=== PATIENT | male | born 1950 | race Caucasian/White ===

== ENCOUNTER 2019-08-12 18:18 | Inpatient (IN) | payer OTHER, MEDICARE ==
--- OUTSIDE RECORDS SUMMARY | 2019-08-12 18:21 | XMS REPORT ---
:1950 [facility] [place] [address] Care Team Providers Name Role Phone Unavailable Unavailable Unavailable Payers Payer Name Policy Type Policy Number Effective Date Expiration Date Problems This patient has no known problems. Allergies, Adverse Reactions, Alerts Allergy Allergy Status Severity Reaction(s) Onset Inactive Treating Comments Name Type Date Date Clinician No Known DA Active U 2018-11 Allergies -14 00:00:0 0 No Known DA Active U 2017-06 Allergies -04 00:00:0 0 Medications This patient has no known medications. Results Test Description Test Time Test Comments Text Results Atomic Results Result Comments - XR PELVIS 1/2 VIEWS 2018-12-08 12:21:00 Patient Name: KYLEIGH LY Unit No: [id number] EXAMS: CPT CODE: [id number] XR PELVIS 1/2 VIEWS 14987 AP view the pelvis COMMENT: COMPARISON: No prior exams available. Completed total is a hip arthroplasty. Prosthesis appears to be in good position. at 1221 Reported and signed by: Sharlene Sow MD CC: Lori Nazario MD Technologist: KECIA MENDEZ, RT(R) Transcribed D/ (1221) tMANUELG [facility] NAME: KYLEIGH LY [address] [facility] [address] PHYS: PATAN.06 - Lori Nazario : 1950 AGE: 68 SEX: M [place], [place] [address] LOC: Y.507 A PHONE #: [phone] EXAM DATE: 12/04/2018 STATUS: DIS IN FAX #: [phone] RAD #: D/C DT 12/06/2018 PAGE 1 Signed Report Patient Name: KYLEIGH LY Unit No: [id number] EXAMS: CPT CODE: [id number] XR PELVIS 1/2 VIEWS 54236 <Continued> Orig Print D/T: S: 12/08/2018 (1224) [facility] NAME: KYLEIGH LY [address] [facility] [address] PHYS: PATAN.06 - Nazario,Lori Oliva : 1950 AGE: 68 SEX: M [place], [place] [address] LOC: Y.507 A PHONE #: [phone] EXAM DATE: 12/04/2018 STATUS: DIS IN FAX #: [phone] RAD #: D/C DT 12/06/2018 PAGE 2 Signed Report GLUBED 2018-12-06 05:41:00 Test Item Value Reference Range Comments GLUBED (test code=GLUBED) 198 mg/dL 60-125 [id number] 20:19:00 Test Item Value Reference Range Comments GLUBED (test code=GLUBED) 278 mg/dL 60-125 GLYCOSYLATED HEMOGLOBIN (HA1C)2018-12-05 19:15:00 Test Item Value Reference Range Comments GLYCOSYLATED HEMOGLOBIN 7.5 % 4.8-5.9 Any condition that shortens (HA1C) (test code=GLYHGB) erythocyte survival or decreasesmean erythrocyte age (e.g., recovery from acute blood loss,hemolytic anemai) will falsely lower HGBA1c resultsregardless of the method used. HGBA1c results frompatients with HbSS, HbCC and HbSc must be interpreted withcaution given the pathological processes, including anemia,increased red cell turnover, transfusion requirements, thatadversely impact HGBA1c as a marker of long-term glycemiccontrol. Alternative forms of testing such as fructosamineshould be considered for these patients.DONE AT: [facility] [address] [place] [address] [id number] 16:46:00 Test Item Value Reference Range Comments GLUBED (test code=GLUBED) 313 mg/dL 60-125 [id number] 11:46:00 Test Item Value Reference Range Comments GLUBED (test code=GLUBED) 322 mg/dL 60-125 BASIC METABOLIC [id number] 06:12:00 Test Item Value Reference Range Comments SODIUM (test code=NA) 138 mmol/L 136-145 POTASSIUM (test code=K) 4.3 mmol/L 3.5-5.1 CHLORIDE (test code=CL) 102.0 mmol/L 98-107 CARBON DIOXIDE (test 27.9 mmol/L 21-32 code=CO2) GLUCOSE (test code=GLU) 275 mg/dL 70-110 BLOOD UREA NITROGEN (test 30 mg/dL 7-18 code=BUN) GLOMERULAR FILTRATION RATE 75.0 >60 Unit of measure: (test code=GFR) mL/min/1.73 x5Vyhqqvwyq Range:Healthy Adults >90 mL/min/1.73 m2 For Chronic Kidney Disease: Stage II Mild Decrease in GFR 60-90 Stage III Moderate Decrease in GFR 30-59 Stage IV Severe Decrease in GFR 15-29 Stage V Kidney Failure <15 CREATININE (test code=CREAT) 0.99 mg/dL 0.55-1.30 CALCIUM (test code=CA) 7.8 mg/dL 8.2-10.1 HGB [id number] 05:50:00 Test Item Value Reference Range Comments HEMOGLOBIN (test code=HGB) 10.3 g/dL 12-16 HEMATOCRIT (test code=HCT) 29.8 % 37-47 [id number] 05:31:00 Test Item Value Reference Range Comments GLUBED (test code=GLUBED) 217 mg/dL 60-125 [id number] 20:07:00 Test Item Value Reference Range Comments GLUBED (test code=GLUBED) 297 mg/dL 60-125 [id number] 16:55:00 Test Item Value Reference Range Comments GLUBED (test code=GLUBED) 306 mg/dL 60-125 - XR KNEE 1 OR 2 V [id number] 16:37:00 Patient Name: KYLEIGH LY Unit No: [id number] EXAMS: CPT CODE: [id number] XR KNEE 1 OR 2 [place] [address] COMPARISON: None IMAGES PROVIDED: AP view the pelvis and 5 views of the leftfemur FINDINGS: Acute transcervical left femoral neck fracture is demonstrated with 2 mm of superior displacement. Mild left hip joint degenerative changes. Enthesophytes are seen about the greater tuberosity. Vascular calcifications are present. No acute findings of the left knee. IMPRESSION: Acute left femoral neck fracture. Electronically Signed by Sarah Trent on 12/04/2018 at 1637 Reported and signed by: Shine Trent M.D. CC: Bill Mitchell MD; Calin Bowie MD Technologist: RT Dakotah.(R) Transcribed D/T: 2018 (2397) [facility] NAME: KYLEIGH LY [address] [facility] PHYS : Calin Ronquillo MD : 1950 AGE: 68 SEX: M [place] [address] LOC: Y.507 A PHONE #: [phone] EXAM DATE: 12/04/2018 STATUS: ADM IN FAX#: [phone] RAD #: D/C DT PAGE 1Signed Report Patient Name: KYLEIGH LY Unit No: [id number] EXAMS: CPT CODE: [id number] XR KNEE 1 [place] [address] [place] [address] <Continued> Orig Print D/T: S: 12/04/2018 (1640) [facility] NAME: KYLEIGH LY [address] [facility] PHYS: Calin Ronquillo MD : 1950 AGE: 68 SEX: M [place], [place] [address] LOC: Y.507 A PHONE #: EXAM DATE: 12/04/2018 STATUS: ADM IN FAX #: [phone] RAD #: D/C DT PAGE 2 Signed Report- XR HIP W/PEL UNI 2+V [id number] 16:37:00 Patient Name: KYLEIGH LY Unit No: [id number] EXAMS: CPT CODE: [id number] XR HIP W/PEL UNI 2+[place] [address] COMPARISON: None IMAGES PROVIDED: AP view the pelvis and 5 views of the leftfemur FINDINGS: Acute transcervical left femoral neck fracture is demonstrated with 2 mm of superior displacement. Mild left hip joint degenerative changes. Enthesophytes are seen about the greater tuberosity. Vascular calcifications are present. No acute findings of the left knee. IMPRESSION: Acute left femoral neck fracture. Electronically Signed by Sarah Trent on 2018 at 1637 Reported and signed by: Shine Trent M.D. CC: Bill Mitchell MD ; Calin Bowie MD Technologist: Dakotah RT.(R) Transcribed D/ (6587) [facility] NAME: KYLEIGH LY [address] [facility] PHYS: Calin Ronquillo MD : 1950 AGE: 68 SEX: M [place], [place] [address] LOC: Y.507 A PHONE #: [phone] EXAM DATE: STATUS: ADM IN FAX#: [phone] RAD #: D/C DT PAGE 1Signed Report Patient Name: KYLEIGH LY Unit No: [id number] EXAMS: CPT CODE: [id number] XR HIP W /PEL UNI 2+[place] [address] <Continued> Orig Print D/T: S: 12/04/2018 (1640) [facility] NAME: KYLEIGH LY [address] [facility] PHYS: Calin Ronquillo MD : 1950 AGE: 68 SEX: M [place], [place] [address] LOC: Y.507 A PHONE #: [phone] EXAM DATE: 12/04/2018 STATUS: ADM IN FAX #: [phone] RAD #: D/C DT PAGE 2 Signed [id number] 12:39:00 Test Item Value Reference Range Comments GLUBED (test code=GLUBED) 276 mg/dL 60-125 COMPREHENSIVE METABOLIC [id number] 06:53:00 Test Item Value Reference Range Comments SODIUM (test code=NA) 138 mmol/L 136-145 POTASSIUM (test code=K) 3.9 mmol/L 3.5-5.1 CHLORIDE (test code=CL) 97.0 mmol/L 98-107 CARBON DIOXIDE (test code=CO2) 23.3 mmol/L 21-32 GLUCOSE (test code=GLU) 228 mg/dL 70-110 BLOOD UREA NITROGEN (test 21 mg/dL 7-18 code=BUN) GLOMERULAR FILTRATION RATE 98.7 >60 Unit of measure: (test code=GFR) mL/min/1.73 [id number] Range:Healthy Adults >90 mL/min/1.73 m2 For Chronic Kidney Disease: Stage II Mild Decrease in GFR 60-90 Stage III Moderate Decrease in GFR 30-59 Stage IV Severe Decrease in GFR 15-29 Stage V Kidney Failure <15 CREATININE (test code=CREAT) 0.78 mg/dL 0.55-1.30 TOTAL PROTEIN (test code=PROT) 8.1 g/dL 6.4-8.2 ALBUMIN (test code=ALB) 4.3 g/dL 3.4-5.0 GLOBULIN (test code=GLOB) 3.8 g/dL 2.2-4.2 ALBUMIN/GLOBULIN RATIO (test 1.1 0.7-2.0 code=A/G) CALCIUM (test code=CA) 9.6 mg/dL 8.2-10.1 BILIRUBIN TOTAL (test 0.73 mg/dL 0.2-1.00 code=BILT) SGOT/AST (test code=AST) 28.0 U/L 15-37 SGPT/ALT (test code=ALT) 39.0 U/L 12-78 Please note new normal range. ALKALINE PHOSPHATASE TOTAL 66 U/L 46-116 (test code=ALKP) PROTHROMBIN [id number] 06:41:00 Test Item Value Reference Range Comments PROTHROMBIN TIME PATIENT 11.8 secs 10.1-12.5 (test code=PTP) INTERNATIONAL NORMAL RATIO 1.04 <2.0 RECOMMENDED THERAPEUTIC RANGE (test code=INR) FOR ORAL ANTICOAGULANTTREATMENT: CONDITION INRProphylaxis of venous thrombosis in 2.0 - 3.0 high-risk medical or surgical patientsTreatment of venous thrombosis 2.0 - 3.0Prevention of embolism 2.0 - 3.0Prevention of recurrent embolism, or 3.0 - 4.5 patients with mechanical prosthetic intravascular valves IS PATIENT ON ANTICOAGULANTS ? YLIST ANTICOAGULANT/ANTI PLT MEDICATION : Plavix (Anti-PLT)Has Lab been notified if Patient is on Heparin Drip? YESAddn't Lab Tests to be ordered if Y. NIf Yes, order CBC, OCCULT BLOOD, PT every other day NTHROMBOPLASTIN TIME [id number] 06:41:00 Test Item Value Reference Range Comments PTT ACTIVATED (test code=APTT) 31.1 secs 24.9-37.0 IS PATIENT ON ANTICOAGULANTS ? YLIST ANTICOAGULANT/ANTI PLT MEDICATION : Plavix (Anti-PLT)Has Lab been notified if Patient is on Heparin Drip? YESAddn't Lab Tests to be ordered if Y. NIf Yes, order CBC, OCCULT BLOOD, PT every other day [id number] 05:53:00 Test Item Value Reference Range Comments GLUBED (test code=GLUBED) 221 mg/dL 60-125 CBC W/AUTO [id number] 05:41:00 Test Item Value Reference Range Comments WHITE BLOOD CELL (test code=WBC) 10.3 K/mm3 5.7-10.5 RED BLOOD CELL (test code=RBC) 4.39 M/mm3 4.2-5.4 HEMOGLOBIN (test code=HGB) 14.1 g/dL 12-16 HEMATOCRIT (test code=HCT) 40.7 % 37-47 MEAN CELL VOLUME (test code=MCV) 93 fL 80-98 MEAN CELL HGB (test code=MCH) 32.1 pg 27-34 MEAN CELL HGB CONCENTRATION (test code=MCHC) 34.6 g/dL 30.8-34.1 RED CELL DISTRIBUTION WIDTH (test code=RDW) 11.9 % 11-16 PLT (test code=PLT) 163 K/mm3 130-400 MEAN PLATELET VOLUME (test code=MPV) 11.0 fL 8.9-12.1 NEUTROPHIL % (test code=NT%) 81.5 % 45-70 LYMPHOCYTE % (test code=LY%) 10.5 % 20-40 MONOCYTE % (test code=MO%) 6.2 % 3-10 EOSINOPHIL % (test code=EO%) 0.1 % 1-5 BASOPHIL % (test code=BA%) 0.3 % 0.0-1.1 NEUTROPHIL # (test code=NT#) 8.42 K/mm3 2.00-7.50 LYMPHOCYTE # (test code=LY#) 1.08 K/mm3 1.50-4.00 MONOCYTE # (test code=MO#) 0.64 K/mm3 0.2-0.8 EOSINOPHIL # (test code=EO#) 0.01 K/mm3 0.04-0.4 BASOPHIL # (test code=BA#) 0.03 K/mm3 0.02-0.10 MANUAL DIFF REQUIRED (test code=MDIFF) NO MANUAL DIFF NUCLEATED RED BLOOD CELL (test code=NRBC) 0 % 0-0
[2019-08-12 19:03] LABS: Absolute Lymphocytes (CBC) 2.6 K/uL (0.7-4.9); Basophils % 0.6 % (0-1.3); Hematocrit 38.8 % (39.6-49.0); Lymphocytes % 38.7 % (15.3-44.8); MPV 7.9 fL (7.6-11.3); RBC Red Blood Cell Count 4.09 M/uL (4.33-5.43)
[2019-08-12 19:14] LABS: Protime INR 0.99
--- NOTE | 2019-08-12 19:34 | RAD REPORT ---
EXAM DESCRIPTION: Saman Single View08/12/2019 7:24 pm CLINICAL HISTORY: Chest pain COMPARISON: 2011 FINDINGS: The lungs appear clear of acute infiltrate. The heart is mildly enlarged. Postsurgical changes involve the chest. IMPRESSION: No acute abnormalities displayed
[2019-08-12 19:38] LABS: Albumin 3.9 g/dL (3.4-5.0); Bilirubin Direct 0.1 mg/dL (0-0.2); Bilirubin Total 0.5 mg/dL (0.2-1.0); Protein, Total 7.5 g/dL (6.4-8.2)
[2019-08-12 19:42] LABS: Troponin (Emerg Dept Use Only) 0.56 ng/mL (0.0-0.045)
[2019-08-12] MEDS ORDERED: ASPIRIN 81 MG CHEWABLE TABLET ONE (19:56)
[2019-08-12] MEDS ORDERED: ENOXAPARIN 60 MG/0.6 ML SQ ONE (19:56)
--- NOTE | 2019-08-12 20:45 | ER ---
[facility] Name: Ehsan Emmanuel Age: 69 yrs Sex: Male : 1950 Arrival Date: 08/12/2019 Time: 18:19 Bed 19 Private MD: Diagnosis: Non-ST elevation (NSTEMI) myocardial infarction Presentation: 08/12 18:21 Presenting complaint: Patient states: "Yesterday I was doing some physical labor, and I aj1 ended up with this pain right under my breast bone and I couldn't sleep last night. I wear a C-PAP and I couldn't seem to get enough air. Today its the same thing. I can't get rid of this pain, and I'm still short of breath. Back in 2002 I ended up with a heart attack, weakness was my only symptom that time and I ended up with a triple bypass.". Transition of care: patient was not received from another setting of care. Onset of symptoms was August 11, 2019. Risk Assessment: Do you want to hurt yourself or someone else? Patient reports no desire to harm self or others. Initial Sepsis Screen: Does the patient meet any 2 criteria? HR > 90 bpm. No. Patient's initial sepsis screen is negative. Does the patient have a suspected source of infection? No. Patient's initial sepsis screen is negative. Care prior to arrival: None. 18:21 Method Of Arrival: Ambulatory aj 18:21 Acuity: IZABELLA 2 aj1 Triage Assessment: 18:33 General: Appears in no apparent distress. uncomfortable, Behavior is calm, cooperative, aj1 appropriate for age. Pain: Complains of pain in chest Pain currently is 2 out of 10 on a pain scale. Neuro: Level of Consciousness is awake, alert, obeys commands. Cardiovascular: Reports chest pain, Patient's skin is warm and dry. Respiratory: Airway is patent Respiratory effort is even, unlabored, Respiratory pattern is regular, symmetrical. Historical: - Allergies: 18:33 No Known Allergies; aj1 - Home Meds: 18:33 carvedilol 25 mg oral tab 1 tab 2 times per day [Active]; clopidogrel 75 mg oral tab 1 aj1 tab once daily [Active]; curaphen [Active]; Curcumin miscellaneous daily [Active]; duloxetine 60 mg oral cpDR 1 cap once daily [Active]; Ecotrin 81 mg Oral once daily [Active]; exelon patch 4.6 mg [Active]; Ferrous Sulfate Oral twice daily [Active]; glipizide-metformin 5-500 mg oral tab 1 tab 2 times per day [Active]; pravastatin 40 mg oral tab 1 tab once daily [Active]; tamsulosin 0.4 mg oral cp24 1 cap once daily [Active]; Trulicity 1.5 mg/0.5 mL subcutaneous pnij 0.5 mL once wkly [Active]; Restasis ophthalmic ophthalmic [Active]; - PMHx: 18:33 Diabetes - NIDDM; Myocardial infarction; colon cancer- currently in remission; aj1 Hypertension; Hyperlipidemia; - Immunization history:: Flu vaccine is up to date. - Social history:: Smoking status: Patient/guardian denies using tobacco. - Ebola Screening: : Patient denies travel to an Ebola-affected area in the 21 days before illness onset. Screenin:54 Abuse screen: Denies threats or abuse. Denies injuries from another. Nutritional mg2 screening: No deficits noted. Tuberculosis screening: No symptoms or risk factors identified. Fall Risk IV access (20 points). Assessment: 18:53 General: Appears in no apparent distress. comfortable, Behavior is calm, cooperative. mg2 Pain: Complains of pain in chest Pain does not radiate. Quality of pain is described as aching, dull, Pain began gradually, 1 day ago. Is intermittent. Neuro: Level of Consciousness is awake, alert, obeys commands, Oriented to person, place, time, situation. Cardiovascular: Capillary refill < 3 seconds Patient's skin is warm and dry. Respiratory: Airway is patent Respiratory effort is even, unlabored, Respiratory pattern is regular, symmetrical. GI: No signs and/or symptoms were reported involving the gastrointestinal system. : No signs and/or symptoms were reported regarding the genitourinary system. EENT: No signs and/or symptoms were reported regarding the EENT system. Derm: Skin is intact, is healthy with good turgor, Skin is pink, warm \\T\\ dry. normal. Musculoskeletal: Circulation, motion, and sensation intact. Capillary refill < 3 seconds. Vital Signs: 18:33 BP 156 / 86; Pulse 77; Resp 18; Temp 97.5; Pulse Ox 99% on R/A; Weight 116.57 kg (R); aj1 Height 6 ft. 11 in. (210.82 cm) (R); Pain 2/10; 18:53 BP 119 / 67 RA (/reg); Pulse 76; Resp 15 S; Temp 98.7(O); Pulse Ox 99% on R/A; Pain jp3 2/10; 19:30 BP 135 / 70; Pulse 79; Resp 18; Pulse Ox 98% on R/A; rv 20:00 BP 154 / 85; Pulse 74; Resp 17; Pulse Ox 100% on R/A; rv 20:30 BP 147 / 75; Pulse 74; Resp 17; Pulse Ox 98% on R/A; rv 21:00 BP 141 / 75; Pulse 81; Resp 17; Pulse Ox 99% on R/A; rv 21:30 BP 143 / 75; Pulse 81; Resp 18; Pulse Ox 99% on R/A; rv 22:00 BP 142 / 80; Pulse 74; Resp 17; Pulse Ox 100% on R/A; rv 23:00 BP 153 / 83; Pulse 71; Resp 17; Pulse Ox 99% on R/A; rv 18:33 Body Mass Index 26.23 (116.57 kg, 210.82 cm) aj1 ED Course: 18:19 Patient arrived in ED. as 18:25 Triage completed. aj1 18:32 Bonifacio Pena, RN is Primary Nurse. rv 18:33 Arm band placed on Patient placed in an exam room. aj1 18:45 Florentin Nieves PA is PHCP. [facility] 18:45 Luz Domingo MD is Attending Physician. [facility] 18:49 EKG done, by ED staff, reviewed by Luz Domingo MD. Patient maintains SpO2 jp3 saturation greater than 95% on room air. 18:50 Placed in gown. Bed in low position. Call light in reach. Side rails up X 1. Side rails jp3 up X2. Verbal reassurance given. websphere message broker developer on. Pulse ox on. NIBP on. 18:55 No provider procedures requiring assistance completed. Inserted saline lock: 20 gauge mg2 in right forearm, using aseptic technique. Blood collected. 19:24 XRAY Chest (1 view) In Process Unspecified. EDMS 20:18 EKG done, by ED staff, reviewed by Florentin ELIAS. jp3 20:35 CT Chest For PE Angio In Process Unspecified. EDMS 20:45 Bill Mitchell MD is Hospitalizing Provider. jmm 23:36 Patient admitted, IV remains in place. rv Administered Medications: 20:15 Drug: Aspirin Chewable Tablet 324 mg Route: PO; rv 23:38 Follow up: Response: No adverse reaction rv 20:15 Drug: Lovenox 1 mg/kg Route: Sub-Q; Site: abdomen; rv 23:38 Follow up: Response: No adverse reaction rv 21:55 Drug: pravastatin Sodium 40 mg Route: PO; rv 23:37 Follow up: Response: No adverse reaction rv 21:55 Drug: Flomax 0.4 mg Route: PO; rv 23:37 Follow up: Response: No adverse reaction rv 22:13 Drug: carvedilol 25 mg Route: PO; rv 23:37 Follow up: Response: No adverse reaction rv 22:13 Drug: Cymbalta 60 mg Route: PO; rv 23:37 Follow up: Response: No adverse reaction rv Outcome: 20:45 Decision to Hospitalize by Provider. jmm 23:36 Admitted to ER Hold. Please see [facility] for further documentation. rv 23:36 Condition: good 23:36 Instructed on the need for admit. 08/13 12:20 Admitted to ICU accompanied by nurse, accompanied by tech, via stretcher, on monitor, aa5 with chart, Report called to AJ Carmona Condition: stable 12:25 Patient left the ED. aa5 Signatures: Dispatcher [employer] EDMS Rola Esquivel RN RN aj1 Florentin Nieves PA PA jmm Martinez, Amelia as Calderon, Audri, RN RN [id number] Ariana Robledo Iris Crawley Michele RN AJ mg2 Bonifacio Pena RN RN rv Gaurang Juares jp3 Corrections: (The following items were deleted from the chart) 15:07 07:20 BP 146 / 82; Pulse 70bpm; Resp 19bpm; Pulse Ox 96% RA; Temp 98.7F Oral; mh5 aa5 15:07 09:19 BP 165 / 95; Pulse 74bpm; Resp 16bpm; Pulse Ox 99% RA; Temp 98.5F Oral; mh5 aa5 15:07 12:49 Patient left the ED. aa5
--- NOTE | 2019-08-12 20:45 | RAD REPORT ---
EXAM DESCRIPTION: CT - Chest For Pe Angio - 08/12/2019 8:34 pm CLINICAL HISTORY: Chest pain COMPARISON: None. TECHNIQUE: Dynamically enhanced axial 3 mm thick images of the chest were obtained during administra tion of <100> mL Isovue 370 IV contrast. Coronal and oblique reconstruction images were generated and reviewed. Exam utilizes a protocol for optimal evaluation of pulmonary arterial tree. Maximum intensity projections 3D imaging was utilized All CT scans are performed using dose optimization technique as appropriate and may include automated exposure control or mA/KV adjustment according to patient size. FINDINGS: A pulmonary embolus is not seen. A thoracic aortic aneurysm is not noted. A pleural effusion is not seen. A pericardial effusion is not seen. A lung consolidation is not present. Multiple gallstones. Gallbladder wall does not appear thickened IMPRESSION: Negative for a pulmonary embolism. Cholelithiasis
--- NOTE | 2019-08-12 20:46 | EDPHYS ---
Physician Documentation [facility] Name: Ehsan Emmanuel Age: 69 yrs Sex: Male : 1950 Arrival Date: 08/12/2019 Time: 18:19 Bed 19 Private MD: ED Physician Luz Domingo HPI: 08/12 20:29 This 69 yrs old Male presents to ER via Ambulatory with complaints of Chest jmm Pain. 20:29 The patient or guardian reports chest pain that is located primarily in the substernal jmm area. Onset: gradually, 1 day(s) ago. The pain does not radiate. Associated signs and symptoms: Pertinent positives: shortness of breath. The chest pain is described as aching. Duration: The patient or guardian reports a single episode, that is still ongoing. Modifying factors: The symptoms are alleviated by nothing. the symptoms are aggravated by nothing. This is a 69 year old male with a history of DM, OH, colon cancer that presents to the ED with complaints of chest pain beginning last night. Patient states developing shortness of breath. Patient denies radiation of pain. Denies fever. Denies cough. . Historical: - Allergies: 18:33 No Known Allergies; aj1 - Home Meds: 18:33 carvedilol 25 mg oral tab 1 tab 2 times per day [Active]; clopidogrel 75 mg oral tab 1 aj1 tab once daily [Active]; curaphen [Active]; Curcumin miscellaneous daily [Active]; duloxetine 60 mg oral cpDR 1 cap once daily [Active]; Ecotrin 81 mg Oral once daily [Active]; exelon patch 4.6 mg [Active]; Ferrous Sulfate Oral twice daily [Active]; glipizide-metformin 5-500 mg oral tab 1 tab 2 times per day [Active]; pravastatin 40 mg oral tab 1 tab once daily [Active]; tamsulosin 0.4 mg oral cp24 1 cap once daily [Active]; Trulicity 1.5 mg/0.5 mL subcutaneous pnij 0.5 mL once wkly [Active]; Restasis ophthalmic ophthalmic [Active]; - PMHx: 18:33 Diabetes - NIDDM; Myocardial infarction; colon cancer- currently in remission; aj1 Hypertension; Hyperlipidemia; - Immunization history:: Flu vaccine is up to date. - Social history:: Smoking status: Patient/guardian denies using tobacco. - Ebola Screening: : Patient denies travel to an Ebola-affected area in the 21 days before illness onset. ROS: 20:29 Constitutional: Negative for fever, chills, and weight loss. jmm 20:29 Cardiovascular: Positive for chest pain. 20:29 Respiratory: Positive for shortness of breath. 20:29 All other systems are negative. Exam: 20:29 Constitutional: This is a well developed, well nourished patient who is awake, alert, jmm and in no acute distress. Head/Face: atraumatic. Eyes: EOMI, no conjunctival erythema appreciated ENT: Moist Mucus Membranes Neck: Trachea midline, Supple Chest/axilla: Normal chest wall appearance and motion. 20:29 Respiratory: Normal respirations, no respiratory distress appreciated Abdomen/GI: Non distended, soft Back: Normal ROM Skin: General appearance color normal MS/ Extremity: Moves all extremities, no obvious deformities appreciated, no edema noted to the lower extremities Neuro: Awake and alert, normal gait Psych: Behavior is normal, Mood is normal, Patient is cooperative and pleasant 20:29 Cardiovascular: Rate: normal, Rhythm: regular, Pulses: no pulse deficits are appreciated. Vital Signs: 18:33 BP 156 / 86; Pulse 77; Resp 18; Temp 97.5; Pulse Ox 99% on R/A; Weight 116.57 kg (R); aj1 Height 6 ft. 11 in. (210.82 cm) (R); Pain 2/10; 18:53 BP 119 / 67 RA (/reg); Pulse 76; Resp 15 S; Temp 98.7(O); Pulse Ox 99% on R/A; Pain jp3 2/10; 19:30 BP 135 / 70; Pulse 79; Resp 18; Pulse Ox 98% on R/A; rv 20:00 BP 154 / 85; Pulse 74; Resp 17; Pulse Ox 100% on R/A; rv 20:30 BP 147 / 75; Pulse 74; Resp 17; Pulse Ox 98% on R/A; rv 21:00 BP 141 / 75; Pulse 81; Resp 17; Pulse Ox 99% on R/A; rv 21:30 BP 143 / 75; Pulse 81; Resp 18; Pulse Ox 99% on R/A; rv 22:00 BP 142 / 80; Pulse 74; Resp 17; Pulse Ox 100% on R/A; rv 23:00 BP 153 / 83; Pulse 71; Resp 17; Pulse Ox 99% on R/A; rv 18:33 Body Mass Index 26.23 (116.57 kg, 210.82 cm) aj1 MDM: 18:53 Patient medically screened. jennifer 20:43 Data reviewed: vital signs, nurses notes. Counseling: I had a detailed discussion with jennifer the patient and/or guardian regarding: the historical points, exam findings, and any diagnostic results supporting the discharge/admit diagnosis, lab results, the need for further work-up and treatment in the hospital. ED course: I discussed the patient with Dr. Andino whom will consult admission. Recommended npo after midnight. I discussed the patient with Dr. Mitchell whom accepted admission. . 08/12 18:36 Order name: Basic Metabolic Panel; Complete Time: 19:51 mg2 08/12 18:36 Order name: CBC with Diff; Complete Time: 19:15 mg2 08/12 18:36 Order name: LFT's; Complete Time: 19:51 mg2 08/12 18:36 Order name: Magnesium; Complete Time: 19:51 mg2 08/12 18:36 Order name: NT PRO-BNP; Complete Time: 19:51 mg2 08/12 18:36 Order name: PT-INR; Complete Time: 19:29 mg2 08/12 18:36 Order name: Troponin (emerg Dept Use Only); Complete Time: 19:51 mg2 08/12 18:36 Order name: XRAY Chest (1 view); Complete Time: 19:38 mg2 08/12 21:08 Order name: Basic Metabolic Panel EDIL 08/12 21:08 Order name: Basic Metabolic Panel EDIL 08/12 21:09 Order name: Troponin I; Complete Time: 23:20 EDIL 08/13 05:46 Order name: Troponin I EDIL 08/13 05:52 Order name: CBC with Automated Diff EDIL 08/13 08:02 Order name: Glucose, Ancillary Testing EDIL 08/12 18:36 Order name: EKG; Complete Time: 18:37 mg2 08/12 18:36 Order name: Cardiac monitoring; Complete Time: 18:51 mg2 08/12 18:36 Order name: EKG - Nurse/Tech; Complete Time: 18:52 mg2 08/12 20:19 Order name: CT Chest For PE Angio; Complete Time: 20:49 [facility] 08/12 21:09 Order name: CONS Physician Consult EDIL 08/12 21:09 Order name: Consistent Carb (ADA) 2000 [address] EDMS 08/12 21:09 Order name: EKG Electrocardiogram EDIL 08/12 21:09 Order name: EKG Electrocardiogram EDIL 08/12 21:09 Order name: EKG Electrocardiogram EDIL 08/12 21:09 Order name: EKG Electrocardiogram [facility] 08/12 18:36 Order name: IV Saline Lock; Complete Time: 18:52 [facility] 08/12 18:36 Order name: Labs collected and sent; Complete Time: 18:52 [facility] 08/12 18:36 Order name: O2 Per Protocol; Complete Time: 18:52 [facility] 08/12 18:36 Order name: O2 Sat Monitoring; Complete Time: 18:52 [facility] 08/12 19:52 Order name: EKG - Nurse/Tech; Complete Time: 20:07 [facility] Administered Medications: 20:15 Drug: Aspirin Chewable Tablet 324 mg Route: PO; rv 23:38 Follow up: Response: No adverse reaction rv 20:15 Drug: Lovenox 1 mg/kg Route: Sub-Q; Site: abdomen; rv 23:38 Follow up: Response: No adverse reaction rv 21:55 Drug: pravastatin Sodium 40 mg Route: PO; rv 23:37 Follow up: Response: No adverse reaction rv 21:55 Drug: Flomax 0.4 mg Route: PO; rv 23:37 Follow up: Response: No adverse reaction rv 22:13 Drug: carvedilol 25 mg Route: PO; rv 23:37 Follow up: Response: No adverse reaction rv 22:13 Drug: Cymbalta 60 mg Route: PO; rv 23:37 Follow up: Response: No adverse reaction rv Disposition: 08/12/19 20:45 Hospitalization ordered by Bill Mitchell for Inpatient Admission. Preliminary diagnosis is Non-ST elevation (NSTEMI) myocardial infarction. - Bed requested for Intensive Care Unit. - Status is Inpatient Admission. eb - Condition is Stable. - Problem is new. - Symptoms are unchanged. UTI on Admission? No Signatures: Dispatcher [employer] EDMS Rola Esquivel RN RN aj1 Beulah Min RN RN dw Mickail, Joel, PA PA jmm Garcia, Cookie, RN RN cg Reyna Iris Myke Singletary, RN RN [facility] Bonifacio Pena, RN RN rv Corrections: (The following items were deleted from the chart) 22:44 20:45 Hospitalization Ordered by Bill Mitchell MD for Inpatient Admission. Preliminary cg diagnosis is Non-ST elevation (NSTEMI) myocardial infarction. Bed requested for Telemetry/MedSurg (Inpatient). Status is Inpatient Admission. Condition is Stable. Problem is new. Symptoms are unchanged. UTI on Admission? No. [facility] 22:44 22:44 08/12/2019 20:45 Hospitalization Ordered by Bill Mitchell MD for Inpatient cg Admission. Preliminary diagnosis is Non-ST elevation (NSTEMI) myocardial infarction. Bed requested for RUST ER HOLD. Status is Inpatient Admission. Condition is Stable. Problem is new. Symptoms are unchanged. UTI on Admission? No. 08/13 10:58 08/12 22:44 08/12/2019 20:45 Hospitalization Ordered by Bill Mitchell MD for Inpatient dw Admission. Preliminary diagnosis is Non-ST elevation (NSTEMI) myocardial infarction. Bed requested for RUST ER HOLD. Status is Inpatient Admission. Condition is Stable. Problem is new. Symptoms are unchanged. UTI on Admission? No. 08/13 12:49 10:58 08/12/2019 20:45 Hospitalization Ordered by Bill Mitchell MD for Inpatient eb Admission. Preliminary diagnosis is Non-ST elevation (NSTEMI) myocardial infarction. Bed requested for Intensive Care Unit. Status is Inpatient Admission. Condition is Stable. Problem is new. Symptoms are unchanged. UTI on Admission? No. dw
[2019-08-12] MEDS ORDERED: ACETAMINOPHEN 500 MG TAB PO PRN (21:05)
[2019-08-12] MEDS ORDERED: ONDANSETRON 4 MG/2 ML VIAL IV PRN (21:05)
[2019-08-12] MEDS ORDERED: MORPHINE 4 MG/ML SYR IV PRN (21:05)
[2019-08-12] MEDS ORDERED: TAMSULOSIN 0.4 MG SR CAP ONE (21:29)
[2019-08-12] MEDS ORDERED: DULOXETINE 30 MG CAP PO ONE (21:54)
[2019-08-12] MEDS: carvediloL 25 MG TAB ONE (21:55)
[2019-08-13 00:24] VITALS: BMI 26.2
[2019-08-13 05:42] LABS: BUN Blood Urea Nitrogen 14 mg/dL (7-18); Bicarbonate 29 mmol/L (21-32); Glucose Level 196 mg/dL (74-106); Potassium 3.6 mmol/L (3.5-5.1); Sodium Level 140 mmol/L (136-145)
[2019-08-13 05:47] LABS: Absolute Lymphocytes (CBC) 2.3 K/uL (0.7-4.9); Basophils % 0.5 % (0-1.3); Hematocrit 36.5 % (39.6-49.0); MPV 7.9 fL (7.6-11.3); RBC Red Blood Cell Count 3.81 M/uL (4.33-5.43)
--- NOTE | 2019-08-13 06:13 | EKG ---
Test Date: 2019-08-12 Test Time: 20:08:11 Wildlife Biology Technician: RV MEASUREMENT RESULTS: Intervals: Rate: 69 FL: 242 QRSD: 94 QT: 458 QTc: 490 [place]: P: 66 FL: 242 QRS: 71 T: 193 INTERPRETIVE STATEMENTS: Sinus rhythm with 1st degree AV block T wave abnormality, consider inferior ischemia T wave abnormality, consider anterolateral ischemia Prolonged QT Abnormal ECG Compared to ECG 08/12/2019 18:40:22 First degree AV block now present T-wave abnormality now present Sinus arrhythmia no longer present ST (T wave) deviation no longer present Possible ischemia still present Electronically Signed On 08-13-19 06:12:47 RESIDENTIAL ENERGY AUDITOR by Kofi Diaz
--- NOTE | 2019-08-13 06:14 | EKG ---
Test Date: 2019-08-12 Test Time: 18:40:22 [employer]: DESTINI MEASUREMENT RESULTS: Intervals: Rate: 76 MI: 200 QRSD: 88 QT: 428 QTc: 481 [place]: P: 16 MI: 200 QRS: 71 T: 190 INTERPRETIVE STATEMENTS: Normal sinus rhythm with sinus arrhythmia ST & T wave abnormality, consider inferior ischemia ST & T wave abnormality, consider anterolateral ischemia Prolonged QT Abnormal ECG Compared to ECG 08/12/2019 18:39:31 ST (T wave) deviation now present Possible ischemia now present Prolonged QT interval now present Electronically Signed On 08-13-19 06:13:25 HEAD GREENSKEEPER by Kofi Diaz
--- NOTE | 2019-08-13 06:14 | EKG ---
Test Date: 2019-08-12 Test Time: 18:39:31 Manager Privacy: DESTINI MEASUREMENT RESULTS: Intervals: Rate: 0 CT: QRSD: 0 QT: 0 QTc: 0 [place]: P: CT: QRS: 0 T: 0 INTERPRETIVE STATEMENTS: No QRS complexes found, no ECG analysis possible Compared to ECG 12/19/2008 20:03:23 Sinus rhythm no longer present T-wave abnormality no longer present Possible ischemia no longer present Prolonged QT interval no longer present Electronically Signed On 08-13-19 06:13:34 BLOCKING MACHINE OPERATOR SECOND by Kofi Diaz
[2019-08-13] MEDS ORDERED: ASPIRIN 81 MG CHEWABLE TABLET ONE (07:25)
[2019-08-13] MEDS ORDERED: ASPIRIN EC 81 MG TAB PO SCH (09:00)
[2019-08-13] MEDS ORDERED: carvediloL 25 MG TAB PO ONE (10:46)
[2019-08-13] MEDS ORDERED: carvediloL 6.25 MG TAB ONE (10:56)
[2019-08-13 14:21] VITALS: O2SAT 100
[2019-08-13] MEDS ORDERED: HEPA 1000U/500MLS 0 UNIT/0 ML BAG IV ONE (15:34)
[2019-08-13] MEDS ORDERED: MIDAZOLAM HCL 5 MG/5 ML INJ ONE (15:35)
[2019-08-13] MEDS ORDERED: NA CHLORIDE 0.9% 0 ML IV ONE (15:35)
[2019-08-13] MEDS ORDERED: FENTANYL CITR 100 MCG/2 ML ONE (15:35)
[2019-08-13] MEDS ORDERED: ATROPINE SULF 1 MG/10 ML SYR IV ONE (15:35)
[2019-08-13] MEDS ORDERED: NA CHLORIDE 0.9% 1,000 ML ONE (15:46)
[2019-08-13] MEDS ORDERED: HEPA 1000U/500MLS 1,000 UNIT/500 ML BAG IV ONE (16:07)
--- NOTE | 2019-08-13 17:46 | P.SSS ---
Patient History Date of Service: 08/13/19 Reason for admission: CHEST PAIN History of Present Illness: MR. LY IS A DIABETIC WITH CAD AND CABG COMES WITH CHEST PAIN FOR ABOUT 18 HOURS. HE HAD TROPONIN MILD HIGH. HE MAY HAVE HAD NSTMI. DR. SYED DID CATH AND DID NOT SEE ANY NEW FINDINGS. HIS BYPASS IS WORKING GREAT. HE IS STABLE FOR DC PER DR. SYED. Allergies No Known Allergies Allergy (Verified 07/20/16 10:17) Home Medications: Clopidogrel Bisulfate [Plavix*] 75 mg PO DAILY 05/31/16 Duloxetine HCl [Cymbalta] 60 mg PO BID 05/31/16 Krill/Om-3/Dha/Epa/Phospho/Ast [Megared [place]-3 Krill Oil Sfgl] 1 each PO DAILY 05/31/16 Pravastatin [Pravachol*] 40 mg PO DAILY 05/31/16 Tamsulosin [Flomax*] 0.4 mg PO BEDTIME 05/31/16 carvediloL [Coreg*] 25 mg PO BID 05/31/16 Aspirin [Ecotrin 81 MG] 81 mg PO DAILY 08/13/19 Curcumin 500 gm MC BID 08/13/19 Dulaglutide [Trulicity] 1.5 mg SQ Q7D 08/13/19 Glipizide/Metformin HCl [Glipizide-Metformin 5-500 mg] 2 each PO BID 08/13/19 Rivastigmine Patch [Exelon 4.6 mg Patch*] 1 each TD DAILY 08/13/19 - Past Medical/Surgical History Diabetic: Yes - Social History Smoking Status: Never smoker Alcohol use: No CD- Drugs: No Caffeine use: No Place of Residence: Home Review of Systems 10-point ROS is otherwise unremarkable Physical Examination - Vital Signs Temperature: 98.4 F Blood Pressure: 157/79 Pulse: 68 Respirations: 18 Pulse Ox (%): 100 - Physical Exam General: Alert, In no apparent distress, Obese HEENT: Atraumatic, PERRLA, Mucous membr. moist/pink, EOMI, Sclerae nonicteric Neck: Supple, 2+ carotid pulse no bruit, No LAD, Without JVD or thyroid abnormality Respiratory: Clear to auscultation bilaterally, Normal air movement Cardiovascular: Regular rate/rhythm, Normal S1 S2 Gastrointestinal: Normal bowel sounds, No tenderness Musculoskeletal: No tenderness Integumentary: No rashes Neurological: Normal gait, Normal speech, Normal strength at 5/5 x4 extr, Normal tone, Normal affect Lymphatics: No axilla or inguinal lymphadenopathy - Studies Laboratory Data (last 24 hrs) 08/12/19 18:45: PT 11.7, INR 0.99 08/12/19 18:45: WBC 6.8, Hgb 13.6, Hct 38.8 L, Plt Count 187 08/12/19 18:45: Sodium 139, Potassium 4.0, BUN 17, Creatinine 1.00, Glucose 194 H, Magnesium 2.0, Total Bilirubin 0.5, AST 28, ALT 42, Alkaline Phosphatase 68 - Diagnosis (Problem(s)) (1) Angina at rest Current Visit: Yes Status: Acute Plan: DR. SYED WAS NOT SURE ABOUT NM. HE HAS WORKING BYPASS. HE HAS SEVERE CAD BENEATH AND WILL HAVE PAIN AT TIMES. DR. SYED OKAY WITH DC HE HAS BEEN STABLE. I SAW HIMIN AM. (2) Coronary artery disease involving autologous artery coronary bypass graft Current Visit: Yes Status: Acute (3) Diabetes Current Visit: Yes Status: Acute (4) HTN (hypertension) Current Visit: Yes Status: Acute (5) Alzheimer disease Current Visit: Yes Status: Acute - Disposition Disposition: ROUTINE DISCHARGE Condition: FAIR
--- NOTE | 2019-08-13 18:08 | CON ---
Date of Consultation: 08/13/2019 Reason For Admission: Non-ST elevation myocardial infarction. History Of Present Illness: Mr. Emmanuel is a 69-year-old, had bypass x3 in the past. Has a history of hypertension, dyslipidemia, diabetes, depression, benign prostatic hypertrophy. Came in with exertio nal chest pain that lasted about a day and a half with shortness of breath. He was found to have an EKG that showed inferior ischemia. Creatinine was 1.0. Chest x-ray was negative. Troponin was ____ . BNP of 3494. He is asymptomatic now. Received Lovenox already. Past Medical History: As stated above. Allergies: NONE. Review of Systems: Negative. Social History: Negative. Family History: Noncontributory. Medications: At home include Invokana, Flomax, aspirin, Plavix, metformin, glyburide, Cymbalta, Pros car, Coreg, and Pravachol. Physical Examination: Vital Signs: Stable. Afebrile. HEENT: Negative. Neck: Supple with no bruit. Chest: Clear to auscultation and percussion. Cardiac: Revealed a regular rhythm and rate. No murmurs, gallops, or rubs. Abdomen: Benign. Extremities: Revealed no clubbing, cyanosis, or edema. Diagnostic Data: As stated earlier. Impression: 1.Non-ST elevation myocardial infarction, acute. 2.Coronary artery disease, status post coronary artery bypass graft x3. 3.Hypertension. 4.Dyslipidemia. 5.Diabetes. 6.Benign prostatic hypertrophy. 7.Depression. including Plavix and Lovenox should be held after the morning dose. I would keep him on c lear liquid and then n.p.o. after that. We will plan a heart catheterization for this afternoon to d ocument his coronary anatomy and see if we can intervene. The case was discussed with Dr. Emmanuel. He understands the risk and the benefits of the procedure and he agreed to proceed. ROSALINA/VITA Voice ID: [id number] Report ID: [id number]
[2019-08-13 18:29] VITALS: TEMP 97.9
[2019-08-13] MEDS: carvediloL 25 MG TAB ONE (18:51)
[2019-08-13 19:19] VITALS: BP 132/76
--- NOTE | 2019-08-13 23:59 | OP ---
Surgeon: Kofi Diaz MD Cloth Edge Singer: Monik Cox. History: The patient admitted to Dr. Mitchell on 08/12/2019, with a non-ST elevation myocardial infarct ion. Description Of Procedure: The patient was brought to the laborer salvage as an inpatient today, prepped and draped in the routine sterile fashion. Given Versed for sedation. Six-Trinidadian sheath was introduced in the right common femoral artery and a StarClose was used to close the case. Angiography using le ft Krystian showed 100% occlusion of the LAD, 100% occlusion of the circumflex. A JR4 was used that s howed 100% occlusion of the [place] RCA. He had a graft that was a split graft to the OM1 and to the PDA from the RCA, which was widely patent. The JOHN was widely patent to the LAD with excellent dist al flow. Six-Trinidadian sheath and catheters were used. Complications: No complications. Blood Loss: 5 mL. Postoperative Diagnosis: Status post bypass surgery, severe coronary artery disease, patent graft an d JOHN. Plan: Plan is for medical therapy. Anesthesia: Total conscious sedation for 30 minutes. ROSALINA/VITA Voice ID: [id number] Report ID: [id number]
== END 2019-08-13 20:00 | disposition home or self-care (01) | DRG 282 ==
LOC: ER 18:18 → ERHOLD 21:40 → 3RD-ICU 08-13 11:38
PROVIDERS: ADMIT Internal Medicine; ATTEND Internal Medicine
PROC: 4A023N7 Measurement of Cardiac Sampling and Pressure, Left Heart, Percutaneous Approach (ICD-10-PCS; principal; 2019-08-13)
PROC: B201YZZ Plain Radiography of Multiple Coronary Arteries using Other Contrast (ICD-10-PCS; 2019-08-13)
PROC: B203YZZ Plain Radiography of Multiple Coronary Artery Bypass Grafts using Other Contrast (ICD-10-PCS; 2019-08-13)
PROC: B205YZZ Plain Radiography of Left Heart using Other Contrast (ICD-10-PCS; 2019-08-13)
DX: I21.4 Non-ST elevation (NSTEMI) myocardial infarction (principal); I25.119 Atherosclerotic heart disease of native coronary artery with unspecified angina pectoris; I10 Essential (primary) hypertension; Z95.1 Presence of aortocoronary bypass graft; E11.9 Type 2 diabetes mellitus without complications; N40.0 Benign prostatic hyperplasia without lower urinary tract symptoms; F32.9 Major depressive disorder, single episode, unspecified; Z79.82 Long term (current) use of aspirin
CPT/HCPCS: 36415; 71045; 71275; 80048; 80076; 82947; 83735; 83880; 84484; 85025; 85610; 93005; 93455; 96372; 99285; C1893; J0583; J1650; J2250; J3010; J7030; Q9967

== ENCOUNTER 2022-06-07 20:42 | Observation (INO) | payer OTHER, MEDICARE ==
--- OUTSIDE RECORDS SUMMARY | 2022-06-07 20:46 | XMS REPORT | Continuity of Care Document ---
:1950 Author Organization [facility] t Address [facility] Alfred Cruz. [address] [place] [address] Care Team Providers Name Role Phone Juventino Jaimes V Attending Clinician Payers Payer Name Policy Type Policy Number Effective Date Expiration Date S ource Problems Condition Condition Condition Status Onset Resolution Last Treating Co mments Source Name Details Category Date Date Treatment Clinician Date UNK UNK Diagnosis Active 2016-2017-06-11 Mem oria Active 04-04 05:18:00 l 04/04/2017 00:00: Ahsan Anne Maysel Benign Benign Problem Active 2017-06-14 Mayito isidro prostatic prostatic 00:13:29 l [facility]order[facility] Active Problem 06/14/2017 [facility] Insomnia Insomnia Problem Active 2017-06-14 Memoria (disorder) (disorder) 00:13:29 l Active Alfred Problem 06/14/2017 [facility] PERSONAL PERSONAL Diagnosis Active 2017-06-11 Memoria HISTORY OF HISTORY OF 05:18:00 l COLONIC COLONIC Alfred [facility] My[facility] Problem Resolve 2017-06-14 Memoria infarction l d 00:13:29 l (disorder) infarction He rmann (disorder) Resolved Problem 06/14/20172002 [facility] Diabetes Diabetes Problem Active 2017-06-14 Memoria mellitus mellitus 00:13:29 l (disorder) (disorder) He rmann Active Problem 06/14/2017 [facility] Hyperchole Hyperchol Problem Active 2017-06-14 Memoria sterolemia esterolemi 00:13:29 l (disorder) a Ahsan n (disorder) Active Problem 06/14/2017 [facility] Hypertensi Hypertens Problem Active 2017-06-14 Memoria ve joaquín 00:13:29 l disorder, disorder, Herm alyx systemic systemic arterial arterial (disorder) (disorder) Active Problem 06/14/2017 [facility] Allergies, Adverse Reactions, Alerts Allergy Allergy Status Severity Reaction(s) Onset Inactive Treating Comm ents Source Name Type Date Date Clinician No Known DA Active [facility] [place] No Known DA Active U 2016-09 [facility]04 [place] [facility] Social History Smoking Status Start Date Stop Date Source Social History 2017-06-11 11:51:30 2017-06-11 11:51:[address] [facility] Medications Ordered Filled Start Stop Current Ordering Indication Dosage Frequency Signature Comments Components Source Medication Medication Date Date Medication? Clinician (SIG) Name Name sodium No 1,000 mL, Memori a chloride 06-11 Rate: 25 l 0.9% 1000 11:36: ml/hr, Ahsan n ml INJ 00 Infuse 1,000 mL over: 40 hr, Route: IV, Dosing Weight 109.545 kg, Total Volume: 1,000, Start date: 06/11/17 6:36:00 CDT, Duration: 30 day, Stop date: 07/11/17 6:35:00 CDT Polyethylen Yes 1 drp, Mayito isidro e Glycol 06-07 OPTH, BID, l 400 4 MG/ML 15:11: PRN for Her aguero / Propylene 00 dry eyes, glycol 3 # 30 ml, 0 MG/ML Refill(s) Ophthalmic Solution [Systane] empaglifloz Yes 25 mg = 1 M emoria in 25 MG 06-07 tab, PO, l Oral Tablet 15:11: QAM, 0 Jae alyx [Jardiance] 00 Refill(s) Non-Formula Yes Sinu-Pro Me moria ry Home 06-07 otc, l Medication 15:10: Refill(s) He rmann 00 0 QUEtiapine Yes 25 mg = 1 Me moria 25 mg oral 9-15 tab, PO, l tablet 15:09: Bedtime, # Diann nn 00 30 tab, 1 Refill(s) Zolpidem Yes 5 mg = 1 Memor ia tartrate 5 9-15 tab, PO, l MG Oral 15:09: Bedtime, Ahsan n Tablet 00 PRN for [Ambien] sleep, 0 Refill(s) tamsulosin Yes 0.4 mg = 1 M emoria 0.4 mg oral 9-15 cap, PO, l capsule 15:09: Daily, # Ahsan n 00 30 cap, 0 Refill(s) 24 HR Yes = 1 patch, Memori a rivastigmin 9-15 TOP, l e 0.396 15:09: Daily, Alfred MG/HR 00 apply to Transdermal skin, # 90 Patch patch, 1 Refill(s) Nature's Yes 1,000 mg = Mem oria Bounty Red 15 2 cap, PO, l Krill Oil 15:08: BID, 0 Ahsan n 500 mg oral 00 Refill(s) capsule pravastatin Yes 40 mg = 1 M emoria 40 mg oral 9-15 tab, PO, l tablet 15:08: Bedtime, # Diann nn 00 30 tab, 0 Refill(s) aspirin 81 Yes 81 mg = 1 Me moria mg tablet, 9-15 tab, PO, l enteric 15:07: Daily, # Ahsan n coated 00 90 tab, 3 Refill(s) duloxetine Yes 60 mg = 1 Me moria 60 MG 9-15 cap, PO, l Enteric 15:07: Daily, # Ahsan n Coated 00 30 cap, 0 Capsule Refill(s) [Cymbalta] Glyburide 5 Yes 1 tab, PO, Memoria MG / 9-15 BID-Meals, l Metformin 15:07: # 60 tab, Her aguero hydrochlori 00 0 de 500 MG Refill(s) Oral Tablet finasteride Yes 5 mg = 1 Me moria 5 mg oral 9-15 tab, PO, l tablet 15:07: Daily, # Maysel 00 30 tab, 0 Refill(s) Non-Formula Yes Curaphen Me moria ry Home 9-15 supplement l Medication 15:06: , Alfred 00 Refill(s) 0 clopidogrel Yes 75 mg = 1 M emoria 75 mg oral -15 tab, PO, l tablet 15:05: Daily, Alfred 00 last dose 06-04-2017 , # 30 tab, 0 Refill(s) Centrum 2017 Yes 1 tab, PO, Mayito isidro Silver 9-15 Daily, 0 l Men's 15:05: Refill(s) Maysel 00 carvedilol Yes 12.5 mg = Me moria 12.5 mg 9-15 1 tab, PO, l oral tablet 15:04: BID, # 180 Maysel 00 tab, 0 Refill(s) Vital Signs Vital Name Observation Time Observation Value Comments Source Respitory Rate 2017-06-11 14:00:00 Memori al Maysel Systolic (mm Hg) 2017-06-11 14:00:00 Mayito rial Maysel Diastolic (mm Hg) 2017-06-11 14:00:00 Mem orial Maysel Systolic (mm Hg) 2017-06-11 13:00:00 Mayito rial Alfred Diastolic (mm Hg) 2017-06-11 13:00:00 Mem orial Alfred Respitory Rate 2017-06-11 13:00:00 Memori al Alfred Systolic (mm Hg) 2017-06-11 12:45:00 Mayito rial Alfred Diastolic (mm Hg) 2017-06-11 12:45:00 Mem orial Maysel Respitory Rate 2017-06-11 12:45:00 Pilar al Maysel Heart Rate 2017-06-07 14:55:[address] [facility] Temperature Oral (F) 2017-06-07 14:55:[address] [facility] Height 2017-06-07 14:55:[address] [facility] BMI Calculated 2017-06-07 14:55:00 [facility] 2017-06-07 14:55:[address] [facility] Procedures Procedure Date / Time Performed Performing Clinician Bryson condon CABG x 3 - Coronary [facility] artery bypass grafts x 3 Encounters Start End Encounter Admission Attending Care Care Encounter Source Date/Time Date/Time Type Type Clinicians Facility Department ID 2017-06-14 2017-06-14 Outpatient RYANNE RYANNE [id number] Memoria 11:30:00 11:30:00 00 [facility] 2017-06-11 2017-06-11 Bedded [facility], [facility] [id number] Memoria 10:18:00 13:20:00 Outpatient r Maysel [address] [facility] 2017-06-11 2017-06-11 Outpatient Inamdar, MHPL MHPL [id number] 05:18:00 08:20:00 Juventino V 00 Results Test Description Test Time Test Comments Results Result Sourc e Comments - XR PELVIS 1/2 2018-12-08 Patient Name: VIEWS 12:21:00 KYLEIGH LY Unit No: [id number] EXAMS: CPT CODE: [id number] XR PELVIS 1/2 VIEWS 57064 AP view the pelvis COMMENT: COMPARISON: No prior exams available. Completed total is a hip arthroplasty. Prosthesis appears to be in good position. at 1221 Reported and signed by: Sharlene Sow MD CC: Lori Nazario MD Technologist: KECIA MENDEZ, RT(R) Transcribed D/ (1221) tLETTYGVG [facility] NAME: KYLEIGH LY [address] [facility] PHYS: Lori Shaw : 1950 AGE: 68 SEX: M [place], [place] [address] LOC: Y.507 A PHONE #: [phone] EXAM DATE: 12/04/2018 STATUS: DIS IN FAX #: [phone] RAD #: D/C DT 12/06/2018 PAGE 1 Signed Report Patient Name: KYLEIGH LY Unit No: [id number] EXAMS: CPT CODE: [id number] XR PELVIS 1/2 VIEWS 55991 (Continued) Orig Print D/T: S: 12/08/2018 (1224) [facility] NAME: KYLEIGH LY [address] [facility] Main PHYS: Lori Shaw : 1950 AGE: 68 SEX: M [place], [place] [address] LOC: Y.507 A PHONE #: [phone] EXAM DATE: 12/04/2018 STATUS: DIS IN FAX #: [phone] RAD #: D/C DT 12/06/2018 PAGE 2 Signed Report GLUBED 2018-12-06 05:41:00 Test Item Value Reference Range Interpretation Comme nts GLUBED (test code = GLUBED) 198 mg/dL 60-125 H [id number] 20:19:00 Test Item Value Reference Range Interpretation Comments GLUBED (test code = GLUBED) 278 mg/dL 60-125 H GLYCOSYLATED HEMOGLOBIN (HA1C)2018-12-05 19:15:00 Test Item Value Reference Range Interpretation Comments GLYCOSYLATED 7.5 % 4.8-5.9 H Any condition t hat shortens HEMOGLOBIN (HA1C) erythocyte survival or (test code = GLYHGB) decreas esmean erythrocyte age (e.g., shanique very from acute blood los s,hemolytic anemai) will fa lsely lower HGBA1c resultsr egardless of the method used . HGBA1c results frompat ients with HbSS, HbCC and HbSc must be interpreted wit hcaution given the patho logical processes, incl uding anemia,increase d red cell turnover, trans fusion requirements, t hatadversely impact HGBA1c a s a marker of long-term glycemiccontrol . Alternative for ms of testing such as fructosaminesho uld be considered for these patients.DONE A T: [facility] [address] [facility], [place], [place] [address] GLYCOSYLATED HEMOGLOBIN [id number] 16:50:00 Test Item Value Reference Range Interpretation Comments GLYCOSYLATED 7.5 % 4.8-5.9 H Any condition t hat HEMOGLOBIN (HA1C) shortens e rythocyte (test code = survival or dec reasesmean GLYHGB) erythrocyte age (e.g., recovery from a cute blood loss,hemolytic anemia) will falsely lo wer HGBA1c resultsregardle ss of the method used. HG BA1c results from nik regalado HbSS, HbCC, and HbSc must be interpreted with cautiongiven th e pathological pr ocesses, including anemia,increase d red cell turnover, trans fusion requirements, thatadversely i mpact HGBA1c as a mar ker of long-term glycemiccontrol . Alternative for ms of testing such as fructosaminesho uld be considered for these patients. MEAN BLOOD GLUCOSE 169 MG/DL 70-110 H (test code = MBG) [id number] 16:46:00 Test Item Value Reference Range Interpretation Comments GLUBED (test code = GLUBED) 313 mg/dL 60-125 H [id number] 11:46:00 Test Item Value Reference Range Interpretation Comments GLUBED (test code = GLUBED) 322 mg/dL 60-125 H BASIC METABOLIC [id number] 06:12:00 Test Item Value Reference Range Interpretation Comments SODIUM (test code = 138 mmol/L 136-145 N NA) POTASSIUM (test code = 4.3 mmol/L 3.5-5.1 N K) CHLORIDE (test code = 102.0 mmol/L 98-107 N CL) CARBON DIOXIDE (test 27.9 mmol/L 21-32 N code = CO2) GLUCOSE (test code = 275 mg/dL 70-110 H GLU) BLOOD UREA NITROGEN 30 mg/dL 7-18 H (test code = BUN) GLOMERULAR FILTRATION 75.0 >60 Unit o f measure: RATE (test code = GFR) mL/mi n/1.73 [id number] Range:Healthy Adults >90 mL/min/1.73 m2 For Chronic Kidney Disease: Stage II Mild Decrease i n GFR 60-90 Stage III Moderate Decrea se in GFR 30-59 St age IV Severe Decre ase in GFR 15-29 St age V Kidney Failur e <15 CREATININE (test code 0.99 mg/dL 0.55-1.30 N = CREAT) CALCIUM (test code = 7.8 mg/dL 8.2-10.1 L CA) HGB [id number] 05:50:00 Test Item Value Reference Range Interpretation Comments HEMOGLOBIN (test code = HGB) 10.3 g/dL 12-16 L HEMATOCRIT (test code = HCT) 29.8 % 37-47 L [id number] 05:31:00 Test Item Value Reference Range Interpretation Comments GLUBED (test code = GLUBED) 217 mg/dL 60-125 H [id number] 20:07:00 Test Item Value Reference Range Interpretation Comments GLUBED (test code = GLUBED) 297 mg/dL 60-125 H [id number] 16:55:00 Test Item Value Reference Range Interpretation Comments GLUBED (test code = GLUBED) 306 mg/dL 60-125 H - XR KNEE 1 OR 2 V [id number] 16:37:00 Patient Name: KYLEIGH LY Unit No: [id number] EXAMS: CPT CODE: [id number] XR KNEE 1 OR 2 V LT 06347WDYBNWQQMY: None IMAGES PROVIDED: AP view the pelvis and 5 views of the left femur FINDINGS: Acute transcervical left femoral neck fracture is demonstrated with 2 mm of superior displacement. Mild lefthip joint degenerative changes. Enthesophytes are seen about the greater tuberosity. Vascular calcifications are present. No acute findings of the left knee. IMPRESSION: Acute left femoral neck fracture. at 1637 Reported and signed by: Shine Trent M.D. CC: Bill Mitchell MD; Calin Bowie MD Technologist: RT. Daina(R) Transcribed D/ (5355) [facility] [facility] NAME: KYLEIGH LY[address] [facility] PHYS: Calin Ronquillo MD : 1950 AGE: 68 SEX: M [place], [place] [address] LOC: Y.507 A PHONE #: [phone] EXAM DATE: 12/04/2018 STATUS: ADM IN FAX #: [phone] RAD #: D/C DT PAGE 1 Signed Report Patient Name: KYLEIGH LY Unit No: [id number] EXAMS: CPT CODE: [id number] XR KNEE 1 OR 2 [place] [address] (Continued) Orig Print D/T: S: 12/04/2018 (5478) [facility] NAME: KYLEIGH LY [address] [facility] PHYS: Calin Ronquillo MD : 1950 AGE: 68 SEX: M [place], [place] [address] LOC: Y.507 A PHONE #: [phone] EXAM DATE: 12/04/2018 STATUS: ADM IN FAX #: [phone] RAD #: D/C DT PAGE 2 Signed Report- XR HIP W/PEL UNI 2+V [id number] 16:37:00 Patient Name: KYLEIGH LY Unit No: [id number] EXAMS: CPT CODE: [id number] XR HIP W/PEL UNI 2+V LT 82018 COMPARISON: None IMAGES PROVIDED: AP view the pelvis and 5 views of the left femur FINDINGS: Acute transcervical left femoral neck fracture is demonstrated with 2 mm of superior displacement. Mild left hip joint degenerative changes. Enthesophytes are seen about the greater tuberosity. Vascular calcifications are present. No acute findings of the left knee. IMPRESSION: Acute left femoral neck fracture. at 1637 Reported and signed by: Shine Trent M.D. CC: Bill Mitchell MD; Calin Bowie MD Technologist: RT Daina.(R) Transcribed D/ (4267) [facility] NAME: KYLEIGH LY [address] [facility] Main PHYS: Calin Ronquillo MD : 1950 AGE: 68 SEX: M [place] [address] LOC: Y.507 A PHONE #: [phone] EXAM DATE: 12/04/2018 STATUS: ADM IN FAX #: [phone] RAD #: D/C DT PAGE 1 Signed Report Patient Name: KYLEIGH LY Unit No: [id number] EXAMS: CPT CODE: [id number] XR HIP W/PEL UNI 2+[place] [address] (Continued) Orig Print D/T: S: 12/04/2018 (1640) [facility] NAME: KYLEIGH LY [address] [facility] PHYS: Calin Ronquillo MD : 1950 AGE: 68 SEX: M [place], [place] [address] LOC: Y.507 A PHONE #: [phone] EXAM DATE: 12/04/2018 STATUS: ADM IN FAX #: [phone] RAD #: D/C DT PAGE 2 Signed [id number] 12:39:00 Test Item Value Reference Range Interpretation Comments GLUBED (test code = GLUBED) 276 mg/dL 60-125 H COMPREHENSIVE METABOLIC [id number] 06:53:00 Test Item Value Reference Range Interpretation Comments SODIUM (test code = NA) 138 mmol/L 136-145 N POTASSIUM (test code = 3.9 mmol/L 3.5-5.1 N K) CHLORIDE (test code = 97.0 mmol/L 98-107 L CL) CARBON DIOXIDE (test 23.3 mmol/L 21-32 N code = CO2) GLUCOSE (test code = 228 mg/dL 70-110 H GLU) BLOOD UREA NITROGEN 21 mg/dL 7-18 H (test code = BUN) GLOMERULAR FILTRATION 98.7 >60 Unit o f measure: RATE (test code = GFR) mL/mi n/1.73 [id number] Range:Healthy Adults >90 mL/min/1.73 m2 For Chronic Kidney Disease: Stage II Mild Decrease i n GFR 60-90 Stage III Moderate Decrea se in GFR 30-59 St age IV Severe Decre ase in GFR 15-29 St age V Kidney Failur e <15 CREATININE (test code = 0.78 mg/dL 0.55-1.30 N CREAT) TOTAL PROTEIN (test 8.1 g/dL 6.4-8.2 N code = PROT) ALBUMIN (test code = 4.3 g/dL 3.4-5.0 N ALB) GLOBULIN (test code = 3.8 g/dL 2.2-4.2 N GLOB) ALBUMIN/GLOBULIN RATIO 1.1 0.7-2.0 N (test code = A/G) CALCIUM (test code = 9.6 mg/dL 8.2-10.1 N CA) BILIRUBIN TOTAL (test 0.73 mg/dL 0.2-1.00 N code = BILT) SGOT/AST (test code = 28.0 U/L 15-37 N AST) SGPT/ALT (test code = 39.0 U/L 12-78 N Please note new ALT) normal range. ALKALINE PHOSPHATASE 66 U/L 46-116 N TOTAL (test code = ALKP) PROTHROMBIN [id number] 06:41:00 Test Item Value Reference Range Interpretation Comments PROTHROMBIN TIME 11.8 secs 10.1-12.5 N PATIENT (test code = PTP) INTERNATIONAL NORMAL 1.04 <2.0 RECOMME NDED THERAPEUTIC RATIO (test code = RANGE FOR ORAL INR) ANTICOAGULANTTR EATMENT: CONDITION INRPr ophylaxis of venous throm bosis in 2.0 - 3.0 high- risk medical or surg ical patientsTreatme nt of venous thrombos is 2.0 - 3.0Prevention o f embolism 2.0 - 3.0Prevention o f recurrent embol ism, or 3.0 - 4.5 patie nts with mechanical pros thetic intravascular v rayo IS PATIENT ON ANTICOAGULANTS ? YLIST ANTICOAGULANT/ANTI PLT MEDICATION : Plavix (Anti-PLT)Has Lab been notified if Patient is on Heparin Drip? YESAddn't Lab Tests to be ordered if Y. NIf Yes, order CBC, OCCULT BLOOD, PT every other day N THROMBOPLASTIN TIME [id number] 06:41:00 Test Item Value Reference Range Interpretation Comments PTT ACTIVATED (test code = APTT) 31.1 secs 24.9-37.0 N IS PATIENT ON ANTICOAGULANTS ? YLIST ANTICOAGULANT/ANTI PLT MEDICATION : Plavix (Anti-PLT)Has Lab been notified if Patient is on Heparin Drip? YESAddn't Lab Tests to be ordered if Y. NIf Yes, order CBC, OCCULT BLOOD, PT every other day N [id number] 05:53:00 Test Item Value Reference Range Interpretation Comments GLUBED (test code = GLUBED) 221 mg/dL 60-125 H CBC W/AUTO [id number] 05:41:00 Test Item Value Reference Range Interpretation Comments WHITE BLOOD CELL (test code = WBC) 10.3 K/mm3 5.7-10.5 N RED BLOOD CELL (test code = RBC) 4.39 M/mm3 4.2-5.4 N HEMOGLOBIN (test code = HGB) 14.1 g/dL 12-16 N HEMATOCRIT (test code = HCT) 40.7 % 37-47 N MEAN CELL VOLUME (test code = MCV) 93 fL 80-98 N MEAN CELL HGB (test code = MCH) 32.1 pg 27-34 N MEAN CELL HGB CONCENTRATION (test 34.6 g/dL 30.8-34.1 H code = MCHC) RED CELL DISTRIBUTION WIDTH (test 11.9 % 11-16 N code = RDW) PLT (test code = PLT) 163 K/mm3 130-400 N MEAN PLATELET VOLUME (test code = 11.0 fL 8.9-12.1 N MPV) NEUTROPHIL % (test code = NT%) 81.5 % 45-70 H LYMPHOCYTE % (test code = LY%) 10.5 % 20-40 L MONOCYTE % (test code = MO%) 6.2 % 3-10 N EOSINOPHIL % (test code = EO%) 0.1 % 1-5 L BASOPHIL % (test code = BA%) 0.3 % 0.0-1.1 N NEUTROPHIL # (test code = NT#) 8.42 K/mm3 2.00-7.50 H LYMPHOCYTE # (test code = LY#) 1.08 K/mm3 1.50-4.00 L MONOCYTE # (test code = MO#) 0.64 K/mm3 0.2-0.8 N EOSINOPHIL # (test code = EO#) 0.01 K/mm3 0.04-0.4 L BASOPHIL # (test code = BA#) 0.03 K/mm3 0.02-0.10 N MANUAL DIFF REQUIRED (test code = NO MANUAL DIFF MDIFF) NUCLEATED RED BLOOD CELL (test 0 % 0-0 N code = NRBC) [id number] 12:53:00 Test Item Value Reference Range Interpretation Comments AGAP (test code = AGAP) 8.5 10.0-20.[address] [facility] H[id number] 12:53:00 Test Item Value Reference Range Interpretation Comments B/C Ratio (test code = B/C Ratio) 23 6-[address] [facility] [address] Ho[id number] 12:53:00 Test Item Value Reference Range Interpretation Comments A/G Ratio (test code = A/G Ratio) 1.0 0.7-1.[address] [facility] H[id number] 12:53:00 Test Item Value Reference Range Interpretation Comments Globulin (test code = Globulin) 3.5 2.7-4.[address] [facility] [address] [facility] Hos[id number] 12:53:00 Test Item Value Reference Range Interpretation Comments eGFR (test code = eGFR) [address] [facility] H[id number] 12:53:00 Test Item Value Reference Range Interpretation Comments Bili Total (test code = Bili Total) 0.5 0.2-1.[address] [facility] [address] [facility] Ho[id number] 12:53:00 Test Item Value Reference Range Interpretation Comments ALANINE AMINOTRANSFERASE 28 See_Comment [A utomated message] (test code = ALANINE The sys tem which AMINOTRANSFERASE) generated this result transmitted ref erence range: <=65. Th e reference range was not used to int erpret this result as normal/abnormal . [facility] H[id number] 12:53:00 Test Item Value Reference Range Interpretation Comments Albumin Lvl (test code = Albumin Lvl) 3.4 3.5-5.[address] [facility] H[id number] 12:53:00 Test Item Value Reference Range Interpretation Comments Alk Phos (test code = Alk Phos) 68 39-[address] [facility] [address] [facility] Hospi[id number] 12:53:00 Test Item Value Reference Range Interpretation Comments ASPARTATE TRANSAMINASE 20 See_Comment [Aut omated message] (test code = ASPARTATE The s ystem which TRANSAMINASE) generated this result transmitted ref erence range: <=37. Th e reference range was not used to interpr et this result as normal/abnormal . [facility] Ho[id number] 12:53:00 Test Item Value Reference Range Interpretation Comments Calcium Lvl (test code = Calcium Lvl) 8.7 8.5-10.[address] [facility] [address] [facility] Hos[id number] 12:53:00 Test Item Value Reference Range Interpretation Comments CO2 (test code = CO2) 30 24-[address] [facility] [facility] Hospi[id number] 12:53:00 Test Item Value Reference Range Interpretation Comments Total Protein (test code = Total 6.9 6.4-8.4 Protein) [facility] Hos[id number] 12:53:00 Test Item Value Reference Range Interpretation Comments Chloride Lvl (test code = Chloride Lvl) 106 95-[address] [facility] [address] [facility] Hos[id number] 12:53:00 Test Item Value Reference Range Interpretation Comments Potassium Lvl (test code = Potassium 4.5 3.5-5.1 Lvl) [facility] Hospital[id number] 12:53:00 Test Item Value Reference Range Interpretation Comments Sodium Lvl (test code = Sodium Lvl) 140 135-[address] [facility] [facility] H[id number] 12:53:00 Test Item Value Reference Range Interpretation Comments Creatinine Lvl (test code = Creatinine 0.77 0.50-1.40 Lvl) [facility] HospitalLehwopaGPBBEZXVTBWK3598-90-57 12:53:00 Test Item Value Reference Range Interpretation Comments BUN (test code = BUN) 18 7-[address] [facility] [facility] Hospi[id number] 12:53:00 Test Item Value Reference Range Interpretation Comments Glucose Lvl (test code = Glucose Lvl) 121 70-99 [facility] HospitalOvnjmzdKMZCNXEPEQ7538-47-94 12:53:00 Test Item Value Reference Range Interpretation Comments MCH (test code = MCH) 33.2 pg 27.0-31.0 [facility] HospitalTnzdweeGQTJLKLQPF6008-34-56 12:53:00 Test Item Value Reference Range Interpretation Comments MCHC (test code = MCHC) 34.9 32.0-36.0 [facility] HospitalKihlknsRGRIVXGICQ9222-56-61 12:53:00 Test Item Value Reference Range Interpretation Comments Platelet (test code = Platelet) 172 133-450 [facility] HospitalJsoqccqOUUBQXCZJG4064-83-89 12:53:00 Test Item Value Reference Range Interpretation Comments RDW (test code = RDW) 12.8 11.5-14.5 [facility] HospitalIyldynsRWKUHYVPJB0725-78-49 12:53:00 Test Item Value Reference Range Interpretation Comments MPV (test code = MPV) 7.9 7.4-10.4 [facility] HospitalGsmfsuxJPVFXIYPZR7615-72-49 12:53:00 Test Item Value Reference Range Interpretation Comments RBC X 10x6 (test code = RBC X 10x6) 4.10 4.70-6.10 [facility] HospitalNsmvvcgMFBBRGCUGJ7698-79-51 12:53:00 Test Item Value Reference Range Interpretation Comments Hgb (test code = Hgb) 13.6 14.0-18.0 [facility] Hos[id number] 12:53:00 Test Item Value Reference Range Interpretation Comments WBC X 10x3 (test code = WBC X 10x3) 5.7 3.7-10.4 [facility] HospitalCekcgdmXPAHEZPRDU0759-20-18 12:53:00 Test Item Value Reference Range Interpretation Comments Hct (test code = Hct) 39.1 42.0-54.0 [facility] HospitalCwtgtrzYPZCPMOIFF1048-38-50 12:53:00 Test Item Value Reference Range Interpretation Comments MCV (test code = MCV) 95.3 80.0-94.0 [id number] 12:53:00 Test Item Value Reference Range Interpretation Comments Lymphocytes # (test code = Lymphocytes 1.7 1.0-5.5 #) [facility] H[id number] 12:53:00 Test Item Value Reference Range Interpretation Comments Segs-Bands # (test code = Segs-Bands #) 3.3 1.5-8.1 [facility] H[id number] 12:53:00 Test Item Value Reference Range Interpretation Comments Lymphocytes (test code = Lymphocytes) 29.3 20.0-40.0 [facility] Hospit[id number] 12:53:00 Test Item Value Reference Range Interpretation Comments Monocytes (test code = Monocytes) 9.8 2.0-12.0 [facility] H[id number] 12:53:00 Test Item Value Reference Range Interpretation Comments Eosinophils (test code = 1.9 See_Comment [A utomated message] The Eosinophils) system which ge nerated this result tra nsmitted reference range : <=4.0. The reference r sherman was not used to int erpret this result as normal/abnormal . [facility] H[id number] 12:53:00 Test Item Value Reference Range Interpretation Comments Eosinophils # (test code 0.1 See_Comment [A utomated message] The = Eosinophils #) system whic h generated this result tra nsmitted reference range : <=0.5. The reference r sherman was not used to int erpret this result as normal/abnormal . [facility] H[id number] 12:53:00 Test Item Value Reference Range Interpretation Comments Monocytes # (test code 0.6 See_Comment [Aut omated message] The = Monocytes #) system which generated this result tra nsmitted reference range : <=0.8. The reference r sherman was not used to int erpret this result as normal/abnormal . [facility] H[id number] 12:53:00 Test Item Value Reference Range Interpretation Comments Segs (test code = Segs) 58.5 45.0-75.[address] [facility] Hospit[id number] 12:53:00 Test Item Value Reference Range Interpretation Comments Basophils (test code = 0.5 See_Comment [Aut omated message] The Basophils) system which ge nerated this result tra nsmitted reference range : <=1.0. The reference r sherman was not used to int erpret this result as normal/abnormal . [facility] HospitalTUMOR [id number] 12:53:00 Test Item Value Reference Range Interpretation Comments CEA (test code = CEA) 2.9 See_Comment [Auto mated message] The system which ge nerated this result transmit eb reference range : <=3.0. The reference range was not used to interpr et this result as bob l/abnormal. [facility]2017-09-19 11:37:00 Test Item Value Reference Range Interpretation Comments Iron (test code = Iron) 90 45-160 [facility]2017-09-19 11:37:00 Test Item Value Reference Range Interpretation Comments % Satur Fe (test code = % Satur Fe) 26 12-57 [facility]2017-09-19 11:37:00 Test Item Value Reference Range Interpretation Comments UIBC (test code = UIBC) 252 110-370 [facility]2017-09-19 11:37:00 Test Item Value Reference Range Interpretation Comments TIBC (test code = TIBC) 342 228-428 [facility]2017-09-19 11:37:00 Test Item Value Reference Range Interpretation Comments BUN (test code = BUN) 17 7-22 [facility]2017-09-19 11:37:00 Test Item Value Reference Range Interpretation Comments Creatinine Lvl (test code = Creatinine 0.75 0.50-1.40 Lvl) [facility]2017-09-19 11:37:00 Test Item Value Reference Range Interpretation Comments Potassium Lvl (test code = Potassium 4.2 3.5-5.1 Lvl) [facility]2017-09-19 11:37:00 Test Item Value Reference Range Interpretation Comments Sodium Lvl (test code = Sodium Lvl) 139 135-145 [facility]2017-09-19 11:37:00 Test Item Value Reference Range Interpretation Comments Glucose Lvl (test code = Glucose Lvl) 128 70-99 [facility]2017-09-19 11:37:00 Test Item Value Reference Range Interpretation Comments AGAP (test code = AGAP) 12.2 10.0-20.0 [facility]2017-09-19 11:37:00 Test Item Value Reference Range Interpretation Comments Calcium Lvl (test code = Calcium Lvl) 8.9 8.5-10.5 [facility]2017-09-19 11:37:00 Test Item Value Reference Range Interpretation Comments eGFR (test code = eGFR) 95 [facility]2017-09-19 11:37:00 Test Item Value Reference Range Interpretation Comments CO2 (test code = CO2) 27 24-32 [facility] [id number] 11:37:00 Test Item Value Reference Range Interpretation Comments Chloride Lvl (test code = Chloride Lvl) 104 95-109 [facility] [id number] 11:37:00 Test Item Value Reference Range Interpretation Comments Hgb A1C (test code = Hgb A1C) 6.[address] [facility]
[2022-06-07] MEDS ORDERED: NITROGLYCERIN 0.4 MG/TAB SL ONE (21:54)
--- NOTE | 2022-06-07 21:55 | ER ---
Nurse's Notes [facility] Name: Ehsan Emmanuel Age: 71 yrs Sex: Male : 1950 Arrival Date: 06/07/2022 Time: 20:45 Bed 26 Private MD: Diagnosis: Chest pain, unspecified Presentation: 06/07 20:48 Chief complaint: Patient states: "I am having a heavy chest, and legs are weak. I am tw5 feeling a little better since coming here.". 20:48 Method Of Arrival: Wheelchair tw5 20:51 Ebola Screen: Patient negative for fever greater than or equal to 101.5 degrees tw5 Fahrenheit, and additional compatible Ebola Virus Disease symptoms Patient denies exposure to infectious person. Patient denies travel to an Ebola-affected area in the 21 days before illness onset. Initial Sepsis Screen:. Risk Assessment: Do you want to hurt yourself or someone else? Patient reports no desire to harm self or others. Onset of symptoms was June 04, 2022. 20:51 Acuity: IZABELLA 2 tw5 20:56 Initial Sepsis Screen: Does the patient have a suspected source of infection? No. kb3 Patient's initial sepsis screen is negative. 23:08 Coronavirus screen: Vaccine status: Patient reports receiving the 2nd dose of the covid kb3 vaccine. Client denies travel out of the [place] in the last 14 days. Triage Assessment: 21:00 General: Appears in no apparent distress. comfortable, Behavior is calm, cooperative, kb3 quiet. 21:00 Pain: Denies pain. Cardiovascular: Reports chest pain, lightheadedness, shortness of kb3 breath, Heart tones present Capillary refill < 3 seconds Patient's skin is warm and dry. Pulses are all present. Rhythm is atrial fibrillation. Respiratory: No deficits noted. GI: No deficits noted. : No deficits noted. Historical: - Allergies: 23:12 No Known Allergies; kb3 - Home Meds: 23:12 AREDS [Active]; aripiprazole 2 mg oral tab 1 tab once daily [Active]; atorvastatin 40 kb3 mg oral tab 1 tab once daily [Active]; carvedilol 3.125 mg oral tab 1 tab once daily [Active]; Curaphen [Active]; Curcumin [Active]; duloxetine 60 mg oral CDRS 1 cap twice daily [Active]; Exelon Patch [Active]; Lantus U-100 Insulin 100 unit/mL Sub-Q crtg 60 unit nightly [Active]; losartan 50 mg oral tab 1 tab once daily [Active]; Guille Red [place]-Krill Oil [Active]; Xarelto 20 mg oral tab 1 tab once daily [Active]; - PMHx: 23:12 Atrial fibrillation; Hypertensive disorder; Hypercholesterolemia; IDDM; Coronary kb3 atherosclerosis; Depressive disorder; - PSHx: 23:12 Coronary artery bypass graft; kb3 - Immunization history:: Adult Immunizations up to date, Client reports receiving the 2nd dose of the Covid vaccine, Last tetanus immunization: unknown. - Social history:: Smoking status: Patient denies any tobacco usage or history of. - Family history:: not pertinent. - Hospitalizations: : No recent hospitalization is reported. Screenin:00 Abuse screen: Denies threats or abuse. Denies injuries from another. Nutritional kb3 screening: No deficits noted. Tuberculosis screening: No symptoms or risk factors identified. Fall Risk None identified. Assessment: 21:00 General: See triage note. kb3 21:00 Pain: Denies pain. kb3 23:56 General: Report called to Travis ROCHA . kb3 Vital Signs: 20:56 BP 129 / 69; Pulse 68; Resp 18; Temp 98; Pulse Ox 95% ; Weight 113.4 kg; Height 6 ft. 0 kb3 in. (182.88 cm); Pain 0/10; 21:30 BP 147 / 70; Pulse 65; Resp 20; Pulse Ox 98% ; kb3 22:00 BP 163 / 82; Pulse 70; Resp 18; Pulse Ox 98% ; kb3 22:30 BP 160 / 84; Pulse 73; Resp 18; Pulse Ox 98% ; kb3 23:00 BP 129 / 90; Pulse 76; Resp 20; Pulse Ox 100% ; kb3 23:30 BP 174 / 95; Pulse 78; Resp 20; Pulse Ox 97% ; kb3 06/08 01:18 BP 188 / 97; Pulse 74; Resp 18; Pulse Ox 97% on R/A; tw5 06/07 20:56 Body Mass Index 33.91 (113.40 kg, 182.88 cm) kb3 ED Course: 06/07 20:45 Patient arrived in ED. jj6 20:46 Kobi Russo MD is Attending Physician. rn 20:51 Triage completed. tw5 21:00 Arm band placed on right wrist. EKG completed in triage. Results shown to MD. kb3 21:00 Patient has correct armband on for positive identification. Placed in gown. Bed in low kb3 position. Call light in reach. Side rails up X2. Adult w/ patient. Client placed on continuous cardiac and pulse oximetry monitoring. NIBP monitoring applied. groundwater monitoring technician on. Warm blanket given. Pillow given. 21:01 EKG done, by ED staff, reviewed by Kobi Russo MD. tw5 21:38 Kristine Nunez, RN is Primary Nurse. kb3 21:54 Esteban Melendez MD is Hospitalizing Provider. rn 22:00 No provider procedures requiring assistance completed. Inserted saline lock: 20 gauge kb3 in right hand, using aseptic technique. Blood collected. 22:00 Patient maintains SpO2 saturation greater than 95% on room air. kb3 22:49 XRAY Chest (1 view) In Process Unspecified. EDMS 06/08 01:18 Patient admitted, IV remains in place. tw5 Administered Medications: 06/07 21:45 Drug: Nitroglycerin 0.4 mg Route: Sublingual; kb3 22:00 Follow up: Response: No adverse reaction kb3 06/08 01:17 Drug: Melatonin 5 mg Route: PO; tw5 01:18 Follow up: Response: No adverse reaction tw5 Medication: 06/07 21:00 VIS not applicable for this client. kb3 Outcome: 21:54 Decision to Hospitalize by Provider. rn 06/08 00:00 Admitted to Med/surg accompanied by tech, via wheelchair, Report called to Travis ROCHA kb3 Condition: stable 01:49 Patient left the ED. tw5 Signatures: Dispatcher [employer] EDME Kobi Russo MD MD rn Wood, Tiffany tw5 Christy Ross jj6 Kristine Nunez, RN RN kb3 Corrections: (The following items were deleted from the chart) 06/07 23:53 22:00 Inserted saline lock: 20 gauge in right antecubital area, using aseptic kb3 technique. Blood collected. kb3
--- NOTE | 2022-06-07 21:55 | EDPHYS ---
Physician Documentation [facility] Name: Ehsan Emmanuel Age: 71 yrs Sex: Male : 1950 Arrival Date: 06/07/2022 Time: 20:45 Bed 26 Private MD: ED Physician Kobi Russo HPI: 06/07 21:27 This 71 yrs old Male presents to ER via Wheelchair with complaints of Chest Pain. rn 21:27 The patient or guardian reports chest pain that is located primarily in the substernal rn area. Onset: 3 day(s) ago. The pain does not radiate. Associated signs and symptoms: Pertinent negatives: abdominal pain, diaphoresis, shortness of breath, syncope, vomiting. The chest pain is described as a heaviness. Duration: The patient or guardian reports multiple episodes, that are intermittent. Modifying factors: The symptoms are alleviated by nothing. the symptoms are aggravated by nothing. Severity of pain: At its worst the pain was moderate in the emergency department the pain has improved. The patient has experienced similar episodes in the past. The patient has not recently seen a physician. Pt reports chest heaviness for last 3 days, intermittent, + previous cardiac bypass in 2002, evaluated annually but no recent cardiac cath. No fever/cough/sob/abd pain/vomiting/diarrhea. REports bilateral lower extremity heaviness as well. States right leg always larger than left leg.. Historical: - Allergies: 23:12 No Known Allergies; kb3 - Home Meds: 23:12 AREDS [Active]; aripiprazole 2 mg oral tab 1 tab once daily [Active]; atorvastatin 40 kb3 mg oral tab 1 tab once daily [Active]; carvedilol 3.125 mg oral tab 1 tab once daily [Active]; Curaphen [Active]; Curcumin [Active]; duloxetine 60 mg oral CDRS 1 cap twice daily [Active]; Exelon Patch [Active]; Lantus U-100 Insulin 100 unit/mL Sub-Q crtg 60 unit nightly [Active]; losartan 50 mg oral tab 1 tab once daily [Active]; Guille Red [place]-Krill Oil [Active]; Xarelto 20 mg oral tab 1 tab once daily [Active]; - PMHx: 23:12 Atrial fibrillation; Hypertensive disorder; Hypercholesterolemia; IDDM; Coronary kb3 atherosclerosis; Depressive disorder; - PSHx: 23:12 Coronary artery bypass graft; kb3 - Immunization history:: Adult Immunizations up to date, Client reports receiving the 2nd dose of the Covid vaccine, Last tetanus immunization: unknown. - Social history:: Smoking status: Patient denies any tobacco usage or history of. - Family history:: not pertinent. - Hospitalizations: : No recent hospitalization is reported. ROS: 21:27 Constitutional: Negative for fever, chills, and weight loss, Eyes: Negative for injury, rn pain, redness, and discharge, Neck: Negative for injury, pain, and swelling, Cardiovascular: Negative for palpitations, and edema, Respiratory: Negative for shortness of breath, cough, wheezing, and pleuritic chest pain, Abdomen/GI: Negative for abdominal pain, nausea, vomiting, diarrhea, and constipation, Back: Negative for injury and pain, MS/Extremity: Negative for injury and deformity, Skin: Negative for injury, rash, and discoloration, Neuro: Negative for headache, numbness, tingling, and seizure. Exam: 21:06 ECG was reviewed by the Attending Physician. rn 21:27 Constitutional: This is a well developed, well nourished patient who is awake, alert, rn and in no acute distress. Head/Face: Normocephalic, atraumatic. Eyes: Periorbital areas with no swelling, redness, or edema. Cardiovascular: Irregularly irregular rhythm, regular rate. No pulse deficits. Respiratory: No increased work of breathing, no retractions or nasal flaring. Abdomen/GI: Soft, non-tender Skin: Warm, dry MS/ Extremity: Pulses equal, no cyanosis. Neuro: Awake and alert, GCS 15, 5/5 strength in all extremities. Vital Signs: 20:56 BP 129 / 69; Pulse 68; Resp 18; Temp 98; Pulse Ox 95% ; Weight 113.4 kg; Height 6 ft. 0 kb3 in. (182.88 cm); Pain 0/10; 21:30 BP 147 / 70; Pulse 65; Resp 20; Pulse Ox 98% ; kb3 22:00 BP 163 / 82; Pulse 70; Resp 18; Pulse Ox 98% ; kb3 22:30 BP 160 / 84; Pulse 73; Resp 18; Pulse Ox 98% ; kb3 23:00 BP 129 / 90; Pulse 76; Resp 20; Pulse Ox 100% ; 3 23:30 BP 174 / 95; Pulse 78; Resp 20; Pulse Ox 97% ; 3 06/08 01:18 BP 188 / 97; Pulse 74; Resp 18; Pulse Ox 97% on R/A; tw5 06/07 20:56 Body Mass Index 33.91 (113.40 kg, 182.88 cm) [facility] MDM: 06/07 20:46 Patient medically screened. rn 21:53 Differential diagnosis: acute myocardial infarction, acute pericarditis, coronary rn artery disease congestive heart failure pleurisy, pneumothorax, stable angina, unstable angina. Data reviewed: vital signs, nurses notes, EKG, radiologic studies, plain films, and as a result, I will admit patient. Counseling: I had a detailed discussion with the patient and/or guardian regarding: the historical points, exam findings, and any diagnostic results supporting the discharge/admit diagnosis, lab results, radiology results, the need for further work-up and treatment in the hospital. Response to treatment: the patient's symptoms have mildly improved after treatment. Admission orders: after a detailed discussion of the patient's condition and case, the admit orders are written by me. 06/07 20:54 Order name: Basic Metabolic Panel; Complete Time: 22:41 06/07 20:54 Order name: CBC with Diff; Complete Time: 22: 06/07 20:54 Order name: NT PRO-BNP; Complete Time: 22: 06/07 20:54 Order name: PT-INR 06/07 20:54 Order name: Troponin HS; Complete Time: 22:41 06/07 20:54 Order name: SARS RAPID; Complete Time: 22:31 06/07 20:54 Order name: XRAY Chest (1 view); Complete Time: 23:03 06/07 20:54 Order name: EKG; Complete Time: 21:56 06/07 20:54 Order name: Cardiac monitoring; Complete Time: 21:40 06/07 20:54 Order name: EKG - Nurse/Tech; Complete Time: 21:40 06/07 20:54 Order name: IV Saline Lock; Complete Time: 22: 06/07 20:54 Order name: Labs collected and sent; Complete Time: 22: 06/07 20:54 Order name: O2 Per Protocol; Complete Time: 22:01 rn 06/07 20:54 Order name: O2 Sat Monitoring; Complete Time: 22:01 rn EC:06 Rate is 84 beats/min. Rhythm is irregularly irregular. QRS Lee is Normal. AR interval rn is normal. QRS interval is normal. QT interval is prolonged at 484 msec. No Q waves. T waves are Normal. No ST changes noted. Clinical impression: Atrial Fibrillation. Interpreted by me. Reviewed by me. Administered Medications: 21:45 Drug: Nitroglycerin 0.4 mg Route: Sublingual; kb3 22:00 Follow up: Response: No adverse reaction kb3 06/08 01:17 Drug: Melatonin 5 mg Route: PO; tw5 01:18 Follow up: Response: No adverse reaction tw5 Disposition Summary: 06/07/22 21:54 Hospitalization Ordered Hospitalization Status: Observation rn Provider: Esteban Melendez rn Location: Telemetry/MedSurg (observation) rn Condition: Stable rn Problem: new rn Symptoms: have improved rn Bed/Room Type: Standard rn Room Assignment: 421(06/08/22 00:15) Diagnosis - Chest pain, unspecified rn Forms: - Medication Reconciliation Form rn - SBAR form rn Signatures: Dispatcher [employer] EDMS Kobi Russo MD MD rn Attema, Lee, FASHION SUPERVISOR-C FASHION SUPERVISOR-Cla1 Cookie Silverman RN Rosy Asher tw5 Kristine Nunez RN RN kb3 Corrections: (The following items were deleted from the chart) 00:15 06/07 21:54 rn
[2022-06-07 22:11] LABS: Absolute Lymphocytes (CBC) 2.5 K/uL (0.7-4.9); Lymphocytes % 40.8 % (15.3-44.8); MCV 94.3 fL (80-100); MPV 8.1 fL (7.6-11.3); RBC Red Blood Cell Count 4.34 M/uL (4.33-5.43)
[2022-06-07 22:26] LABS: SARS-CoV-2 Antigen Rapid Res Negative (Negative)
[2022-06-07 22:31] LABS: Potassium 3.8 mmol/L (3.5-5.1); Troponin High Sensitivity 26.4 pg/mL (<58.9)
--- NOTE | 2022-06-07 22:58 | RAD REPORT ---
EXAM DESCRIPTION: RAD - Chest Single View - 06/07/2022 10:47 pm CLINICAL HISTORY: CHEST PAIN Chest pain. COMPARISON: Chest Single View dated 08/12/2019; CHEST PA AND LAT 2 VIEW dated 01/31/2012 FINDINGS: Portable technique limits examination quality. Mild pulmonary edema is suspected. Chronic elevation right hemidiaphragm is noted. The heart is moder ately enlarged. No displaced fractures.Sternotomy wires. IMPRESSION: Mild to moderate CHF.
--- NOTE | 2022-06-08 00:45 | P.HP ---
Certification for Inpatient Patient admitted to: Observation With expected LOS: <2 Midnights Patient will require the following post-hospital care: None Practitioner: I am a practitioner with admitting privileges, knowledge of patient current condition, hospital course, and medical plan of care. Services: Services provided to patient in accordance with Admission requirements found in Title 42 Section 412.3 of the Code of Federal Regulations <Ryan Parks - Last Filed: 06/08/22 00:42> Patient History Date of Service: 06/08/22 Reason for admission: Chest pain History of Present Illness: 71-year-old male with history of atrial fibrillation on chronic anticoagulation, coronary artery disease status post CABG in 2002, diabetes mellitus type 2insulin-dependent, hypertension, hyperlipidemia presents the emergency department for chest pain. He reports last 3 to 4 days he has had what is described as a heaviness in his chest with exertion that has been resolved with rest. Last stress test a little less than a year ago reported to be normal at that time, has not had a heart catheterization in "many years". He was evaluated in the emergency department his labs were significant for mildly elevated BNP 594 glucose of 200 initial high-sensitivity troponin 26.4 EKG without STEMI criteria present chest x-ray revealed mild to moderate CHF, mild pulmonary edema suspected and moderately enlarged heart. ED provider wishes to admit her under observation for ACS rule out. - Past Medical/Surgical History Diabetic: Yes -: A. fib on chronic anticoagulation -: CAD status post CABG -: Diabetes mellitus type 2insulin-dependent -: Hypertension -: Hyperlipidemia -: CABG 2002 Psychosocial/ Personal History: Patient is retired lives at home with his - Family History Mother -: Heart disease Father -: Cancer - Social History Smoking Status: Never smoker Alcohol use: No CD- Drugs: No Caffeine use: No Place of Residence: Home <Ryan Parks - Last Filed: 06/08/22 00:42> Date of Service: 06/08/22 <Esteban Melendez - Last Filed: 06/08/22 16:29> Allergies No Known Allergies Allergy (Verified 07/20/16 10:17) Home Medications: Duloxetine HCl [Cymbalta] 60 mg PO BID 05/31/16 Krill/Om-3/Dha/Epa/Phospho/Ast [Megared Harrold-3 Krill 300 mg] 800 mg PO [id number] 05/31/16 Curcumin 500 mg PO BID 08/13/19 ARIPiprazole [Aripiprazole] 2 mg PO [id number] 06/08/22 Areds 2 1 drop EACH EYE BID 06/08/22 Atorvastatin Calcium [Lipitor] 40 mg PO BEDTIME 06/08/22 Carvedilol [Coreg] 3.125 mg PO [id number] 06/08/22 Curaphen 1 cap PO [id number] 06/08/22 Insulin Glargine,Hum.rec.anlog [Lantus] 60 unit SQ BEDTIME 06/08/22 Losartan Potassium [Cozaar] 50 mg PO BEDTIME 06/08/22 Rivaroxaban [Xarelto] 20 mg PO DAILY AT SUPPER 06/08/22 Rivastigmine Patch [Exelon 9.5 mg Patch] 9.5 mg TOP BEDTIME 06/08/22 Review of Systems 10-point ROS is otherwise unremarkable Cardiovascular: Chest Pain, As per HPI <Ryan Parks - Last Filed: 06/08/22 00:42> Physical Examination - Physical Exam General: Alert, In no apparent distress, Oriented x3 HEENT: Atraumatic, PERRLA, Mucous membr. moist/pink, EOMI, Sclerae nonicteric Neck: Supple, 2+ carotid pulse no bruit, No LAD, Without JVD or thyroid abnormality Respiratory: Clear to auscultation bilaterally, Normal air movement Cardiovascular: Regular rate/rhythm, Normal S1 S2 Gastrointestinal: Normal bowel sounds, No tenderness Musculoskeletal: No tenderness Integumentary: No rashes Neurological: Normal speech, Normal strength at 5/5 x4 extr, Normal tone, Normal affect - Studies Laboratory Data (last 24 hrs) 06/07/22 21:55: Sodium 139, Potassium 3.8, BUN 19 H, Creatinine 0.84, Glucose 200 H 06/07/22 21:50: WBC 6.10, Hgb 13.9, Hct 41.0, Plt Count 170 <Ryan Parks - Last Filed: 06/08/22 00:42> - Studies Laboratory Data (last 24 hrs) 06/07/22 21:55: Sodium 139, Potassium 3.8, BUN 19 H, Creatinine 0.84, Glucose 200 H 06/07/22 21:50: PT Cancelled, INR Cancelled 06/07/22 21:50: WBC 6.10, Hgb 13.9, Hct 41.0, Plt Count 170 <Esteban Melendez - Last Filed: 06/08/22 16:29> Assessment and Plan - Plan Assessment: Chest pain rule out ACS history CAD with CABG Diabetes most type IIinsulin-dependent with hyperglycemia Atrial fibrillation on chronic anticoagulation therapy Hypertension Hyperlipidemia Plan: Chest pain rule out ACS history CAD with CABG: Trend troponins, monitor on telemetry, cardiology consult in place. Continue home medications including Xarelto, carvedilol, atorvastatin. Patient pain-free at this time. Appreciate further input from cardiology. Diabetes most type IIinsulin-dependent with hyperglycemia: Sliding scale insulin. Atrial fibrillation on chronic anticoagulation therapy: Home medications continued including Xarelto, carvedilol. Hypertension: Home medications continued including carvedilol, losartan. Hyperlipidemia: No medications continued including atorvastatin. DVT PPX: Continue Xarelto Code status: Full Discharge Plan: Home Plan to discharge in: 24 Hours - Advance Directives Does patient have a Living Will: No Does patient have a Durable POA for Healthcare: No - Code Status/Comfort Care Code Status Assessed: Yes (Full code) Critical Care: No Time Spent Managing Pts Care (In Minutes): 70 <Ryan Parks - Last Filed: 06/08/22 00:42> Physician Review: Patient Assessed, Agree with Above Assessment and Plan <Esteban Melendez - Last Filed: 06/08/22 16:29>
[2022-06-08] MEDS ORDERED: ONDANSETRON 4 MG/2 ML VIAL IV PRN (01:00)
[2022-06-08] MEDS ORDERED: MELATONIN 5 MG TABLET PO ONE (01:26)
[2022-06-08 03:06] VITALS: BMI 33.1
[2022-06-08] MEDS ORDERED: carvediloL 3.125 MG TAB PO SCH (06:00)
[2022-06-08 06:14] LABS: Absolute Lymphocytes (CBC) 2.3 K/uL (0.7-4.9); Hematocrit 42.5 % (39.6-49.0); Lymphocytes % 38.8 % (15.3-44.8); MCV 93.8 fL (80-100); MPV 8.2 fL (7.6-11.3); RBC Red Blood Cell Count 4.53 M/uL (4.33-5.43)
[2022-06-08 06:35] LABS: Albumin 3.6 g/dL (3.4-5.0); Potassium 3.4 mmol/L (3.5-5.1); Protein, Total 7.5 g/dL (6.4-8.2); Troponin High Sensitivity 28.6 pg/mL (<58.9)
[2022-06-08] MEDS: INSULIN -REGULAR HUMAN 50 UNIT/0.5 ML ML SQ SCH ×4 (07:30→20:56)
[2022-06-08] MEDS: LOSARTAN POTASSIUM 50 MG TABLET PO SCH (09:08)
[2022-06-08] MEDS: KCL 20 MEQ/100 mL IVPB 20 MEQ/100 ML BAG IV SCH ×2 (09:08→10:00)
[2022-06-08] MEDS ORDERED: FUROSEMIDE 40 MG/4 ML VIAL IV ONE (11:32)
[2022-06-08] MEDS ORDERED: POTASSIUM CL SA 10 MEQ TAB PO ONE (11:56)
--- NOTE | 2022-06-08 12:56 | ECHO ---
HEIGHT: 6 ft 1 in WEIGHT: 251 lb 0 oz DATE OF STUDY: 06/08/[address]: Kofi Diaz MD 2-DIMENSIONAL: YES M.MODE: YES DOPPLER: YES COLOR FLOW: YES TDS: PORTABLE: DEFINITY: BUBBLE STUDY: DIAGNOSIS: CONGESTIVE HEART FALURE CARDIAC HISTORY: CATHERIZATION: YES SURGERY: YES PROSTHETIC VALVE: NO PACEMAKER: NO MEASUREMENTS (cm) DIASTOLIC (NORMALS) SYSTOLIC (NORMALS) IVSd 1.3 (0.6-1.2) LA Diam 3.8 (1.9-4.0) LVEF 50% LVIDd 5.2 (3.5-5.7) LVIDs 3.9 (2.0-3.5) %FS 25% LVPWd 1.3 (0.6-1.2) Ao Diam 3.0 (2.0-3.7) 2 DIMENSIONAL ASSESSMENT: RIGHT ATRIUM: NORMAL LEFT ATRIUM: NORMAL RIGHT VENTRICLE: NORMAL LEFT VENTRICLE: LEFT VENTRICULAR HYPERTROPHY TRICUSPID VALVE: NORMAL MITRAL VALVE: NORMAL PULMONIC VALVE: NORMAL AORTIC VALVE: NORMAL PERICARDIAL EFFUSION: NONE AORTIC ROOT: NORMAL LEFT VENTRICULAR WALL MOTION: NORMAL. DECREASED LEFT VENTRICULAR COMPLIANCE. DOPPLER/COLOR FLOW: MILD TRICUSPID REGURGITATION. COMMENTS: LEFT VENTRICULAR HYPERTROPHY. NORMAL EJECTION FRACTION. DECREASED LEFT VENTRICULAR COMPLIANCE. MILD TRICUPSID REGURGITATION. TECHNOLOGIST: ROB YEH
[2022-06-08] MEDS: FUROSEMIDE 40 MG TABLET PO SCH (16:36)
[2022-06-08] MEDS ORDERED: RIVAROXABAN 10 MG TABLET PO SCH (17:00)
[2022-06-08] MEDS: carvediloL 6.25 MG TAB PO SCH (20:56)
[2022-06-08] MEDS ORDERED: ATORVASTATIN 40 MG TAB PO SCH (21:00)
[2022-06-08] MEDS ORDERED: MELATONIN 5 MG TABLET PO PRN (21:19)
[2022-06-09 06:48] LABS: Absolute Lymphocytes (CBC) 2.1 K/uL (0.7-4.9); Hematocrit 42.1 % (39.6-49.0); Lymphocytes % 33.8 % (15.3-44.8); MCV 93.1 fL (80-100); MPV 7.7 fL (7.6-11.3); RBC Red Blood Cell Count 4.52 M/uL (4.33-5.43)
[2022-06-09 07:05] LABS: Albumin 3.3 g/dL (3.4-5.0); Bilirubin Total 0.9 mg/dL (0.2-1.0); Potassium 3.7 mmol/L (3.5-5.1); Protein, Total 7.1 g/dL (6.4-8.2)
[2022-06-09] MEDS: carvediloL 6.25 MG TAB PO SCH (08:22)
[2022-06-09] MEDS: INSULIN -REGULAR HUMAN 50 UNIT/0.5 ML ML SQ SCH ×2 (08:22→12:13)
[2022-06-09] MEDS: FUROSEMIDE 40 MG TABLET PO SCH (08:22)
[2022-06-09] MEDS: LOSARTAN POTASSIUM 50 MG TABLET PO SCH (08:22)
[2022-06-09 12:20] VITALS: O2SAT 97
--- NOTE | 2022-06-09 14:49 | P.DS ---
Admission Date: 06/08/22 Discharge Date: 06/09/22 Disposition: ROUTINE DISCHARGE Discharge Condition: GOOD Reason for Admission: Chest pain Consultations: 1. Cardiology Hospital Course: DIAGNOSES: # Acute Decompensated Diastolic Congestive Heart Failure with Preserved Ejection Fraction # Hyperglycemia in Type II Diabetes Mellitus # Chronic Atrial Fibrillation on Rivaroxaban # Hypertension # Hyperlipidemia HOSPITAL COURSE: Mr. Ehsan Emmanuel is a pleasant 71 year old male with a past medical history significant for type 2 diabetes mellitus, chronic atrial fibrillation, hypertension, and hyperlipidemia who was admitted to the [facility] on 06/08/2022 for chest pain. He was admitted to the Medicine service. His evaluation revealed a troponin trend of 26.4 -> 28.6 -> 22.5, respectively. D-Dimer was 389. Chest x-ray revealed, "mild to moderate CHF." A transthoracic echocardiogram revealed, "left ventricular hypertrophy. normal ejection fraction. decreased left ventricular compliance. mild tricupsid regurgitation." He was treated with IV furosemide, with significant improvement in his symptoms. Cardiology was consulted, and he was evaluated by Dr. Diaz. Dr. Diaz has cleared him for discharge with furosemide 40 mg PO daily and an outpatient follow-up for a nuclear stress test. On 06/09/2022, he was seen on morning rounds and deemed medically stable for discharge. He was discharged with instructions to schedule follow-up appointments with his PCP (Dr. Mitchell) in 3-5 days and with Cardiology (Dr. Diaz) in 3-5 days. He was provided a prescription for furosemide. He was given the opportunity to ask questions and reported no further questions. Furthermore, all questions were answered to the best of my ability. Today, I personally spent 25 minutes on his case, of which greater than 50% of the time was spent in patient education, counseling, and coordination of care as described above. Vital Signs/Physical Exam: Temp Pulse Resp BP Pulse Ox 97.9 F 78 20 174/95 H 94 06/09/22 12:00 06/09/22 12:18 06/09/22 12:18 06/09/22 12:18 06/09/22 12:00 General: Alert, In no apparent distress, Oriented x3 HEENT: Atraumatic, PERRLA, Mucous membr. moist/pink, EOMI, Sclerae nonicteric Neck: Supple, JVD not distended Respiratory: Clear to auscultation bilaterally, Normal air movement Cardiovascular: Regular rate/rhythm, Normal S1 S2, No gallops, No rubs, No murmurs, Edema (trace-1+ pitting) Gastrointestinal: Normal bowel sounds, Soft and benign, Non-distended, No tende rness, No rebound, No guarding Musculoskeletal: No clubbing Integumentary: No rashes Neurological: Normal speech, Cranial nerves 3-12 intact, Normal affect Laboratory Data at Discharge: WBC 6.40 K/uL (4.3-10.9) 06/09/22 06:34 Hgb 14.5 g/dL (13.6-17.9) 06/09/22 06:34 Hct 42.1 % (39.6-49.0) 06/09/22 06:34 Plt Count 175 K/uL (152-406) 06/09/22 06:34 PT Cancelled 06/07/22 21:50 INR Cancelled 06/07/22 21:50 Sodium 136 mmol/L (136-145) 06/09/22 06:34 Potassium 3.7 mmol/L (3.5-5.1) 06/09/22 06:34 BUN 22 mg/dL (7-18) H 06/09/22 06:34 Creatinine 0.85 mg/dL (0.55-1.3) 06/09/22 06:34 Glucose 272 mg/dL (74-106) H 06/09/22 06:34 Total Bilirubin 0.9 mg/dL (0.2-1.0) 06/09/22 06:34 AST 28 U/L (15-37) 06/09/22 06:34 ALT 57 U/L (12-78) 06/09/22 06:34 Alkaline Phosphatase 113 U/L (45-117) 06/09/22 06:34 Triglycerides 74 mg/dL (<150) 06/08/22 05:42 Cholesterol 120 mg/dL (<200) 06/08/22 05:42 HDL Cholesterol 48 mg/dL (40-60) 06/08/22 05:42 Cholesterol/HDL Ratio 2.50 06/08/22 05:42 Home Medications: RX: Duloxetine HCl [Cymbalta] 60 mg PO BID 05/31/16 RX: Krill/Om-3/Dha/Epa/Phospho/Ast [Megared [place]-3 Krill 300 mg] 800 mg PO [id number] 05/31/16 RX: Curcumin 500 mg PO BID 08/13/19 Areds 2 1 drop EACH EYE BID 06/08/22 Curaphen 1 cap PO [id number] 06/08/22 RX: ARIPiprazole [Aripiprazole] 2 mg PO [id number] 06/08/22 RX: Atorvastatin Calcium [Lipitor] 40 mg PO BEDTIME 06/08/22 RX: Carvedilol [Coreg] 3.125 mg PO [id number] 06/08/22 RX: Insulin Glargine,Hum.rec.anlog [Lantus] 60 unit SQ BEDTIME 06/08/22 RX: Losartan Potassium [Cozaar] 50 mg PO BEDTIME 06/08/22 RX: Rivaroxaban [Xarelto] 20 mg PO DAILY AT SUPPER 06/08/22 RX: Rivastigmine Patch [Exelon 9.5 mg Patch] 9.5 mg TOP BEDTIME 06/08/22 Furosemide [Lasix] 40 mg PO DAILY #30 tab 06/09/22 New Medications: Furosemide [Lasix] 40 mg PO DAILY #30 tab Physician Discharge Instructions: 1. Please schedule a follow-up with your PCP (Dr. Mitchell) in 3-5 days 2. Please schedule a follow-up with Cardiology (Dr. Diaz) in 3-5 days - He will schedule a cardiac stress test with you at this appointment Diet: Low sodium Activity: Ad qamar Followup: Kofi Diaz MD [ACTIVE - CAN ADMIT] - (Call to schedule appointment.) Bill Mitchell MD [Primary Care Provider] - (Call to schedule appointment) Time spent managing pt's care (in minutes): 25
[2022-06-09 16:16] VITALS: BP 152/94; TEMP 98.3
--- NOTE | 2022-06-10 19:24 | CON ---
Date of Consultation: 06/08/2022 Reason For Consultation: Chest pain. History Of Present Illness: Mr. Emmanuel is a 71-year-old male. He is very well known to me from previo us office visits and admission. He had a history of CAD, status post CABG. Last catheterization in 2019 showed patent graft to the JOHN and to the OM and PDA. It was a jump graft. He has occluded na tive vessels. Came in with 3 days' of constant chest pressure, shortness of breath. Chest x-ray jacinda wed moderate congestive heart failure. BNP was 594. His troponin was minimally elevated. He is on Lasix now and has been receiving IV Lasix, but has improved mildly. Denied any nausea, vomiting, guera phoresis. Has had some PND, orthopnea, pedal edema. No palpitation. No syncope. No fever or chill s. Past Medical History: Includes atrial fibrillation, CABG, hypertension, diabetes, dyslipidemia, and depression. Allergies: NONE. Review of Systems: Negative. Social History: Negative. Family History: Negative. Medications: At home include Lipitor, Coreg, insulin, losartan, and Xarelto. Physical Examination: General: He was in mild respiratory distress, complaining of chest pressure. Vital Signs: Stable, afebrile, sinus rhythm. HEENT: Negative. Neck: Supple with no bruit. Chest: Revealed rales both bases. Cardiac: Revealed a regular rhythm and rate with S4 gallops. No murmurs or rubs. Abdomen: Benign. Extremities: Revealed no clubbing, cyanosis, or edema. Diagnostic Data: Listed earlier. Impression And Plan: Chest pressure for 3 days in a patient with a history of coronary artery bypass graft. Chest x-ray shows failure. BNP is elevated. I think his symptoms are more related to conge stive heart failure. I would be more aggressive with his treatment with Lasix and I will give him 80 mg IV twice a day and then see how he does. Get another echocardiogram. He will need an outpatient Lexiscan in the very near future. Also, double his Coreg. Case was discussed with Dr. Melendez. His atrial fibrillation, hypertension, diabetes, dyslipidemia, and depression are stable. Again, heavy d iuresis, watch creatinine, watch sodium, watch I and O's and daily weight. Get another echocardiogra m, outpatient Lexiscan. I will continue to follow. NB/VITA Voice ID: [id number] Report ID: [id number]
--- NOTE | 2022-06-10 19:33 | PN ---
Date of Progress Note: 06/09/2022 Mr. Emmanuel came in with 3 days of constant chest pressure and elevated troponin. Chest x-ray showed mo derate CHF. Has a history of atrial fibrillation, CABG, hypertension, diabetes, dyslipidemia, and de pression. He is on Xarelto. I recommended doubling up his Coreg, outpatient Lexiscan. Has improved on IV Lasix as far as diuresis is concerned. Echocardiogram showed an ejection fraction of 50%, dec reased left ventricular compliance, left ventricular hypertrophy, mild tricuspid regurgitation. Edwin aragon I think he can go home. I will make an arrangement for office visit soon with the Lexiscan. Add L asix 40 mg daily to his home regimen and continue Xarelto, double Coreg. ROSALINA/VITA Voice ID: [id number] Report ID: [id number]
--- NOTE | 2022-06-13 06:46 | EKG ---
Test Date: 2022-06-07 Test Time: 21:00:58 [employer]: MEASUREMENT RESULTS: Intervals: Rate: 84 CA: QRSD: 110 QT: 410 QTc: 484 [place]: P: CA: QRS: 48 T: 83 INTERPRETIVE STATEMENTS: Atrial fibrillation Nonspecific T wave abnormality, probably digitalis effect Prolonged QT Abnormal ECG Compared to ECG 08/12/2019 20:08:11 Sinus rhythm no longer present First degree AV block no longer present Possible ischemia no longer present T-wave abnormality still present Electronically Signed On 06-13-22 06:33:15 CDT by Kofi Diaz
== END 2022-06-09 17:10 | disposition home or self-care (01) ==
LOC: ER 20:42 → ERHOLD 06-08 00:05 → 4TH 06-08 00:38
PROVIDERS: ADMIT Internal Medicine; ATTEND Internal Medicine
DX: I11.0 Hypertensive heart disease with heart failure (principal); I50.33 Acute on chronic diastolic (congestive) heart failure; I25.10 Atherosclerotic heart disease of native coronary artery without angina pectoris; I48.19 Other persistent atrial fibrillation; E11.65 Type 2 diabetes mellitus with hyperglycemia; I07.1 Rheumatic tricuspid insufficiency; E78.5 Hyperlipidemia, unspecified; F32.A Depression, unspecified; Z95.1 Presence of aortocoronary bypass graft; Z79.01 Long term (current) use of anticoagulants; Z79.4 Long term (current) use of insulin; Z79.899 Other long term (current) drug therapy; Z20.822 Contact with and (suspected) exposure to COVID-19; Z82.49 Family history of ischemic heart disease and other diseases of the circulatory system; Z80.9 Family history of malignant neoplasm, unspecified
CPT/HCPCS: 93005; 93306; 85025 ×3; 80048; 36415 ×2; 84132; 80061; 82947 ×7; 85379; 83036; 84484 ×3; 80053 ×2; 83880; 71045; 99285; 87811; J1815 ×3; J1940; J3480; G0378 ×3

== ENCOUNTER 2023-08-02 12:39 | Inpatient (IN) | payer OTHER, MEDICARE ==
--- OUTSIDE RECORDS SUMMARY | 2023-08-02 12:43 | XMS REPORT | Continuity of Care Document ---
:1950 Author Organization [facility] t Address [address] [place] [address] [place] [id number] Care Team Providers Name Role Phone Juventino Jaimes V Attending Clinician Payers Payer Name Policy Type Policy Number Effective Date Expiration Date S ource Problems Condition Condition Condition Status Onset Resolution Last Treating Co mments Source Name Details Category Date Date Treatment Clinician Date UNK UNK Diagnosis Active 2017-06-11 Mem oria Active 04-04 05:18:00 l 04/04/2017 00:00: Ahsan aragon [place] [address] Alfred Insomnia Insomnia Problem Active 2017-06-14 Memoria (disorder) (disorder) 00:13:29 l Active [place] Problem 06/14/2017 [facility] PERSONAL PERSONAL Diagnosis Active 2017-06-11 Memoria HISTORY OF HISTORY OF 05:18:00 l COLONIC COLONIC Alfred POLYPS POLYPS Active [facility] Myocardial Myocardia Problem Resolve 2017-06-14 Memoria infarction l d 00:13:29 l (disorder) infarction He rmann (disorder) Resolved Problem 06/14/20172002 [facility] Diabetes Diabetes Problem Active 2017-06-14 Memoria mellitus mellitus 00:13:29 l (disorder) (disorder) He rmann Active Problem 06/14/2017 [facility] Hyperchole Problem Active 2017-06-14 M emoria sterolemia Hyperchole 00:13:29 l (disorder) sterolemia He rmann (disorder) Active Problem 06/14/2017 [facility] Hypertensi Hypertens Problem Active 2017-06-14 Memoria ve joaquín 00:13:29 l disorder, disorder, Herm alyx systemic systemic arterial arterial (disorder) (disorder) Active Problem 06/14/2017 [facility] Benign Benign Problem Active 2017-06-14 Mayito isidro prostatic prostatic 00:13:29 l hyperplasi hyperplasi He rmann a a (disorder) (disorder) Active Problem 06/14/2017 [facility] Allergies, Adverse Reactions, Alerts Allergy Allergy Status Severity Reaction(s) Onset Inactive Treating Comm ents Source Name Type Date Date Clinician No Known DA Active U 0 [facility] [place] No Known DA Active U 2017- [facility]-04 [place] [facility] Social History Smoking Status Start Date Stop Date Source Social History 2017-06-11 11:51:30 2017-06-11 11:51:30 [facility] Alfred Medications Ordered Filled Start Stop Current Ordering Indication Dosage Frequency Signature Comments Components Source Medication Medication Date Date Medication? Clinician (SIG) Name Name sodium 2017-0 No 1,000 mL, Memori a chloride 9-19 Rate: 25 l 0.9% 1000 11:36: ml/hr, Ahsan n ml INJ 00 Infuse 1,000 mL over: 40 hr, Route: IV, Dosing Weight 109.545 kg, Total Volume: 1,000, Start date: 06/11/17 6:36:00 CDT, Duration: 30 day, Stop date: 07/11/17 6:35:00 CDT sodium 2017-0 No 1,000 mL, Memori a chloride 9-19 Rate: 25 l 0.9% 1000 11:36: ml/hr, Ahsan n ml INJ 00 Infuse 1,000 mL over: 40 hr, Route: IV, Dosing Weight 109.545 kg, Total Volume: 1,000, Start date: 06/11/17 6:36:00 CDT, Duration: 30 day, Stop date: 07/11/17 6:35:00 CDT sodium 2017-0 No 1,000 mL, Memori a chloride 9-19 Rate: 25 l 0.9% 1000 11:36: ml/hr, Ahsan n ml INJ 00 Infuse 1,000 mL over: 40 hr, Route: IV, Dosing Weight 109.545 kg, Total Volume: 1,000, Start date: 06/11/17 6:36:00 CDT, Duration: 30 day, Stop date: 07/11/17 6:35:00 CDT Polyethylen Yes 1 drp, Mayito isidro e Glycol 9-15 OPTH, BID, l 400 4 MG/ML 15:11: PRN for Her aguero / Propylene 00 dry eyes, glycol 3 # 30 ml, 0 MG/ML Refill(s) Ophthalmic Solution [Systane] empaglifloz Yes 25 mg = 1 M emoria in 25 MG 9-15 tab, PO, l Oral Tablet 15:11: QAM, 0 Herm alyx [Jardiance] 00 Refill(s) Polyethylen Yes 1 drp, Mayito isidro e Glycol 9-15 OPTH, BID, l 400 4 MG/ML 15:11: PRN for Her aguero / Propylene 00 dry eyes, glycol 3 # 30 ml, 0 MG/ML Refill(s) Ophthalmic Solution [Systane] empaglifloz Yes 25 mg = 1 M emoria in 25 MG 9-15 tab, PO, l Oral Tablet 15:11: QAM, 0 Herm alyx [Jardiance] 00 Refill(s) Polyethylen Yes 1 drp, Mayito isidro e Glycol 9-15 OPTH, BID, l 400 4 MG/ML 15:11: PRN for Her aguero / Propylene 00 dry eyes, glycol 3 # 30 ml, 0 MG/ML Refill(s) Ophthalmic Solution [Systane] empaglifloz Yes 25 mg = 1 M emoria in 25 MG 9-15 tab, PO, l Oral Tablet 15:11: QAM, 0 Herm alyx [Jardiance] 00 Refill(s) Non-Formula Yes Sinu-Pro Me moria ry Home 15 otc, l Medication 15:10: Refill(s) He rmann 00 0 Non-Formula Yes Sinu-Pro Me moria ry Home 15 otc, l Medication 15:10: Refill(s) He rmann 00 0 Non-Formula Yes Sinu-Pro Me moria ry Home 15 otc, l Medication 15:10: Refill(s) He rmann 00 0 QUEtiapine Yes 25 mg = 1 Me moria 25 mg oral 9-15 tab, PO, l tablet 15:09: Bedtime, # Diann nn 00 30 tab, 1 Refill(s) Zolpidem 2017-0 Yes 5 mg = 1 Memor ia tartrate 5 9-15 tab, PO, l MG Oral 15:09: Bedtime, Ahsan n Tablet 00 PRN for [Ambien] sleep, 0 Refill(s) tamsulosin 2017 Yes 0.4 mg = 1 M emoria 0.4 mg oral 9-15 cap, PO, l capsule 15:09: Daily, # Ahsan n 00 30 cap, 0 Refill(s) 24 HR Yes = 1 patch, Memori a rivastigmin 9-15 TOP, l e 0.396 15:09: Daily, Alfred MG/HR 00 apply to Transdermal skin, # 90 Patch patch, 1 Refill(s) QUEtiapine Yes 25 mg = 1 Me moria 25 mg oral 9-15 tab, PO, l tablet 15:09: Bedtime, # Diann nn 00 30 tab, 1 Refill(s) Zolpidem 2017-0 Yes 5 mg = 1 Memor ia tartrate 5 9-15 tab, PO, l MG Oral 15:09: Bedtime, Ahsan n Tablet 00 PRN for [Ambien] sleep, 0 Refill(s) tamsulosin 2017-0 Yes 0.4 mg = 1 M emoria 0.4 mg oral 9-15 cap, PO, l capsule 15:09: Daily, # Ahsan n 00 30 cap, 0 Refill(s) 24 HR Yes = 1 patch, Memori a rivastigmin 9-15 TOP, l e 0.396 15:09: Daily, Alfred MG/HR 00 apply to Transdermal skin, # 90 Patch patch, 1 Refill(s) QUEtiapine 2017 Yes 25 mg = 1 Me moria 25 mg oral 9-15 tab, PO, l tablet 15:09: Bedtime, # Diann nn 00 30 tab, 1 Refill(s) Zolpidem 2017-0 Yes 5 mg = 1 Memor ia [...] 9-15 TOP, l e 0.396 15:09: Daily, [place] MG/HR 00 apply to Transdermal skin, # 90 Patch patch, 1 Refill(s) [facility]'s Yes 1,000 mg = Mem oria Bounty Red 9-15 2 cap, PO, l Krill Oil 15:08: BID, 0 Ahsan n 500 mg oral 00 Refill(s) capsule pravastatin Yes 40 mg = 1 M emoria 40 mg oral 9-15 tab, PO, l tablet 15:08: Bedtime, # Diann nn 00 30 tab, 0 Refill(s) Echometrix's Yes 1,000 mg = Mem oria Bounty Red 9-15 2 cap, PO, l Krill Oil 15:08: BID, 0 Ahsan n 500 mg oral 00 Refill(s) capsule pravastatin Yes 40 mg = 1 M emoria 40 mg oral 9-15 tab, PO, l tablet 15:08: Bedtime, # Diann nn 00 30 tab, 0 Refill(s) [facility] Yes 1,000 mg = Mem oria Bounty Red 9-15 2 cap, PO, l Krill Oil 15:08: [...] de 500 MG Refill(s) Oral Tablet finasteride 2017- Yes 5 mg = 1 Me moria 5 mg oral 9-15 tab, PO, l tablet 15:07: Daily, # Alfred 00 30 tab, 0 Refill(s) aspirin 81 0 Yes 81 mg = 1 Me moria mg tablet, 9-15 tab, PO, l enteric 15:07: Daily, # Ahsan n coated 00 90 tab, 3 Refill(s) duloxetine 2017 Yes 60 mg = 1 Me moria 60 MG 9-15 cap, PO, l Enteric 15:07: Daily, # Ahasn n Coated 00 30 cap, 0 Capsule Refill(s) [Cymbalta] Glyburide 5 Yes 1 tab, PO, Memoria MG / 9-15 BID-Meals, l Metformin 15:07: # 60 tab, Her aguero hydrochlori 00 0 de 500 MG Refill(s) Oral Tablet finasteride 2017 Yes 5 mg = 1 Me moria 5 mg oral 9-15 tab, PO, l tablet 15:07: Daily, # [place] 00 30 tab, 0 Refill(s) aspirin 81 0 Yes 81 mg = 1 Me moria mg tablet, 9-15 tab, PO, l enteric 15:07: Daily, # Ahsan n coated 00 90 tab, 3 Refill(s) duloxetine 2017-0 Yes 60 mg = 1 Me moria 60 MG 9-15 cap, PO, l Enteric 15:07: Daily, # Ahsan n Coated 00 30 cap, 0 Capsule Refill(s) [Cymbalta] Glyburide 5 Yes 1 tab, PO, Memoria MG / 9-15 BID-Meals, l Metformin 15:07: # 60 tab, Her aguero hydrochlori 00 0 de 500 MG Refill(s) Oral Tablet finasteride 2017-0 Yes 5 mg = 1 Me moria 5 mg oral 9-15 tab, PO, l tablet 15:07: Daily, # Alfred 00 30 tab, 0 Refill(s) Non-Formula Yes Curaphen Me moria ry Home 9-15 supplement l Medication 15:06: , Refill(s) 0 Non-Formula Yes Curaphen Ok vijaya duncan Home 15 supplement l Medication 15:06: , Refill(s) 0 Non-Formula 2016- Yes Néstoren Ok vijaya duncan [place] 15 supplement l Medication 15:06: , Refill(s) 0 clopidogrel 2017- Yes 75 mg = 1 M emoria 75 mg oral 9-15 tab, PO, l tablet 15:05: Daily, last dose 06-04-2017 , # 30 tab, 0 Refill(s) Centrum Yes 1 tab, PO, Mayito isidro Silver 9-15 Daily, 0 l Men's 15:05: Refill(s) clopidogrel 2016- Yes 75 mg = 1 M emoria 75 mg oral 9-15 tab, PO, l tablet 15:05: Daily, last dose 06-04-2017 , # 30 tab, 0 Refill(s) Centrum Yes 1 tab, PO, Mayito isidro Silver 9-15 Daily, 0 l Men's 15:05: Refill(s) clopidogrel Yes 75 mg = 1 M emoria 75 mg oral 9-15 tab, PO, l tablet 15:05: Daily, last dose 06-04-2017 , # 30 tab, 0 Refill(s) Centrum 0 Yes 1 tab, PO, Mayito isidro Silver 9-15 Daily, 0 l Men's 15:05: Refill(s) carvedilol Yes 12.5 mg = Me moria 12.5 mg 9-15 1 tab, PO, l oral tablet 15:04: BID, # 180 [place] 00 tab, 0 Refill(s) carvedilol Yes 12.5 mg = Me moria 12.5 mg 9-15 1 tab, PO, l oral tablet 15:04: BID, # 180 [place] 00 tab, 0 Refill(s) carvedilol Yes 12.5 mg = Me moria 12.5 mg 9-15 1 tab, PO, l oral tablet 15:04: BID, # 180 Alfred 00 tab, 0 Refill(s) Vital Signs Vital Name Observation Time Observation Value Comments Source Respitory Rate 2017-06-11 14:00:00 Memori al Alfred Systolic (mm Hg) 2017-06-11 14:00:00 Mayito rial [place] Diastolic (mm Hg) 2017-06-11 14:00:00 Mem orial Alfred Systolic (mm Hg) 2017-06-11 13:00:00 Mayito rial [place] Diastolic (mm Hg) 2017-06-11 13:00:00 Mem orial [place] Respitory Rate 2017-06-11 13:00:00 Memori al Alfred Systolic (mm Hg) 2017-06-11 12:45:00 Mayito rial [place] Diastolic (mm Hg) 2017-06-11 12:45:00 Mem orial Aflred Respitory Rate 2017-06-11 12:45:00 Memori al [place] [facility]07 [facility] 2017-06-07 14:55:[address] [facility] Height 2017-06-07 14:55:[address] [facility] BMI Calculated 2017-06-07 14:55:00 [facility] [place] Weight 2017-06-07 14:55:00 [facility] Procedures Procedure Date / Time Performed Performing Clinician Bryson condon CABG x 3 - Coronary [facility] artery bypass grafts x 3 Encounters Start End Encounter Admission Attending Care Care Encounter Source Date/Time Date/Time Type Type Clinicians Facility Department ID 2017-06-14 2017-06-14 Outpatient [facility] [id number] Memoria 11:30:00 11:30:00 00 l Alfred 2017-06-14 2017-06-14 Outpatient [facility] [id number] Memoria 11:30:00 11:30:00 00 l [place] 2017-06-11 2017-06-11 Bedded [facility] [id number] Memoria 10:18:00 13:20:00 Outpatient r [place] 00 [facility] 2017-06-11 2017-06-11 Bedded [facility] [id number] Memoria 10:18:00 13:20:00 Outpatient r Alfred 00 [facility] 2017-06-11 2017-06-11 Outpatient Fiona, [facility] [id number] 05:18:00 08:20:00 Juventino V 00 Results Test Description Test Time Test Comments Results Result [facility] e Comments - XR PELVIS 1/2 2018-12-08 Patient Name: ROSALINA 12:21:00 KYLEIGH LY Unit No: [id number] EXAMS: CPT CODE: [id number] XR PELVIS 1/2 VIEWS 79068 AP view the pelvis COMMENT: COMPARISON: No prior exams available. Completed total is a hip arthroplasty. Prosthesis appears to be in good position. at 1221 Reported and signed by: Sharlene Sow MD CC: Lori Nazario MD Technologist: KECIA MENDEZ, RT(R) Transcribed D/ (1221) [facility] NAME: KYLEIGH LY [address] [facility] PHYS: PATAN. Lori Nazario : 1950 AGE: 68 SEX: M [place] [address] LOC: Y.507 A PHONE #: [phone] EXAM DATE: 12/04/2018 STATUS: DIS IN FAX #: [phone] RAD #: D/C DT 12/06/2018 PAGE 1 Signed Report Patient Name: KYLEIGH LY Unit No: [id number] EXAMS: CPT CODE: [id number] XR PELVIS 1/2 VIEWS 63678 (Continued) Orig Print D/T: S: 12/08/2018 (1224) [facility] NAME: KYLEIGH LY [address] [facility] PHYS: PATAN. - Lori Nazario : 1950 AGE: 68 SEX: M [place], [place] [address] LOC: Y.507 A PHONE #: [phone] EXAM DATE: 12/04/2018 STATUS: DIS IN FAX #: [phone] RAD #: D/C DT 12/06/2018 PAGE 2 Signed Report GLUBED 2018-12-06 05:41:00 Test Item Value Reference Range Interpretation Comme nts GLUBED (test code = GLUBED) 198 mg/dL 60-125 H [id number] 20:19:00 Test Item Value Reference Range Interpretation [...] be considered for these patients.DONE A T: [facility] [address] [facility], [place], [place] [address] [id number] 16:46:00 Test Item Value Reference Range Interpretation Comments GLUBED (test code = GLUBED) 313 mg/dL 60-125 H [id number] 11:46:00 Test Item Value Reference Range Interpretation Comments GLUBED (test code = GLUBED) 322 mg/dL 60-125 H BASIC METABOLIC [id number] 06:12:00 Test Item Value Reference Range Interpretation [...] RATE (test code = GFR) mL/mi n/1.73 [id number] Range:Healthy Adults >90 mL/min/1.73 m2 For Chronic Kidney Disease: Stage II Mild Decrease i n GFR 60-90 Stage III Moderate Decrea se in GFR 30-59 St age IV Severe Decre ase in GFR 15-29 St age V Kidney Failur e <15 CREATININE (test code 0.99 mg/dL 0.55-1.30 N = CREAT) CALCIUM (test code = 7.8 mg/dL 8.2-10.1 L CA) HGB [id number] 05:50:00 Test Item Value Reference Range Interpretation Comments HEMOGLOBIN (test code = HGB) 10.3 g/dL 12-16 L HEMATOCRIT (test code = HCT) 29.8 % 37-47 L [id number] 05:31:00 Test Item Value Reference Range Interpretation Comments GLUBED (test code = GLUBED) 217 mg/dL 60-125 H [id number] 20:07:00 Test Item Value Reference Range Interpretation Comments GLUBED (test code = GLUBED) 297 mg/dL 60-125 H [id number] 16:55:00 Test Item Value Reference Range Interpretation Comments GLUBED (test code = GLUBED) 306 mg/dL 60-125 H - XR KNEE 1 OR 2 V [id number] 16:37:00 Patient Name: KYLEIGH LY Unit No: [id number] EXAMS: CPT CODE: [id number] XR KNEE 1 [place] 2 [place] [address] COMPARISON: None IMAGES PROVIDED: AP view the [...] Bowie MD Technologist: RT Daina.(R) Transcribed D/ (6497) [facility] NAME: KYLEIGH LY[address] [facility] PHYS: Calin Ronquillo MD : 1950 AGE: 68 SEX: M [place], [place] [address] LOC: Y.507 A PHONE #: [phone] EXAM DATE: 12/04/2018 STATUS: ADM IN FAX #:[phone] RAD #: D/C DT PAGE 1 Signed Report Patient Name: KYLEIGH LY Unit No: [id number] EXAMS: CPT CODE: [id number] XR KNEE 1 OR 2 [place] [address] (Continued) Orig Print D/T: S: 12/04/2018 (1640) [facility] NAME: KYLEIGH LY [address] [facility] [address] PHYS: Calin Ronquillo MD : 1950 AGE: 68 SEX: M [place], [place] [address] LOC: Y.507 A PHONE #: [phone] DATE: 12/04/2018 STATUS: ADM IN FAX #: [phone] RAD #: D/C DT PAGE 2 Signed Report- XR HIP W/PEL UNI 2+V [id number] 16:37:00 Patient Name: KYLEIGH LY Unit No: [id number] EXAMS: CPT CODE: [id number] XR HIP W/PEL UNI 2+[place] [address] COMPARISON: None IMAGES PROVIDED: AP view the pelvis and 5 views of the left femur FINDINGS: Acute transcervical left femoral neck fracture is demonstrated with 2 mm of superior displacement. Mild left hip joint degenerative changes. Enthesophytes are seen about the greater tuberosity. Vascular calcifications are present. No acute findings of the left knee. IMPRESSION: Acute left femoral neck fracture. at 1637 Reported andsigned by: Shine Trent M.D. CC: Bill Mitchell MD; Calin Bowie MD Technologist: RT Daina.(R) Transcribed D/ (1637) [facility] NAME: KYLEIGH LY [address] PHYS: Calin Ronquillo MD : 1950 AGE: 68 SEX: M [place], [place] [address] LOC: Y.507 A PHONE #: [phone] EXAM DATE: 12/04/2018 STATUS: ADM IN FAX#: [phone] RAD #: D/C DT PAGE 1 Signed Report Patient Name: KYLEIGH LY Unit No: [id number] EXAMS: CPT CODE: [id number] XR HIP W/PEL UNI 2+[place] [address] (Continued) Orig Print D/T: S: 12/04/2018 (1640) [facility] [place] [facility] NAME: KYLEIGH LY [address] [facility] PHYS: Calin Ronquillo MD : 1950 AGE: 68 SEX: M [place], [place] [address] LOC: Y.507 A PHONE #: [phone] EXAM DATE: 12/04/2018 STATUS: ADM IN FAX #: [phone] RAD #: D/C DT PAGE 2 Signed [id number] 12:39:00 Test Item Value Reference Range Interpretation Comments GLUBED (test code = GLUBED) 276 mg/dL 60-125 H COMPREHENSIVE METABOLIC [id number] 06:53:00 Test Item Value Reference Range Interpretation [...] RATE (test code = GFR) mL/mi n/1.73 [id number] Range:Healthy Adults >90 mL/min/1.73 m2 For Chronic [...] N TOTAL (test code = ALKP) PROTHROMBIN [id number] 06:41:00 Test Item Value Reference Range Interpretation [...] PT every other day N THROMBOPLASTIN TIME [id number] 06:41:00 Test Item Value Reference Range Interpretation Comments PTT ACTIVATED (test code = APTT) 31.1 secs 24.9-37.0 N IS PATIENT ON ANTICOAGULANTS ? YLIST ANTICOAGULANT/ANTI PLT MEDICATION : Plavix (Anti-PLT)Has Lab been notified if Patient is on Heparin Drip? YESAddn't Lab Tests to be ordered if Y. NIf Yes, order CBC, OCCULT BLOOD, PT every other day N [id number] 05:53:00 Test Item Value Reference Range Interpretation Comments GLUBED (test code = GLUBED) 221 mg/dL 60-125 H CBC W/AUTO [id number] 05:41:00 Test Item Value Reference Range Interpretation [...] 0 % 0-0 N code = NRBC) [id number] 12:53:00 Test Item Value Reference Range Interpretation Comments eGFR (test code = eGFR) 94 [facility] [id number] 12:53:00 Test Item Value Reference Range Interpretation Comments Lymphocytes # (test code = Lymphocytes 1.7 1.0-5.5 #) [facility] [id number] 12:53:00 Test Item Value Reference Range Interpretation Comments Segs-Bands # (test code = Segs-Bands #) 3.3 1.5-8.1 [facility] [id number] 12:53:00 Test Item Value Reference Range Interpretation Comments Lymphocytes (test code = Lymphocytes) 29.3 20.0-40.0 [facility] Tyl[id number] 12:53:00 Test Item Value Reference Range Interpretation Comments Monocytes (test code = Monocytes) 9.8 2.0-12.0 [facility] [id number] 12:53:00 Test Item Value Reference Range Interpretation Comments Eosinophils (test code = 1.9 See_Comment [A utomated message] The Eosinophils) system which ge nerated this result tra nsmitted reference range : <=4.0. The reference r sherman was not used to int erpret this result as normal/abnormal . [id number] 12:53:00 Test Item Value Reference Range Interpretation Comments Bili Total (test code = Bili Total) 0.5 0.2-1.3 [facility] TylerLgdeaeaSQRTIFNZOD5592-15-76 12:53:00 Test Item Value Reference Range Interpretation Comments Eosinophils # (test code 0.1 See_Comment [A utomated message] The = Eosinophils #) system whic h generated this result tra nsmitted reference range : <=0.5. The reference r sherman was not used to int erpret this result as normal/abnormal . [facility] TylerDitshjnUKJZMKHRDU5536-81-55 12:53:00 Test Item Value Reference Range Interpretation Comments Monocytes # (test code 0.6 See_Comment [Aut omated message] The = Monocytes #) system which generated this result tra nsmitted reference range : <=0.8. The reference r sherman was not used to int erpret this result as normal/abnormal . [facility]goswe[facility]HRHJIZZAB[facility]14-86-19 12:53:00 Test Item Value Reference Range Interpretation Comments Segs (test code = Segs) 58.5 45.0-75.0 [facility]EAXGQKXKZW0529-26-13 12:53:00 Test Item Value Reference Range Interpretation Comments Basophils (test code = 0.5 See_Comment [Aut omated message] The Basophils) system which ge nerated this result tra nsmitted reference range : <=1.0. The reference r sherman was not used to int erpret this result as normal/abnormal . [facility]iacLrtkvvxBIIJJHJUVSOO2236-57-56 12:53:00 Test Item Value Reference Range Interpretation Comments ALANINE AMINOTRANSFERASE (test code = 28 <=65 ALANINE AMINOTRANSFERASE) [facility] [id number] 12:53:00 Test Item Value Reference Range Interpretation Comments CEA (test code = CEA) 2.9 See_Comment [Auto mated message] The system which ge nerated this result transmit eb reference range : <=3.0. The reference range was not used to interpr et this result as bob l/abnormal. [facility]iacCglxscqUKSEBJKBLIPE3027-21-10 12:53:00 Test Item Value Reference Range Interpretation Comments Albumin Lvl (test code = Albumin Lvl) 3.4 3.5-5.0 [facility]iac[id number] 12:53:00 Test Item Value Reference Range Interpretation Comments Alk Phos (test code = Alk Phos) 68 39-136 [facility]iac[id number] 12:53:00 Test Item Value Reference Range Interpretation Comments ASPARTATE TRANSAMINASE (test code = 20 <=37 ASPARTATE TRANSAMINASE) [facility][id number] 12:53:00 Test Item Value Reference Range Interpretation Comments Calcium Lvl (test code = Calcium Lvl) 8.7 8.5-10.5 [facility]iacPzzgrshLQFZPBQUKDCI4403-04-66 12:53:00 Test Item Value Reference Range Interpretation Comments CO2 (test code = CO2) 30 24-32 [facility]iacXiidtkqGFINBUYKCTBN7565-21-74 12:53:00 Test Item Value Reference Range Interpretation Comments Total Protein (test code = Total 6.9 6.4-8.4 Protein) [facility]iacZyzlfhnYGZARHTTGCGZ4558-13-83 12:53:00 Test Item Value Reference Range Interpretation Comments Chloride Lvl (test code = Chloride Lvl) 106 95-109 [facility]iacDdruwneZCBHAZSUYSAT9683-71-06 12:53:00 Test Item Value Reference Range Interpretation Comments Potassium Lvl (test code = Potassium 4.5 3.5-5.1 Lvl) [facility]iacBpolpwtUJIBPJROZHJR1799-92-06 12:53:00 Test Item Value Reference Range Interpretation Comments Sodium Lvl (test code = Sodium Lvl) 140 135-145 [facility]iacQzltbdaLQNUKNWRPHNQ1810-43-17 12:53:00 Test Item Value Reference Range Interpretation Comments Creatinine Lvl (test code = Creatinine 0.77 0.50-1.40 Lvl) [facility]iacTffflskSUGHFLGNRWFL0748-48-15 12:53:00 Test Item Value Reference Range Interpretation Comments BUN (test code = BUN) 18 7-22 [facility]iacRstwbilYJIZCXLEXBJD2581-47-58 12:53:00 Test Item Value Reference Range Interpretation Comments Glucose Lvl (test code = Glucose Lvl) 121 70-99 [facility] TylerSuokdzzNKLYLIFBBP7110-55-63 12:53:00 Test Item Value Reference Range Interpretation Comments MCH (test code = MCH) 33.2 pg 27.0-31.0 [facility] TylerMrtwqfaWCQGZYEQBI9821-95-83 12:53:00 Test Item Value Reference Range Interpretation Comments MCHC (test code = MCHC) 34.9 32.0-36.0 [facility] TylerLwitmhoZKYCDOPXMB6378-03-40 12:53:00 Test Item Value Reference Range Interpretation Comments Platelet (test code = Platelet) 172 133-450 [facility] TylerZbdrhtvXAHGERLSNM2329-19-12 12:53:00 Test Item Value Reference Range Interpretation Comments RDW (test code = RDW) 12.8 11.5-14.5 [facility] TylerYvsojpaHBJUWCHXPX4102-59-38 12:53:00 Test Item Value Reference Range Interpretation Comments MPV (test code = MPV) 7.9 7.4-10.4 [facility] TylerYxsudasPKNEPYVRYN9136-20-34 12:53:00 Test Item Value Reference Range Interpretation Comments RBC X 10x6 (test code = RBC X 10x6) 4.10 4.70-6.10 [facility] TylerZfevnttDINQCLBTPZ1618-94-89 12:53:00 Test Item Value Reference Range Interpretation Comments Hgb (test code = Hgb) 13.6 14.0-18.0 [facility] TylerXxhaxhnPQPDIJFHSU9273-74-28 12:53:00 Test Item Value Reference Range Interpretation Comments WBC X 10x3 (test code = WBC X 10x3) 5.7 3.7-10.4 [facility] TylerIothfugLMYVWDQZJD4147-40-09 12:53:00 Test Item Value Reference Range Interpretation Comments Hct (test code = Hct) 39.1 42.0-54.0 [facility] TylerJxhsgmbGGJEJIVKPL6388-88-05 12:53:00 Test Item Value Reference Range Interpretation Comments MCV (test code = MCV) 95.3 80.0-94.0 [facility] TylerXgbzmwlRLSVWPXAPA4010-80-20 12:53:00 Test Item Value Reference Range Interpretation Comments Lymphocytes # (test code = Lymphocytes 1.7 1.0-5.5 #) [facility] TylerPihmszdUMAZQTEPID8482-64-90 12:53:00 Test Item Value Reference Range Interpretation Comments Segs-Bands # (test code = Segs-Bands #) 3.3 1.5-8.1 [facility] TylerOgrevipFOMSKNAUQZ7515-44-84 12:53:00 Test Item Value Reference Range Interpretation Comments Lymphocytes (test code = Lymphocytes) 29.3 20.0-40.0 [facility] TylerKomazuvGZSAOMTKFI2205-56-91 12:53:00 Test Item Value Reference Range Interpretation Comments Monocytes (test code = Monocytes) 9.8 2.0-12.0 [facility] TylerHookpkzDHEUERFWQH9060-93-60 12:53:00 Test Item Value Reference Range Interpretation Comments Eosinophils (test code = Eosinophils) 1.9 <=4.0 [facility] TylerDtmbjymYRRVGNZALD5025-00-44 12:53:00 Test Item Value Reference Range Interpretation Comments Eosinophils # (test code = Eosinophils 0.1 <=0.5 #) [facility] TylerJvdueftTKEIXATCQM1527-90-25 12:53:00 Test Item Value Reference Range Interpretation Comments Monocytes # (test code = Monocytes #) 0.6 <=0.8 [facility]YmloduqQZDTREWWEJEC5122-40-99 12:53:00 Test Item Value Reference Range Interpretation Comments AGAP (test code = AGAP) 8.5 10.0-20.0 [facility]YlgokqzIQBHCHWPHTQI5277-37-09 12:53:00 Test Item Value Reference Range Interpretation Comments B/C Ratio (test code = B/C Ratio) 23 6-25 [facility]TbnkwuyFPVQGMWHLONN4899-96-54 12:53:00 Test Item Value Reference Range Interpretation Comments A/G Ratio (test code = A/G Ratio) 1.0 0.7-1.6 [facility]WfnajfgJDROKHSKCNUI3009-70-85 12:53:00 Test Item Value Reference Range Interpretation Comments Globulin (test code = Globulin) 3.5 2.7-4.2 [facility]IIJWGTAGKI8083-96-50 12:53:00 Test Item Value Reference Range Interpretation Comments Segs (test code = Segs) 58.5 45.0-75.0 [facility]VoibgkyLOEJWCLXZFIZ9163-73-38 12:53:00 Test Item Value Reference Range Interpretation Comments eGFR (test code = eGFR) 94 [facility]JkudwjlPAKOBOWYTSFU8217-47-69 12:53:00 Test Item Value Reference Range Interpretation Comments Bili Total (test code = Bili Total) 0.5 0.2-1.3 [facility]DzohwbwEQQBRAFWELRA3082-61-41 12:53:00 Test Item Value Reference Range Interpretation Comments ALANINE AMINOTRANSFERASE (test code = 28 <=65 ALANINE AMINOTRANSFERASE) [facility]NgvmipwABMSUDCSFSTB5953-28-62 12:53:00 Test Item Value Reference Range Interpretation Comments Albumin Lvl (test code = Albumin Lvl) 3.4 3.5-5.0 [facility]YsyxysoEEPEQUSCETXB7967-43-05 12:53:00 Test Item Value Reference Range Interpretation Comments Alk Phos (test code = Alk Phos) 68 39-136 [facility]DukuwlkPUHUWVIVEXRG4626-37-34 12:53:00 Test Item Value Reference Range Interpretation Comments ASPARTATE TRANSAMINASE (test code = 20 <=37 ASPARTATE TRANSAMINASE) [facility]VsryrboTNDVJFEXVIOR2457-45-32 12:53:00 Test Item Value Reference Range Interpretation Comments Calcium Lvl (test code = Calcium Lvl) 8.7 8.5-10.5 [facility]QdhnicxBRLVTCDOLVNB4175-90-97 12:53:00 Test Item Value Reference Range Interpretation Comments CO2 (test code = CO2) 30 24-32 [facility]ItvpxrqISQXIRIAWNKN9467-67-07 12:53:00 Test Item Value Reference Range Interpretation Comments Total Protein (test code = Total 6.9 6.4-8.4 Protein) [facility]OvlgcskBIXDOBAAKBCK6857-27-56 12:53:00 Test Item Value Reference Range Interpretation Comments Chloride Lvl (test code = Chloride Lvl) 106 95-109 [facility] TylerXirhefhMTQQYUDWQU8513-81-81 12:53:00 Test Item Value Reference Range Interpretation Comments Basophils (test code = Basophils) 0.5 <=1.0 [facility]QxyxgjdLJJOXSKEVWZF3308-26-35 12:53:00 Test Item Value Reference Range Interpretation Comments Potassium Lvl (test code = Potassium 4.5 3.5-5.1 Lvl) [facility]YmzydekMPBQOFPENHLN1585-00-56 12:53:00 Test Item Value Reference Range Interpretation Comments Sodium Lvl (test code = Sodium Lvl) 140 135-145 [facility]DpwtvvrARCLWXMKTOEO3204-00-79 12:53:00 Test Item Value Reference Range Interpretation Comments Creatinine Lvl (test code = Creatinine 0.77 0.50-1.40 Lvl) [facility]IdcslxfOCDFLAZAQTDV9620-39-30 12:53:00 Test Item Value Reference Range Interpretation Comments BUN (test code = BUN) 18 7-22 [facility]FfyhgboHRWBWEETNGIJ8820-79-12 12:53:00 Test Item Value Reference Range Interpretation Comments Glucose Lvl (test code = Glucose Lvl) 121 70-99 [facility] TylerEwwxzimVVYOYCNCSM1044-38-43 12:53:00 Test Item Value Reference Range Interpretation Comments MCH (test code = MCH) 33.2 pg 27.0-31.0 [facility] TylerXhivpfnUPVHRZGYEB1652-98-42 12:53:00 Test Item Value Reference Range Interpretation Comments MCHC (test code = MCHC) 34.9 32.0-36.0 [facility] TylerVomcxlkWIECAFTVDV9469-52-76 12:53:00 Test Item Value Reference Range Interpretation Comments Platelet (test code = Platelet) 172 133-450 [facility]PddbqbzMXJUJHRHNY5689-12-67 12:53:00 Test Item Value Reference Range Interpretation Comments RDW (test code = RDW) 12.8 11.5-14.5 [facility] HospitalXgzvfanEBVITRSQCV9861-31-56 12:53:00 Test Item Value Reference Range Interpretation Comments MPV (test code = MPV) 7.9 7.4-10.4 [facility]2017-09-19 12:53:00 Test Item Value Reference Range Interpretation Comments CEA (test code = CEA) 2.9 <=3.0 [facility] TylerOwnldbdDCNPRLWEAH8816-19-98 12:53:00 Test Item Value Reference Range Interpretation Comments RBC X 10x6 (test code = RBC X 10x6) 4.10 4.70-6.10 [facility] TylerVvmudnqMRIYXPMJEU6456-30-28 12:53:00 Test Item Value Reference Range Interpretation Comments Hgb (test code = Hgb) 13.6 14.0-18.0 [facility] TylerCqwatsoXJUZRGGNNC7203-20-41 12:53:00 Test Item Value Reference Range Interpretation Comments WBC X 10x3 (test code = WBC X 10x3) 5.7 3.7-10.4 [facility] TylerBgwillgXJETTANNQL4645-39-78 12:53:00 Test Item Value Reference Range Interpretation Comments Hct (test code = Hct) 39.1 42.0-54.0 [facility] TylerPpwwdlbKYCPFOHEXN6383-32-07 12:53:00 Test Item Value Reference Range Interpretation Comments MCV (test code = MCV) 95.3 80.0-94.0 [facility] TylerNqyoabeTSBNNFAKOH8130-80-83 12:53:00 Test Item Value Reference Range Interpretation Comments Lymphocytes # (test code = Lymphocytes 1.7 1.0-5.5 #) [facility] TylerEwnrtphWIVQESOKNG0736-55-72 12:53:00 Test Item Value Reference Range Interpretation Comments Segs-Bands # (test code = Segs-Bands #) 3.3 1.5-8.1 [facility] TylerHlgicktSBSWNQZSMD4223-67-84 12:53:00 Test Item Value Reference Range Interpretation Comments Lymphocytes (test code = Lymphocytes) 29.3 20.0-40.0 [facility] TylerKiderxpRZLTBMPRDD5912-02-19 12:53:00 Test Item Value Reference Range Interpretation Comments Monocytes (test code = Monocytes) 9.8 2.0-12.0 [facility] TylerQllrxchBYDWBSUYEB5455-58-85 12:53:00 Test Item Value Reference Range Interpretation Comments Eosinophils (test code = Eosinophils) 1.9 <=4.0 [facility] TylerFsyrtxgLLBUUVUGBH2832-12-23 12:53:00 Test Item Value Reference Range Interpretation Comments Eosinophils # (test code = Eosinophils 0.1 <=0.5 #) [facility] TylerScjnqmjUXMUTSBTIT6313-16-31 12:53:00 Test Item Value Reference Range Interpretation Comments Monocytes # (test code = Monocytes #) 0.6 <=0.8 [facility]BmyggwoJTHEERBOYR7627-14-68 12:53:00 Test Item Value Reference Range Interpretation Comments Segs (test code = Segs) 58.5 45.0-75.0 [facility] HospitalOzowrjzVEDCIWFKKV4237-39-16 12:53:00 Test Item Value Reference Range Interpretation Comments Basophils (test code = Basophils) 0.[address] [facility] YMTCQHV0202-68-32 12:53:00 Test Item Value Reference Range Interpretation Comments CEA (test code = CEA) 2.9 <=3.0 [facility]PvhflfeXLVOKSVZPCLG7571-85-60 12:53:00 Test Item Value Reference Range Interpretation Comments AGAP (test code = AGAP) 8.5 10.0-20.0 [facility]iacGckkkjzNMCJKWUKLDAS7288-19-22 12:53:00 Test Item Value Reference Range Interpretation Comments AGAP (test code = AGAP) 8.5 10.0-20.0 [facility]VpkalwrDPHAHXAFTYWG4842-15-98 12:53:00 Test Item Value Reference Range Interpretation Comments B/C Ratio (test code = B/C Ratio) 23 6-25 [facility]iacMqaltbrXBHBLMFXAYWO8715-55-13 12:53:00 Test Item Value Reference Range Interpretation Comments A/G Ratio (test code = A/G Ratio) 1.0 0.7-1.6 [facility]FcsyqraMEPRNVWOJUWL0522-15-12 12:53:00 Test Item Value Reference Range Interpretation Comments Globulin (test code = Globulin) 3.5 2.7-4.2 [facility]DylaqkrWOFNFMLCEZKP5838-54-20 12:53:00 Test Item Value Reference Range Interpretation Comments eGFR (test code = eGFR) 94 [facility]UpjpvcnBHCKIQGWSPNI6818-81-03 12:53:00 Test Item Value Reference Range Interpretation Comments Bili Total (test code = Bili Total) 0.5 0.2-1.3 [facility]FguzupkYPQPHOMIAPTT8587-73-55 12:53:00 Test Item Value Reference Range Interpretation Comments ALANINE AMINOTRANSFERASE 28 See_Comment [A utomated message] (test code = ALANINE The sys tem which AMINOTRANSFERASE) generated this result transmitted ref erence range: <=65. Th e reference range was not used to int erpret this result as normal/abnormal . [facility]UgvzpjhUVBLUFCHLPQN3384-32-68 12:53:00 Test Item Value Reference Range Interpretation Comments Albumin Lvl (test code = Albumin Lvl) 3.4 3.5-5.0 [facility]iacZseuvlaLDFBMKJZJHKI5722-70-60 12:53:00 Test Item Value Reference Range Interpretation Comments Alk Phos (test code = Alk Phos) 68 39-136 [facility]iacMotknymCFIOZOJJPPMY5985-70-45 12:53:00 Test Item Value Reference Range Interpretation Comments ASPARTATE TRANSAMINASE 20 See_Comment [Aut omated message] (test code = ASPARTATE The s ystem which TRANSAMINASE) generated this result transmitted ref erence range: <=37. Th e reference range was not used to interpr et this result as normal/abnormal . [facility]iacAxpmbfuYQYIOTVQANER4876-29-20 12:53:00 Test Item Value Reference Range Interpretation Comments B/C Ratio (test code = B/C Ratio) 23 6-25 [facility]iacYdorifqQJCFZKSXGHGH0349-13-09 12:53:00 Test Item Value Reference Range Interpretation Comments Calcium Lvl (test code = Calcium Lvl) 8.7 8.5-10.5 [facility]iacNflsrdvKJLWPKTIOEWB5306-17-90 12:53:00 Test Item Value Reference Range Interpretation Comments CO2 (test code = CO2) 30 24-32 [facility]iacMekzslyXOUYVQKBCSYS2969-09-38 12:53:00 Test Item Value Reference Range Interpretation Comments Total Protein (test code = Total 6.9 6.4-8.4 Protein) [facility]UcqmfiyDBGFDBKXPDRL0870-47-22 12:53:00 Test Item Value Reference Range Interpretation Comments Chloride Lvl (test code = Chloride Lvl) 106 95-109 [facility]iacHhhmgryUWFDFEZDDNFR5228-81-91 12:53:00 Test Item Value Reference Range Interpretation Comments Potassium Lvl (test code = Potassium 4.5 3.5-5.1 Lvl) [facility]iacLjhzbkcEKJNCGSVXWLS6946-65-74 12:53:00 Test Item Value Reference Range Interpretation Comments Sodium Lvl (test code = Sodium Lvl) 140 135-145 [facility]KdvsvwkEIMMBBPPTKJH2964-89-24 12:53:00 Test Item Value Reference Range Interpretation Comments Creatinine Lvl (test code = Creatinine 0.77 0.50-1.40 Lvl) [facility]iacTzurxjvLMQOCRJTGEUX3828-24-91 12:53:00 Test Item Value Reference Range Interpretation Comments BUN (test code = BUN) 18 7-22 [facility]iacHrwxxxkQEGZCTDLWGKE0958-89-27 12:53:00 Test Item Value Reference Range Interpretation Comments Glucose Lvl (test code = Glucose Lvl) 121 70-99 [facility] TylerEmpikglHLIYEEDLJK7352-00-13 12:53:00 Test Item Value Reference Range Interpretation Comments MCH (test code = MCH) 33.2 pg 27.0-31.0 [facility]RdhktgjXSCCNPOBTSRD7397-45-46 12:53:00 Test Item Value Reference Range Interpretation Comments A/G Ratio (test code = A/G Ratio) 1.0 0.7-1.6 [facility] TylerEqxjspbAITSMYPRSJ4558-36-26 12:53:00 Test Item Value Reference Range Interpretation Comments MCHC (test code = MCHC) 34.9 32.0-36.0 [facility] TylerYgnqolcWHJBVABJXE9997-87-47 12:53:00 Test Item Value Reference Range Interpretation Comments Platelet (test code = Platelet) 172 133-450 [facility] TylerWavzddtIJQXFOHJZE4008-79-60 12:53:00 Test Item Value Reference Range Interpretation Comments RDW (test code = RDW) 12.8 11.5-14.5 [facility] TylerIcwhgxoABBLYQCPNT1990-07-73 12:53:00 Test Item Value Reference Range Interpretation Comments MPV (test code = MPV) 7.9 7.4-10.4 [facility] TylerJkdhrswDSELXGLNDV1744-10-70 12:53:00 Test Item Value Reference Range Interpretation Comments RBC X 10x6 (test code = RBC X 10x6) 4.10 4.70-6.10 [facility]IwmkanyODUTNUYQOFKE1931-44-09 12:53:00 Test Item Value Reference Range Interpretation Comments Globulin (test code = Globulin) 3.5 2.7-4.2 [facility] TylerDhshdroAVUJXRKDFW8471-61-28 12:53:00 Test Item Value Reference Range Interpretation Comments Hgb (test code = Hgb) 13.6 14.0-18.0 [facility] TylerIpykwguAWMABPNEPF4211-87-66 12:53:00 Test Item Value Reference Range Interpretation Comments WBC X 10x3 (test code = WBC X 10x3) 5.7 3.7-10.4 [facility] TylerOdlcismAXXGKMPZLU1825-31-91 12:53:00 Test Item Value Reference Range Interpretation Comments Hct (test code = Hct) 39.1 42.0-54.0 [facility] TylerUjvknwpROEDPNRCIV1820-43-52 12:53:00 Test Item Value Reference Range Interpretation Comments MCV (test code = MCV) 95.3 80.0-94.0 [facility]2017-09-19 11:37:00 Test Item Value Reference Range Interpretation Comments Iron (test code = Iron) 90 45-160 [facility]2017-09-19 11:37:00 Test Item Value Reference Range Interpretation Comments % Satur Fe (test code = % Satur Fe) 26 12-57 [facility]2017-09-19 11:37:00 Test Item Value Reference Range Interpretation Comments UIBC (test code = UIBC) 252 110-370 [facility]2017-09-19 11:37:00 Test Item Value Reference Range Interpretation Comments TIBC (test code = TIBC) 342 228-428 [facility]2017-09-19 11:37:00 Test Item Value Reference Range Interpretation Comments BUN (test code = BUN) 17 7-22 [facility]2017-09-19 11:37:00 Test Item Value Reference Range Interpretation Comments Creatinine Lvl (test code = Creatinine 0.75 0.50-1.40 Lvl) [facility]2017-09-19 11:37:00 Test Item Value Reference Range Interpretation Comments Potassium Lvl (test code = Potassium 4.2 3.5-5.1 Lvl) [facility]2017-09-19 11:37:00 Test Item Value Reference Range Interpretation Comments Sodium Lvl (test code = Sodium Lvl) 139 135-145 [facility]2017-09-19 11:37:00 Test Item Value Reference Range Interpretation Comments Glucose Lvl (test code = Glucose Lvl) 128 70-99 [facility]2017-09-19 11:37:00 Test Item Value Reference Range Interpretation Comments AGAP (test code = AGAP) 12.2 10.0-20.0 [facility]2017-09-19 11:37:00 Test Item Value Reference Range Interpretation Comments Calcium Lvl (test code = Calcium Lvl) 8.9 8.5-10.5 [facility]2017-09-19 11:37:00 Test Item Value Reference Range Interpretation Comments eGFR (test code = eGFR) 95 [facility]2017-09-19 11:37:00 Test Item Value Reference Range Interpretation Comments CO2 (test code = CO2) 27 24-32 [facility]2017-09-19 11:37:00 Test Item Value Reference Range Interpretation Comments Chloride Lvl (test code = Chloride Lvl) 104 95-109 [facility] VXCRNLIND4380-11-56 11:37:00 Test Item Value Reference Range Interpretation Comments Hgb A1C (test code = Hgb A1C) 6.7 [facility]2017-09-19 11:37:00 Test Item Value Reference Range Interpretation Comments Iron (test code = Iron) 90 45-160 [facility]2017-09-19 11:37:00 Test Item Value Reference Range Interpretation Comments Iron (test code = Iron) 90 45-160 [facility]2017-09-19 11:37:00 Test Item Value Reference Range Interpretation Comments % Satur Fe (test code = % Satur Fe) 26 57 [facility]2017-09-19 11:37:00 Test Item Value Reference Range Interpretation Comments UIBC (test code = UIBC) 252 110-370 [facility]2017-09-19 11:37:00 Test Item Value Reference Range Interpretation Comments TIBC (test code = TIBC) 342 228-428 [facility]2017-09-19 11:37:00 Test Item Value Reference Range Interpretation Comments BUN (test code = BUN) 17 7-22 [facility]2017-09-19 11:37:00 Test Item Value Reference Range Interpretation Comments % Satur Fe (test code = % Satur Fe) 26 1257 [facility]2017-09-19 11:37:00 Test Item Value Reference Range Interpretation Comments Creatinine Lvl (test code = Creatinine 0.75 0.50-1.40 Lvl) [facility]2017-09-19 11:37:00 Test Item Value Reference Range Interpretation Comments Potassium Lvl (test code = Potassium 4.2 3.5-5.1 Lvl) [facility]2017-09-19 11:37:00 Test Item Value Reference Range Interpretation Comments Sodium Lvl (test code = Sodium Lvl) 139 135-145 [facility]2017-09-19 11:37:00 Test Item Value Reference Range Interpretation Comments Glucose Lvl (test code = Glucose Lvl) 128 70-99 [facility]2017-09-19 11:37:00 Test Item Value Reference Range Interpretation Comments AGAP (test code = AGAP) 12.2 10.0-20.0 [facility]2017-09-19 11:37:00 Test Item Value Reference Range Interpretation Comments Calcium Lvl (test code = Calcium Lvl) 8.9 8.5-10.5 [facility]2017-09-19 11:37:00 Test Item Value Reference Range Interpretation Comments eGFR (test code = eGFR) 95 [facility]2017-09-19 11:37:00 Test Item Value Reference Range Interpretation Comments CO2 (test code = CO2) 27 24-32 [facility]2017-09-19 11:37:00 Test Item Value Reference Range Interpretation Comments Chloride Lvl (test code = Chloride Lvl) 104 95-109 [facility] JMNVRYGVD0238-40-38 11:37:00 Test Item Value Reference Range Interpretation Comments Hgb A1C (test code = Hgb A1C) 6.7 [facility]2017-09-19 11:37:00 Test Item Value Reference Range Interpretation Comments UIBC (test code = UIBC) 252 110-370 [facility]2017-09-19 11:37:00 Test Item Value Reference Range Interpretation Comments TIBC (test code = TIBC) 342 228-428 [facility]2017-09-19 11:37:00 Test Item Value Reference Range Interpretation Comments BUN (test code = BUN) 17 7-22 [facility]2017-09-19 11:37:00 Test Item Value Reference Range Interpretation Comments Creatinine Lvl (test code = Creatinine 0.75 0.50-1.40 Lvl) [facility]2017-09-19 11:37:00 Test Item Value Reference Range Interpretation Comments Potassium Lvl (test code = Potassium 4.2 3.5-5.1 Lvl) [facility] XZMRD7459-48-14 11:37:00 Test Item Value Reference Range Interpretation Comments Sodium Lvl (test code = Sodium Lvl) 139 135-145 [facility]2017-09-19 11:37:00 Test Item Value Reference Range Interpretation Comments Glucose Lvl (test code = Glucose Lvl) 128 70-99 [facility] AMOJG4733-83-12 11:37:00 Test Item Value Reference Range Interpretation Comments AGAP (test code = AGAP) 12.2 10.0-20.0 [facility] IMEQZ2184-87-22 11:37:00 Test Item Value Reference Range Interpretation Comments Calcium Lvl (test code = Calcium Lvl) 8.9 8.5-10.5 [facility]2017-09-19 11:37:00 Test Item Value Reference Range Interpretation Comments eGFR (test code = eGFR) 95 [facility] VMNVO8138-16-56 11:37:00 Test Item Value Reference Range Interpretation Comments CO2 (test code = CO2) 27 24-32 [facility] CBASB6890-23-64 11:37:00 Test Item Value Reference Range Interpretation Comments Chloride Lvl (test code = Chloride Lvl) 104 95-109 [facility] OEZMOFNPQ1012-65-46 11:37:00 Test Item Value Reference Range Interpretation Comments Hgb A1C (test code = Hgb A1C) 6.7 [facility]
[2023-08-02] MEDS ORDERED: LOPERAMIDE HCL 2 MG CAPSULE PO PRN (13:28)
[2023-08-02] MEDS ORDERED: DIPHENHYDRAMINE 25 MG TAB/CAP PO PRN (13:28)
[2023-08-02] MEDS ORDERED: ONDANSETRON 4 MG/2 ML VIAL IV PRN (13:28)
[2023-08-02] MEDS ORDERED: ACETAMINOPHEN 325 MG TABLET PO PRN (13:28)
[2023-08-02] MEDS ORDERED: HYDROMORPHONE HCL 1 MG/ML INJ IV PRN (13:29)
[2023-08-02] MEDS ORDERED: POLYETHYL GLY 3350 17 GM/DOSE PO PRN (13:30)
[2023-08-02 14:24] VITALS: BMI 33.5
[2023-08-02] MEDS ORDERED: VANCOMYCIN 2 GM in NA CHLORIDE 0.9% 500 ML IVPB ONE (15:00)
[2023-08-02 15:08] LABS: Absolute Lymphocytes (CBC) 2.3 K/uL (0.7-4.9); Hematocrit 43.3 % (39.6-49.0); Lymphocytes % 32.9 % (15.3-44.8); MCV 95.5 fL (80-100); MPV 7.8 fL (7.6-11.3); Platelets 239 thou/uL (152-406); RBC Red Blood Cell Count 4.54 M/uL (4.33-5.43)
[2023-08-02 15:17] LABS: Protime INR 1.05
[2023-08-02] MEDS ORDERED: PNEUMOCOCCAL VACCINE 0.5 ML IMVAC ONE (16:00)
[2023-08-02 16:11] LABS: ALT/SGPT 26 U/L (16-61); AST/SGOT 18 U/L (15-37); Albumin 3.5 g/dL (3.4-5.0); Alkaline Phosphatase 97 U/L (45-117); BUN Blood Urea Nitrogen 16 mg/dL (7-18); Bicarbonate 30 mEq/L (21-32); Bilirubin Direct 0.2 mg/dL (0-0.2); Bilirubin Indirect, Calculated 0.3 mg/dL (0.2-0.8); Bilirubin Total 0.5 mg/dL (0.2-1.0); Glomerular Filtration Rate 88 ml/min (=/>90); Glucose Level 157 mg/dL (74-106); Magnesium 2.3 mg/dL (1.6-2.4); Phosphorus 3.2 mg/dL (2.5-4.9); Potassium 4.1 mEq/L (3.5-5.1); Sodium Level 142 mEq/L (136-145); Thyroid Stimulating Hormone 0.874 uIU/mL (0.358-3.740)
--- NOTE | 2023-08-02 18:13 | RAD REPORT ---
[facility] 3[facility]18 pm CLINICAL HISTORY: abdominal wall abscess COMPARISON: Chest Pa And Lat (2 Views) dated 10/02/2022; Chest Single View dated 06/07/2022; Chest Sin gle View dated 08/12/2019; CHEST PA AND LAT 2 VIEW dated 01/31/2012 TECHNIQUE: Portable AP view of the chest. FINDINGS: Elevation of the right hemidiaphragm. The lungs are clear apart from stable right basilar atelectasis. . No pneumothorax or effusion. The cardiomediastinal contours are unremarkable. Sequel ae of CABG. IMPRESSION: No acute cardiopulmonary process. Stable findings as above.
[2023-08-02] MEDS: VANCOMYCIN 2 GM in NA CHLORIDE 0.9% 500 ML IVPB SCH (18:46)
[2023-08-02 23:39] LABS: Specific Gravity 1.026 (1.005-1.030); Urine Bacteria None Seen /HPF (<20); Urine Bilirubin NEGATIVE (Negative); Urine Blood Negative (Negative); Urine Clarity Clear (Clear); Urine Color Yellow (Yellow); Urine Glucose 4+ (Over) (Negative); Urine Mucus Slight /HPF (None Seen); Urine Protein TRACE (Negative); Urine RBC <5 /HPF (None Seen); Urine Urobilinogen Normal (Normal); Urine pH 5.5 (5.0-7.0)
[2023-08-03 03:14] LABS: Absolute Lymphocytes (CBC) 2.3 K/uL (0.7-4.9); Hematocrit 38.6 % (39.6-49.0); Lymphocytes % 36.8 % (15.3-44.8); MPV 7.4 fL (7.6-11.3); Platelets 216 thou/uL (152-406); RBC Red Blood Cell Count 4.06 M/uL (4.33-5.43)
[2023-08-03 03:44] LABS: Potassium 3.6 mEq/L (3.5-5.1)
[2023-08-03] MEDS ORDERED: GLUCAGON 1 MG/VIAL IM PRN (07:26)
[2023-08-03] MEDS ORDERED: D50W 25 GM/50 ML SYRINGE IV PRN (07:26)
[2023-08-03] MEDS: INSULIN REGULAR (HUMAN) 100 UNIT/ML SQ SCH ×4 (07:30→21:30)
[2023-08-03] MEDS ORDERED: NA CHLORIDE 0.9% 1,000 ML ONE (09:14)
[2023-08-03] MEDS ORDERED: propofoL 200 MG/20 ML VIAL IV ONE (09:50)
[2023-08-03] MEDS ORDERED: MIDAZOLAM HCL 2 MG/2 ML INJ ONE (09:50)
[2023-08-03] MEDS ORDERED: LIDOCAINE 1% MPF 5 ML VIAL ONE (09:50)
[2023-08-03] MEDS ORDERED: ONDANSETRON 4 MG/2 ML VIAL ONE (09:50)
[2023-08-03] MEDS ORDERED: FENTANYL CITR 100 MCG/2 ML ONE (09:50)
[2023-08-03] MEDS ORDERED: dexAMETHasone 4 MG/ML VIAL ONE (09:51)
[2023-08-03] MEDS ORDERED: KETOROLAC 30 MG/ML INJ ONE (09:51)
--- NOTE | 2023-08-03 10:26 | P.BOP ---
Preoperative diagnosis: abd wall cellultis, abscess, necrotic wound Postoperative diagnosis: same Primary procedure: Excisional debridement necrotic infected wound with abscess drainage Estimated blood loss: < Specimen: necrotic tissue, pus Findings: necrotic tissue, pus Anesthesia: General Complications: None Drain(s): Other (1/3 iodoform) Transferred to: Recovery Room Condition: Good
[2023-08-03 10:45] VITALS: O2SAT 100
--- NOTE | 2023-08-03 11:10 | OP ---
Date of Procedure: 08/03/2023 Surgeon: Benson Robledo MD Preoperative Diagnoses: Abdominal wall cellulitis, abscess, necrotic wound. Postoperative Diagnoses: Abdominal wall cellulitis, abscess, necrotic wound. Procedure: Excisional debridement of necrotic infected wound with abscess drainage, it is about 5 x 5 x 1.5 cm. Findings: Necrotic tissue, pus, complex abscess. Anesthesia: General plus local. Findings: This is the case of a 73-year-old patient, who comes to us complaining of abdominal wall c ellulitis with with some discoloration on the top of the skin consistent with necrotic tis abby. The etiology of that is unknown. The patient was admitted to the hospital and scheduled for a debridement and drainage of a complex abscess with benefits, alternatives, and risks including, but n ot limited to infection, bleeding, damage to adjacent structures, anesthesia complication, nonhealing wound, IN, and even . He understands, signed a consent. He was also advised the importance of wound care. He is also advised the importance of following up with us. This area is very close to the sternum, actually is in part of the incision. He has some previous thoracotomies, although it is the abdomen side of it and since the bone so closed to that area, I have to make sure gabriela t in the next few weeks that he heal properly. If not, we have to continue workup to make sure that the infection has not reached deeper tissues in that case bone. He understood, signed a consent. Procedure In Detail: The patient was brought to the operating room, placed in supine position. Anes thesia was done without complication. Abdominal and lower chest area were prepped and draped in a st erile fashion. A time-out was called. Local anesthesia was applied. Then, after that, using a knif e, we proceeded to remove the necrotic tissue present. When we removed that, we noticed an abscess u nderneath the necrotic tissue present. With the help of a curette, we proceeded to do the debridemen t of this complex multiloculated abscess. The area was irrigated, hemostasis was obtained, and then after that we packed the area with iodoform. The patient tolerated the procedure well, placed on his way to recovery in stable condition. CLEOPATRA/VITA Voice ID: [id number] Report ID: [id number]
--- NOTE | 2023-08-03 11:44 | P.PN ---
Subjective Date of Service: 08/03/23 Chief Complaint: SAW HIM BEFORE SURGERY, STABLE HE IS IN OR TO BE TAKEN FOR SURGERY AT BEDSIDE. Review of Systems 10-point ROS is otherwise unremarkable Physical Examination - Vital Signs Temperature: 97.3 F Blood Pressure: 148/82 Pulse: 63 Respirations: 16 Pulse Ox (%): 95 - Physical Exam General: Mild distress, Obese HEENT: Atraumatic, PERRLA, EOMI Neck: Supple, JVD not distended Respiratory: Clear to auscultation bilaterally, Normal air movement Cardiovascular: Regular rate/rhythm, Normal S1 S2 Gastrointestinal: Normal bowel sounds, No tenderness Musculoskeletal: No tenderness Integumentary: No rashes Neurological: Normal speech, Normal tone, Normal affect Lymphatics: No axilla or inguinal lymphadenopathy - Studies Laboratory Data (last 24 hrs) 08/03/23 08/03/23 08/02/23 02:49 02:49 14:35 WBC 6.30 Hgb 13.4 L D Hct 38.6 L Plt Count 216 PT INR APTT Sodium 137 D 142 Potassium 3.6 4.1 BUN 17 16 Creatinine 0.80 0.91 Glucose 298 H 157 H Phosphorus 3.2 Magnesium 2.3 Total Bilirubin 0.5 AST 18 ALT 26 Alkaline Phosphatase 97 08/02/23 08/02/23 14:35 14:35 WBC 6.90 Hgb 15.0 Hct 43.3 Plt Count 239 PT 11.5 INR 1.05 APTT 35.5 Sodium Potassium BUN Creatinine Glucose Phosphorus Magnesium Total Bilirubin AST ALT Alkaline Phosphatase Microbiology Data (last 24 hrs): 08/02/23 14:45 Blood - Blood Anaerobic Blood Culture - Final 08/02/23 14:55 Blood - Blood Anaerobic Blood Culture - Final Medications List Reviewed: Yes Assessment And Plan - Current Problems (Diagnosis) (1) Abdominal wall abscess Current Visit: Yes Status: Acute Plan: IV VANCO I AND D DC SATURDAY ORAL [facility]X HOME HEALTH. 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 (3) Alzheimer disease Current Visit: No Status: Acute (4) Diabetes Current Visit: No Status: Acute
[2023-08-03] MEDS: VANCOMYCIN 2 GM in NA CHLORIDE 0.9% 500 ML IVPB SCH (13:33)
[2023-08-03] MEDS: RIVAROXABAN 20 MG TABLET PO SCH (16:22)
[2023-08-03] MEDS: carvediloL 3.125 MG TAB PO SCH (16:22)
[2023-08-03] MEDS: AREDS EACH EYE SCH (21:00)
[2023-08-03] MEDS ORDERED: INSULIN GLARGINE 100 UNIT/ML SQ SCH ×2 (21:00)
[2023-08-03] MEDS ORDERED: HOME MED 1 EA UNK (Duloxetine Hcl [Cymbalta] 60 MG Capsule.Dr) PO SCH (21:00)
[2023-08-03] MEDS: PROPYLENE GLYCOL OPTH SCH (21:00)
[2023-08-03] MEDS ORDERED: METFORMIN ER 500 MG TAB PO SCH (21:00)
[2023-08-03] MEDS: EYE OPTH SCH (21:00)
[2023-08-03] MEDS: LOSARTAN POTASSIUM 50 MG TABLET PO SCH (21:00)
[2023-08-03] MEDS: PEG OPTH SCH (21:00)
[2023-08-03] MEDS ORDERED: HOME MED 1 EA UNK (Metformin Hcl [Metformin Hcl] 1,000 MG Tablet) PO SCH (21:00)
[2023-08-03] MEDS: DULOXETINE 30 MG CAP PO SCH (21:27)
[2023-08-03] MEDS: FUROSEMIDE 40 MG TABLET PO SCH (21:28)
[2023-08-03] MEDS: METFORMIN HCL 500 MG TAB PO SCH (21:28)
[2023-08-03] MEDS: RIVASTIGMINE 9.5 MG/24 HR PATCH TD SCH (21:28)
[2023-08-03] MEDS: ATORVASTATIN 40 MG TAB PO SCH (21:28)
[2023-08-04 03:29] LABS: Hematocrit 38.9 % (39.6-49.0); MCV 95.3 fL (80-100); Platelets 227 thou/uL (152-406); RBC Red Blood Cell Count 4.08 M/uL (4.33-5.43)
[2023-08-04] MEDS: carvediloL 3.125 MG TAB PO SCH ×2 (06:18→16:38)
[2023-08-04] MEDS: VANCOMYCIN 2 GM in NA CHLORIDE 0.9% 500 ML IVPB SCH ×2 (06:19→23:00)
[2023-08-04] MEDS: INSULIN REGULAR (HUMAN) 100 UNIT/ML SQ SCH ×4 (08:35→21:00)
[2023-08-04] MEDS: METFORMIN HCL 500 MG TAB PO SCH ×2 (08:35→21:14)
[2023-08-04] MEDS: SPIRONOLACTONE 25 MG TABLET PO SCH (08:35)
[2023-08-04] MEDS: PROPYLENE GLYCOL OPTH SCH ×2 (08:36→21:15)
[2023-08-04] MEDS: FUROSEMIDE 40 MG TABLET PO SCH ×2 (08:36→21:00)
[2023-08-04] MEDS: PEG OPTH SCH ×2 (08:36→21:15)
[2023-08-04] MEDS: EYE OPTH SCH ×2 (08:36→21:15)
[2023-08-04] MEDS: VITAMIN D 5,000 UNIT CAP PO SCH (08:36)
[2023-08-04] MEDS: DULOXETINE 30 MG CAP PO SCH ×2 (08:36→21:14)
[2023-08-04] MEDS ORDERED: HOME MED 1 EA UNK (Spironolactone [Aldactone] 50 MG Tablet) PO SCH (09:00)
[2023-08-04] MEDS: AREDS EACH EYE SCH (09:00)
--- NOTE | 2023-08-04 12:24 | P.PN ---
Subjective Date of Service: 08/04/23 Chief Complaint: STABLE, NO PAIN. Subjective: Improving HE IS IN OR TO BE TAKEN FOR SURGERY AT BEDSIDE. DC IN AM Review of Systems 10-point ROS is otherwise unremarkable Physical Examination - Vital Signs Temperature: 97.3 F Blood Pressure: 164/76 Pulse: 80 Respirations: 17 Pulse Ox (%): 98 - Physical Exam General: Alert, In no apparent distress, Obese HEENT: Atraumatic, PERRLA, EOMI Neck: Supple, JVD not distended Respiratory: Clear to auscultation bilaterally, Normal air movement Cardiovascular: Regular rate/rhythm, Normal S1 S2 Gastrointestinal: Normal bowel sounds, No tenderness Musculoskeletal: No tenderness Integumentary: No rashes Neurological: Normal speech, Normal tone, Normal affect Lymphatics: No axilla or inguinal lymphadenopathy - Studies Laboratory Data (last 24 hrs) 08/04/23 08/04/23 02:50 02:50 WBC 9.10 Hgb 13.5 L Hct 38.9 L Plt Count 227 Sodium 136 Potassium 4.0 BUN 21 H Creatinine 1.00 Glucose 262 H Microbiology Data (last 24 hrs): 08/03/23 10:14 Wound - Abscess Gram Stain - Final 08/03/23 10:14 Wound - Abscess Gram Stain - Final 08/02/23 14:55 Blood - Blood Anaerobic Blood Culture - Final 08/02/23 14:45 Blood - Blood Anaerobic Blood Culture - Final Medications List Reviewed: Yes Assessment And Plan - Current Problems (Diagnosis) (1) Abdominal wall abscess Current Visit: Yes Status: Acute Plan: IV VANCO I AND D DC SATURDAY ORAL [facility]X HOME HEALTH. 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 RAISE INSULIN GLUOSE IS NOT CONTROLLED DIET IS POOR AT HOME. IS WC BOUND AND HE IS DEMENTED. (3) Alzheimer disease Current Visit: No Status: Acute (4) Diabetes Current Visit: No Status: Acute
[2023-08-04] MEDS: RIVAROXABAN 20 MG TABLET PO SCH (16:38)
[2023-08-04] MEDS ORDERED: INSULIN GLARGINE 100 UNIT/ML SQ SCH (21:00)
[2023-08-04] MEDS: RIVASTIGMINE 9.5 MG/24 HR PATCH TD SCH (21:13)
[2023-08-04] MEDS: ATORVASTATIN 40 MG TAB PO SCH (21:14)
[2023-08-04] MEDS ORDERED: LOSARTAN POTASSIUM 50 MG TABLET ONE (22:48)
[2023-08-04] MEDS: LOSARTAN POTASSIUM 50 MG TABLET PO SCH (22:54)
[2023-08-05 02:49] LABS: Hematocrit 38.1 % (39.6-49.0); Lymphocytes % 47.1 % (15.3-44.8); MCV 94.5 fL (80-100); MPV 7.9 fL (7.6-11.3); Platelets 224 thou/uL (152-406); RBC Red Blood Cell Count 4.03 M/uL (4.33-5.43)
[2023-08-05 03:05] LABS: Potassium 3.7 mEq/L (3.5-5.1)
[2023-08-05] MEDS: carvediloL 3.125 MG TAB PO SCH (05:50)
[2023-08-05] MEDS: INSULIN REGULAR (HUMAN) 100 UNIT/ML SQ SCH ×2 (07:30→11:30)
[2023-08-05] MEDS: FUROSEMIDE 40 MG TABLET PO SCH (08:29)
[2023-08-05] MEDS: SPIRONOLACTONE 25 MG TABLET PO SCH (08:30)
[2023-08-05] MEDS: METFORMIN HCL 500 MG TAB PO SCH (08:31)
[2023-08-05] MEDS: VITAMIN D 5,000 UNIT CAP PO SCH (08:32)
[2023-08-05] MEDS: DULOXETINE 30 MG CAP PO SCH (08:32)
[2023-08-05] MEDS: PROPYLENE GLYCOL OPTH SCH (08:33)
[2023-08-05] MEDS: PEG OPTH SCH (08:33)
[2023-08-05] MEDS: EYE OPTH SCH (08:33)
[2023-08-05] MEDS ORDERED: AREDS PO SCH (09:00)
[2023-08-05] MEDS ORDERED: D10W 125 ML IV PRN (09:09)
[2023-08-05 11:31] VITALS: BP 117/64; TEMP 97.1
[2023-08-05] MEDS ORDERED: REPAGLINIDE 0.5 MG TABLET PO SCH (12:00)
[2023-08-05] MEDS ORDERED: PRANDIN PO SCH (12:00)
--- NOTE | 2023-08-05 12:54 | P.DS ---
Admission Date: 08/02/23 Discharge Date: 08/05/23 Disposition: DC HOME/HOME HEALTH CARE Discharge Condition: FAIR Reason for Admission: STABLE, NO PAIN. - Problems (1) Abdominal wall abscess Current Visit: Yes Status: Acute (2) Coronary artery disease due to type 2 diabetes mellitus Current Visit: Yes Status: Chronic (3) Alzheimer disease Current Visit: No Status: Acute (4) Diabetes Current Visit: No Status: Acute Hospital Course: [facility] IS DOING GREAT. HE IS STABLE TO GO HOME WITH HH. I CALLED IN BACTRIM DS BID FOR 10 DAYS. CULTURE PENDING. I SUSPECT MRSA. Vital Signs/Physical Exam: Temp Pulse Resp BP Pulse Ox 97.1 F 64 17 117/64 96 08/05/23 11:29 08/05/23 11:29 08/05/23 11:29 08/05/23 11:29 08/05/23 11:29 Laboratory Data at Discharge: WBC 8.50 thou/uL (4.3-10.9) 08/05/23 01:35 Hgb 13.2 g/dL (13.6-17.9) L 08/05/23 01:35 Hct 38.1 % (39.6-49.0) L 08/05/23 01:35 Plt Count 224 thou/uL (152-406) 08/05/23 01:35 PT 11.5 SECONDS (9.5-12.5) 08/02/23 14:35 INR 1.05 08/02/23 14:35 APTT 35.5 SECONDS (24.3-36.9) 08/02/23 14:35 Sodium 139 mEq/L (136-145) 08/05/23 01:35 Potassium 3.7 mEq/L (3.5-5.1) 08/05/23 01:35 BUN 22 mg/dL (7-18) H 08/05/23 01:35 Creatinine 0.92 mg/dL (0.70-1.30) 08/05/23 01:35 Glucose 87 mg/dL (74-106) 08/05/23 01:35 Phosphorus 3.2 mg/dL (2.5-4.9) 08/02/23 14:35 Magnesium 2.3 mg/dL (1.6-2.4) 08/02/23 14:35 Total Bilirubin 0.5 mg/dL (0.2-1.0) 08/02/23 14:35 AST 18 U/L (15-37) 08/02/23 14:35 ALT 26 U/L (16-61) 08/02/23 14:35 Alkaline Phosphatase 97 U/L (45-117) 08/02/23 14:35 Home Medications: Duloxetine HCl [Cymbalta] 60 mg PO BID 05/31/16 Krill/Om-3/Dha/Epa/Phospho/Ast [Megared [place]-3 Krill 300 mg] 800 mg PO [id number] 05/31/16 ARIPiprazole [Aripiprazole] 2 mg PO [id number] 06/08/22 Areds 2 1 tab PO BID 06/08/22 Atorvastatin Calcium [Lipitor] 40 mg PO BEDTIME 06/08/22 Carvedilol [Coreg] 6.25 mg PO BID 06/08/22 Losartan Potassium [Cozaar] 50 mg PO BEDTIME 06/08/22 Rivaroxaban [Xarelto] 20 mg PO DAILY AT SUPPER 06/08/22 Rivastigmine Patch [Exelon 9.5 mg Patch] 4.6 mg TOP BEDTIME 06/08/22 Furosemide [Lasix*] 40 mg PO BID 08/02/23 Metformin HCl 1,000 mg PO BID 08/02/23 Propylene Glycol/Peg 400/Pf [Systane 0.3-0.4% Eye Drop] 1 each OP BID 08/02/23 Repaglinide [Prandin] 2 mg PO SEECOM 08/02/23 Spironolactone [Aldactone] 50 mg PO DAILY 08/02/23 Insulin Glargine,Hum.rec.anlog [Semglee] 75 unit SQ BEDTIME ml 08/05/23 Sulfamethoxazole/Trimethoprim [Sulfamethoxazole-Tmp Ds Tablet] 1 each PO BID #20 08/05/23 New Medications: Sulfamethoxazole/Trimethoprim [Sulfamethoxazole-Tmp Ds Tablet] 1 each PO BID #20 Followup: Bill Mitchell MD [Primary Care Provider] -
[2023-08-05] MEDS ORDERED: carvediloL 6.25 MG TAB PO SCH (18:00)
--- NOTE | 2023-08-08 10:46 | EKG ---
Test Date: 2023-08-02 Test Time: 17:21:27 Integrity Specialist: SAL MEASUREMENT RESULTS: Intervals: Rate: 78 OK: QRSD: 92 QT: 396 QTc: 451 [place]: P: OK: QRS: 93 T: 102 INTERPRETIVE STATEMENTS: Atrial fibrillation Rightward axis ST & T wave abnormality, consider anterolateral ischemia or digitalis effect Abnormal ECG Compared to ECG 06/07/2022 21:00:58 Right-axis deviation now present ST (T wave) deviation now present Possible ischemia now present T-wave abnormality no longer present Prolonged QT interval no longer present Electronically Signed On 08-08-23 10:42:42 SMT OPERATOR by Jesus Ordonez
== END 2023-08-05 16:21 | disposition home health service (06) | DRG 572 ==
LOC: 2ND 12:39
PROVIDERS: ADMIT Internal Medicine; ATTEND Internal Medicine
PROC: 0JB80ZZ Excision of Abdomen Subcutaneous Tissue and Fascia, Open Approach (ICD-10-PCS; principal; 2023-08-03 10:00)
DX: L03.311 Cellulitis of abdominal wall (principal); L02.211 Cutaneous abscess of abdominal wall; E11.9 Type 2 diabetes mellitus without complications; G30.9 Alzheimer's disease, unspecified; F02.80 Dementia in other diseases classified elsewhere, unspecified severity, without behavioral disturbance, psychotic disturbance, mood disturbance, and anxiety; I25.10 Atherosclerotic heart disease of native coronary artery without angina pectoris; B95.62 Methicillin resistant Staphylococcus aureus infection as the cause of diseases classified elsewhere; Z79.01 Long term (current) use of anticoagulants; Z79.4 Long term (current) use of insulin; Z79.899 Other long term (current) drug therapy
CPT/HCPCS: 36415; 71046; 80048; 80076; 80202; 81001; 82306; 82607; 82947; 83735; 84100; 84443; 85025; 85610; 85730; 87040; 87070; 87075; 87205; 88304; 93005; 94010; J1100; J1815; J2001; J2250; J2405; J2704; J3010; J7030; J7040

== ENCOUNTER 2024-05-01 06:36 | Day surgery (SDC) | payer OTHER, MEDICARE ==
[2024-04-29 15:10] LABS: Absolute Eosinophils 0.2 K/uL (0-0.5); Absolute Lymphocytes (CBC) 2.7 K/uL (0.7-4.9); Absolute Monocytes 0.6 K/uL (0.1-1.3); Absolute Neutrophil 2.9 K/uL (1.8-8.0); Basophils % 0.6 % (0-1.3); Eosinophils % 2.6 % (0-4.4); Hematocrit 40.9 % (39.6-49.0); Hemoglobin 13.6 g/dL (13.6-17.9); Lymphocytes % 42.2 % (15.3-44.8); MCH 31.5 pg (27.0-35.0); MCHC 33.2 g/dL (32.0-36.0); MPV 7.6 fL (7.6-11.3); Monocytes % 9.7 % (3.3-12.3); Neutrophils % 44.9 % (41.7-73.7); Platelets 200 thou/uL (152-406); RBC Red Blood Cell Count 4.31 M/uL (4.33-5.43)
[2024-04-29 15:17] LABS: PT Prothrombin Time 11.6 SECONDS (9.4-12.5); PTT, Activated Partial Thromb 34.1 SECONDS (24.3-36.9); Protime INR 1.04
[2024-04-29 15:26] LABS: Anion Gap 8.1 mEq/L (5.0-15.0); Potassium 4.1 mEq/L (3.5-5.1)
--- NOTE | 2024-04-29 15:39 | RAD REPORT ---
EXAM DESCRIPTION: RAD - Chest Pa And Lat (2 Views) - 04/29/2024 3:30 pm CLINICAL HISTORY: pre op COMPARISON: Chest Pa And Lat (2 Views) dated 08/02/2023; Chest Pa And Lat (2 Views) dated 10/02/2022; Chest Single View dated 06/07/2022; Chest Single View dated 08/12/2019 FINDINGS: Lines: None. Lungs: No evidence of edema or pneumonia. Chronic elevation of the right hemidiaphragm. Pleural: No significant pleural effusions or pneumothorax. Cardiac: Mild cardiomegaly. Mediastinum: Within normal limits. Bones: No acute fractures. Sternotomy. Other: None IMPRESSION: No acute cardiopulmonary disease. Chronic elevation of the right hemidiaphragm.
[2024-05-01] MEDS ORDERED: NA CHLORIDE 0.9% 1,000 ML ONE (06:52)
[2024-05-01] MEDS ORDERED: CEFAZOLIN SODIUM 2 GM/VIAL ONE (06:52)
[2024-05-01] MEDS ORDERED: propofoL 200 MG/20 ML VIAL IV ONE (07:07)
[2024-05-01] MEDS ORDERED: LIDOCAINE 2% MPF 5 ML VIAL ONE (07:07)
[2024-05-01] MEDS ORDERED: ONDANSETRON 4 MG/2 ML VIAL ONE (07:07)
[2024-05-01] MEDS ORDERED: FENTANYL CITR 100 MCG/2 ML ONE (07:08)
[2024-05-01] MEDS ORDERED: MIDAZOLAM HCL 2 MG/2 ML INJ ONE (07:08)
[2024-05-01] MEDS ORDERED: BUPIVACAINE 0.5% PF 10 ML VIAL ONE (07:12)
[2024-05-01] MEDS: CEFAZOLIN SODIUM 2 GM/VIAL IVPB ONE (07:30)
[2024-05-01] MEDS ORDERED: EPHEDRINE SULF 50 MG/ML VIAL ONE (07:52)
[2024-05-01] MEDS: BUPIVACAINE 0.5% PF 10 ML VIAL SQ ONE ×2 (07:53)
[2024-05-01] MEDS ORDERED: HYDROCODONE/APAP 7.5/325 MG TAB PO PRN (08:51)
--- NOTE | 2024-05-01 08:55 | P.OP ---
Date of Service: 05/01/24 Preop diagnosis: Right fourth and fifth finger mass Postop diagnosis: Same Procedure performed: Wide excision right fourth and fifth finger mass with layered closure, each wound approximately 2.5 x 0.75 cm Surgeon: Quinton Jo MD Emergency Management Specialist: Shawna KOENIG Estimated blood loss: Minimal Specimen: Right fourth and fifth finger masses Findings: Likely ganglion cyst on the right fifth finger and a benign fibroma on the right fourth finger Anesthesia: General Complications: None Drains: None Fluids and blood products: Nonapplicable Disposition: Recovery room Operative note: Patient brought to the OR and placed supine position. General anesthesia began. Patient prepped and draped in usual sterile fashion. Marcaine 0.5% infiltrated locally for postop pain control. Approximately a 2.5 x 0.75 cm ellipse of skin incision made on the medial aspect of the fourth finger and the lateral aspect of the fifth finger near the webspace. Both masses identified and dissected free from the surrounding tissue. The fifth finger mass appeared to be a ganglion cyst and the fourth finger mass appeared to be a fibroma. Both masses were sent to pathology as specimen. 4-0 Vicryl was used to tie off the base of the ganglion cyst and suture-ligate it. 4-0 Vicryl was also used to reapproximate subcutaneous tissue. 5-0 and 4-0 Prolene were used to close skin. Sterile dressing applied. Patient awakened and taken to recovery room in good general condition. CC: Dr. Mitchell's office
[2024-05-01 09:03] VITALS: O2SAT 98
[2024-05-01 09:10] VITALS: BP 134/68; TEMP 97
== END 2024-05-01 09:43 | disposition home or self-care (01) ==
LOC: OR 06:36
PROVIDERS: ATTEND Surgery
PROC: 0JBJ0ZZ Excision of Right Hand Subcutaneous Tissue and Fascia, Open Approach (ICD-10-PCS; principal; 2024-05-01 07:30)
DX: C44.622 Squamous cell carcinoma of skin of right upper limb, including shoulder (principal); M67.441 Ganglion, right hand
CPT/HCPCS: 11423 ×2; 85025; 80048; 36415; 85610; 82947 ×2; 88305; 85730; 71046; J2704; J2001; J3010; J2405; J7030; J2250

== ENCOUNTER 2024-11-17 09:27 | Inpatient (IN) | payer OTHER, MEDICARE ==
--- NOTE | 2024-11-17 10:10 | RAD REPORT ---
EXAMINATION: CT HEAD WITHOUT CONTRAST CT CERVICAL SPINE WITHOUT CONTRAST CLINICAL INDICATION: Male, 74 years old. fall, confusion TECHNIQUE: Axial CT images from the skull base to the vertex without intravenous contrast. Axial CT i mages through the cervical spine were obtained without intravenous contrast. Sagittal and coronal reformatted images were created from the data set. Coronal and sagittal reformatted images were creat ed from the data set. One or more of the following dose reduction techniques were used: Automated exposure control, adjustment of the mA and/or kV according to patient size, and/or iterative reconstr uction. Unless otherwise specified, incidental findings do not require dedicated imaging follow-up. [id number]. COMPARISON: No prior exam. FINDINGS: Head: INTRACRANIAL: No acute intracranial hemorrhage. No hydrocephalus. No mass effect or midline shift. Mi ld chronic small vessel ischemic changes.Age advanced cerebral atrophy. VASCULATURE: No visualized abnormalities in the arteries or dural venous sinuses. SCALP/SKULL: No calvarial fracture identified. No acute soft tissue abnormality. SINUSES: The visualized paranasal sinuses and mastoid air cells are predominantly clear. No significa nt mastoid fluid. Cervical spine: ALIGNMENT: The cervical spine has normal alignment without scoliosis or spondylolisthesis. BONE: Vertebral body heights are maintained. No aggressive osseous lesions. DEGENERATIVE: Multilevel cervical spondylosis with evidence of bilateral neural foraminal narrowing. No high grade central spinal stenosis. There is probably moderate central spinal stenosis at the C4-5 and C5-6 levels. SOFT TISSUE: No significant abnormalities in the soft tissue of the neck. The visualized lung apices are clear. Carotid artery calcifications. IMPRESSION: No acute intracranial abnormality. No acute fracture or traumatic malalignment of the cervical spine.
--- NOTE | 2024-11-17 10:37 | RAD REPORT ---
EXAM: Chest Single View HISTORY: 74 years Male confusion COMPARISON: None. FINDINGS: LUNGS/PLEURA: The lungs are clear. No pleural effusions or pneumothorax. No pulmonary edema. Chronica lly elevated right hemidiaphragm. CARDIAC/MEDIASTINUM: Stable enlargement. UPPER ABDOMEN: No significant abnormality. BONES: Sternotomy. No acute abnormality. LINES/TUBES/OTHER: N/A IMPRESSION: No evidence of acute cardiopulmonary disease.
--- NOTE | 2024-11-17 10:51 | RAD REPORT ---
EXAMINATION: Elbow Left 3 View CLINICAL INDICATION: Male, 74 years old. PAIN COMPARISON: No prior exam. VIEWS: Three views FINDINGS: No acute fracture. No malalignment/dislocation. No large elbow effusion. Limited by positioning. Radial head and olecranon spurring. Other: n/a IMPRESSION: No acute osseous abnormality.
--- NOTE | 2024-11-17 10:52 | RAD REPORT ---
EXAMINATION: Hip Left 2 View CLINICAL INDICATION: Male, 74 years old. fall COMPARISON: No prior exam. FINDINGS: No acute fracture. Left hip arthroplasty which is intact. No malalignment/dislocation. No significant focal degenerative change. Other: n/a IMPRESSION: No acute osseous abnormality.
[2024-11-17 11:13] LABS: Absolute Basophils 0.1 K/uL (0-0.5); Absolute Eosinophils 0.2 K/uL (0-0.5); Absolute Lymphocytes (CBC) 0.7 K/uL (0.7-4.9); Absolute Monocytes 0.9 K/uL (0.1-1.3); Absolute Neutrophil 17.5 K/uL (1.8-8.0); Basophils % 0.3 % (0-1.3); Hematocrit 37.3 % (39.6-49.0); Hemoglobin 12.8 g/dL (13.6-17.9); Lymphocytes % 3.8 % (15.3-44.8); MCH 32.9 pg (27.0-35.0); MCHC 34.5 g/dL (32.0-36.0); MCV 95.5 fL (80-100); MPV 10.8 fL (7.6-11.3); Monocytes % 4.6 % (3.3-12.3); Neutrophils % 90.3 % (41.7-73.7); Nucleated RBC Absolute Count 0.1 (0-0); Nucleated Red Blood Cells % 0.3 % (0-0); Platelets 139 thou/uL (152-406); Red Cell Distribution Width 13.2 % (12.1-15.2)
[2024-11-17 11:38] LABS: Albumin 2.1 g/dL (3.4-5.0); Albumin/Globulin Ratio 0.4 (1.1-1.8); Bilirubin Direct 0.3 mg/dL (0-0.2); Bilirubin Indirect, Calculated 0.3 mg/dL (0.2-0.8); Bilirubin Total 0.6 mg/dL (0.2-1.0); Globulin 4.8 g/dL (2.3-3.5); Protein, Total 6.9 g/dL (6.4-8.2); Troponin High Sensitivity 1407.8 pg/mL (<58.9)
[2024-11-17] MEDS ORDERED: INSULIN REGULAR (HUMAN) 100 UNIT/ML ONE (12:56)
[2024-11-17] MEDS ORDERED: CEFTRIAXONE 2000 MG/VIAL ONE (12:56)
[2024-11-17] MEDS ORDERED: NA CHLORIDE 0.9% 100 ML ONE (12:57)
[2024-11-17] MEDS ORDERED: NA CHLORIDE 0.9% 1,000 ML ONE ×2 (12:57→15:10)
--- NOTE | 2024-11-17 13:55 | RAD REPORT ---
EXAMINATION: CT Abdomen Pelvis Wo Contrast CLINICAL INDICATION: Male, 74 years old. carline, leukocytosis TECHNIQUE: CT abdomen and pelvis was performed, without IV contrast, as per department protocol. Axia l, sagittal and coronal reconstructions were obtained. One or more of the following dose reduction techniques were used: Automated exposure control, adjustment of the mA and kV according to the patien t size, and iterative reconstruction. Unless otherwise specified, incidental findings do not require dedicated imaging follow-up. COMPARISON: No prior exam. FINDINGS: The lack of intravenous contrast limits the sensitivity of this exam for evaluation of solid visceral organs, vascular structures, and retroperitoneum. Breathing motion artifact along the upper abdomen also limits evaluation. LOWER CHEST: Elevation of the right hemidiaphragm. Right basilar platelike atelectatic changes. LIVER: Normal in size and contour. No focal lesion. BILIARY SYSTEM: Multiple small dependent calcified stones near the gallbladder neck. SPLEEN: Normal size. No focal lesion. PANCREAS: No mass, ductal dilation, or aurelio-pancreatic fluid. ADRENALS: Normal; no mass. KIDNEYS AND URETERS: Normal size and contour. No hydronephrosis. URINARY BLADDER: Normal contour. GASTROINTESTINAL TRACT: No evidence of bowel obstruction, significant free fluid, free air or abscess . Sequelae of partial proximal colectomy and enterocolic anastomosis APPENDIX: Normal appendix. LYMPH NODES: No lymphadenopathy. MUSCULOSKELETAL: No acute or suspicious osseous abnormality. Left hip arthroplasty in place, resultin g in streak artifact which limits evaluation. ADDITIONAL FINDINGS: None. IMPRESSION: No acute abnormalities in the abdomen or pelvis, allowing for limitations mentioned above. Cholelithiasis and other incidental findings as above.
[2024-11-17 14:15] LABS: Specific Gravity 1.019 (1.005-1.030); Sqamous Epithelial <5 /HPF (None Seen); Urine Bacteria <20 /HPF (<20); Urine Bilirubin NEGATIVE (Negative); Urine Blood Trace (Negative); Urine Clarity Extremely Turbid (Clear); Urine Color Yellow (Yellow); Urine Culture Reflex Order NOT NEEDED; Urine Glucose 4+ (Over) (Negative); Urine Ketones NEGATIVE (Negative); Urine Microscopic Reflex YN ORDER UMIC; Urine Mucus Slight /HPF (None Seen); Urine Nitrite NEGATIVE (Negative); Urine Protein TRACE (Negative); Urine RBC <5 /HPF (None Seen); Urine Urobilinogen Normal (Normal)
--- NOTE | 2024-11-17 14:15 | EDPHYS ---
Physician Documentation [facility] Name: Ehsan Emmanuel Age: 74 yrs Sex: Male : 1950 Arrival Date: 11/17/2024 Time: 09:27 Bed 14 Private MD: ED Physician Arash Arellano HPI: 11/17 10:22 This 74 yrs old Male presents to ER via EMS with complaints of fall, confusion. rt 10:22 History limited due to advanced dementia. Patient presents to the ED with a witnessed rt fall. Patient landed onto his left side, causing a skin tear to the elbow. Per reports, patient is more confused, was noted to be hyperglycemic. Patient's who manages his medicines was admitted to the hospital yesterday. No other reported complaints, symptoms are moderate in severity, no other aggravating or alleviating factors.. Historical: - Allergies: :55 No Known Allergies; db - PMHx: :55 Atrial fibrillation; coronary atherosclerosis; depressive disorder; db Hypercholesterolemia; Hypertensive disorder; IDDM; - PSHx: :55 Coronary artery bypass graft; db - Immunization history:: Adult Immunizations unknown. - Infectious Disease History:: Denies. - Social history:: Smoking status: Patient denies any tobacco usage or history of. - Family history:: not pertinent. ROS: 10:22 Unable to obtain ROS due to baseline dementia, rt Exam: 10:22 Constitutional: This is a well developed, well nourished patient who is awake, alert, rt and in no acute distress. Head/Face: Normocephalic, atraumatic. Chest/axilla: Normal chest wall appearance and motion. Nontender with no deformity. No lesions are appreciated. Cardiovascular: Regular rate and rhythm with a normal S1 and S2. No gallops, murmurs, or rubs. Normal PMI, no JVD. No pulse deficits. Respiratory: Lungs have equal breath sounds bilaterally, clear to auscultation and percussion. No rales, rhonchi or wheezes noted. No increased work of breathing, no retractions or nasal flaring. Abdomen/GI: Soft, non-tender, with normal bowel sounds. No distension or tympany. No guarding or rebound. No evidence of tenderness throughout. Neuro: Awake and alert, GCS 15, oriented to person, place, time, and situation. Cranial nerves II-XII grossly intact. Motor strength 5/5 in all extremities. Sensory grossly intact. Cerebellar exam normal. Normal gait. 10:22 Musculoskeletal/extremity: Skin tear to the left elbow with minor tenderness, no other external signs of trauma on the extremities. 11:37 ECG was reviewed by the Attending Physician. rt 15:58 ECG was reviewed by the Attending Physician. rt Vital Signs: 09:44 BP 112 / 62; Pulse 75; Resp 18; Temp 98.5; Pulse Ox 99% ; db 10:35 BP 114 / 71; Pulse 70; Resp 18; Pulse Ox 95% ; db 11:00 BP 128 / 70; Pulse 76; Resp 18; Pulse Ox 95% on R/A; db 11:30 BP 119 / 72; Pulse 75; Resp 18; Pulse Ox 96% ; db 12:30 BP 127 / 69; Pulse 82; Resp 18; Pulse Ox 98% on R/A; db 13:30 BP 122 / 67; Pulse 82; Resp 18; Pulse Ox 95% ; db 14:00 BP 165 / 71; Pulse 89; Resp 18; Pulse Ox 99% on R/A; db 15:00 BP 188 / 151; Pulse 108; Resp 23; Pulse Ox 91% on R/A; db 15:20 BP 196 / 130; Pulse 124; db 15:29 Temp 98.7(R); db 15:30 BP 175 / 87; Pulse 140; Resp 24; Pulse Ox 96% on 2 lpm NC; db 15:40 BP 159 / 74; Pulse 88; db 18:55 Weight 113.85 kg; ty 15:00 PLACED ON NC 2 L O2 db 15:20 DR. ARELLANO NOTIFIED OF PATIENT. SEE MAR FOR MEDICATION ADMINISTRATION. db MDM: 09:40 Medical Screening Exam initiated rt 15:58 Differential Diagnosis Fall, NSTEMI, RHODA, electrolyte disturbance, dysrhythmia. Data rt reviewed: vital signs, nurses notes, lab test result(s), EKG, radiologic studies. Consideration of Admission/Observation Patient was admitted/placed on observation. Management of patient was discussed with the following: Dish Person: Discussed with cardiology to the hospital.. I considered the following discharge prescriptions or medication management in the emergency department Medications were administered in the Emergency Department. See MAR. Independent interpretation of the following test(s) in the Emergency Department CT Scan: My interpretation is No intracranial hemorrhage syndrome interpretation of CT scan images. Care significantly affected by the following chronic conditions: Atrial fibrillation. Counseling: I had a detailed discussion with the patient and/or guardian regarding the historical points, exam findings, and any diagnostic results supporting the discharge/admit diagnosis, lab results, radiology results, the need for further work-up and treatment in the hospital. Response to treatment: the patient's symptoms have mildly improved after treatment. 11/17 09:46 Order name: Basic Metabolic Panel; Complete Time: 11:45 rt 11/17 09:46 Order name: CBC with Diff; Complete Time: 11:45 rt 11/17 09:46 Order name: LFT's; Complete Time: 11:45 rt 11/17 09:46 Order name: Troponin HS; Complete Time: 11:45 rt 11/17 12:35 Order name: Blood Culture Adult (2) rt 11/17 12:35 Order name: CMP; Complete Time: 15:22 rt 11/17 12:35 Order name: Lactate w/ 2H reflex if indic.; Complete Time: 15:22 rt 11/17 12:35 Order name: Protime (+inr); Complete Time: 15:22 rt 11/17 12:35 Order name: Ptt, Activated; Complete Time: 15:22 rt 11/17 13:58 Order name: Urinalysis w/ reflexes; Complete Time: 15:22 db 11/17 14:55 Order name: Ghost Lactate-NO COLLECT Timer; Complete Time: 16:56 EDMS 11/17 18:22 Order name: Lactate Sepsis 2 HR Follow-up; Complete Time: 18:23 EDMS 11/17 19:12 Order name: Protime (+INR); Complete Time: 19:27 EDMS 11/17 19:17 Order name: PTT, Activated Partial Thromb; Complete Time: 19:27 EDMS 11/17 09:46 Order name: XRAY Chest (1 view); Complete Time: 10:52 rt 11/17 09:46 Order name: CT Head C Spine; Complete Time: 10:52 rt 11/17 09:46 Order name: Hip Left 2 View XRAY; Complete Time: 10:52 rt 11/17 09:46 Order name: Elbow Left 3 View XRAY; Complete Time: 10:52 rt 11/17 12:35 Order name: CT Abd/Pelvis - Without Contrast; Complete Time: 13:56 rt 11/17 12:35 Order name: EKG; Complete Time: 12:35 rt 11/17 15:09 Order name: CONS Physician Consult EDWA 11/17 09:46 Order name: Cardiac monitoring; Complete Time: 11:12 rt 11/17 09:46 Order name: EKG - Nurse/Tech; Complete Time: 11:12 rt 11/17 09:46 Order name: IV Saline Lock; Complete Time: 11:12 rt 11/17 09:46 Order name: Labs collected and sent; Complete Time: 11:12 rt 11/17 09:46 Order name: O2 Per Protocol; Complete Time: 11:12 rt 11/17 09:46 Order name: O2 Sat Monitoring; Complete Time: 11:12 rt 11/17 12:35 Order name: Accucheck; Complete Time: 13:29 rt 11/17 12:35 Order name: IV Saline Lock - Large Bore; Complete Time: 13:29 rt 11/17 12:35 Order name: Vital Signs; Complete Time: 13:29 rt EC:37 Rate is 75 beats/min. Rhythm is regular, A fib with No ectopy. QRS [place] is Normal. QRS rt interval is normal. No Q waves. 15:58 Rate is 125 beats/min. Rhythm is irregularly irregular, A fib with No ectopy. QRS [place] rt is Normal. QRS interval is normal. QT interval is normal. No Q waves. Administered Medications: 13:10 Drug: NS 0.9% IV 1000 ml IV at 1000 ml once; to be given as a bolus over 60 minutes db Route: IV; Rate: 1000 ml; Site: left forearm; 14:15 Follow up: Response: No adverse reaction; IV Status: Completed infusion; IV Intake: db 1000ml 13:20 Drug: Insulin Regular Human IVP 10 units IVP once {Co-Signature: me1 (india Heredia RN).} Route: IVP; Site: right forearm; 14:28 Drug: Rocephin - Rocephin (cefTRIAXone) IVPB 2 grams IVPB once over 30 mins; (mix in db 100 mL NS) Route: IVPB; Infused Over: 30 mins; Site: right hand; 15:00 Follow up: Response: No adverse reaction; IV Status: Completed infusion; IV Intake: db 100ml 15:15 Drug: NS IV 0.45 % 1000 ml IV at 75 ml/hr continuous Route: IV; Rate: 75 ml/hr; Site: right hand; 15:30 Drug: Diltiazem IVP 20 mg IVP once; Over 2 minutes Route: IVP; Site: right hand; db 18:03 Drug: Heparin ([place] Drip) 12 units/kg/hr - ([place] [address] units, D5W IV 500 ml) IV at db calculated rate Per protocol; Max initial rate 1000 units/hr {Co-Signature: ll1 (Kenia Salinas RN).} Route: IV; Rate: calculated rate; Site: right hand; Disposition Summary: 11/17/24 14:14 Hospitalization Ordered Notes: Hospitalization Status: Inpatient Admission rt Provider: Bill Mitchell rt Condition: Stable rt Problem: new rt Symptoms: are unchanged rt Bed/Room Type: Standard rt Location: Telemetry/MedSurg (Inpatient)(11/17/24 18:13) bd Room Assignment: [facility](11/17/24 18:13) Diagnosis - Generalized weakness rt - Mechanical fall rt - Acute kidney injury rt - NSTEMI rt - Leukocytosis rt Forms: - Medication Reconciliation Form rt - SBAR form rt - Leadership Thank You Letter rt Critical care time excluding procedures: 16:05 Critical care time: Bedside Care: 30 minutes, Consultation: 10 minutes. Total time: 40 rt minutes Signatures: Dispatcher [employer] EDMS Luciana Collier Kelly, RN RN kb3 Sandy Russo RN RN db Arash Arellano MD MD rt Hermelinda Heredia RN me1 Kenia Salinas RN ll1 Corrections: (The following items were deleted from the chart) 09:47 09:47 Head C Spine MPR Wo Con+CT.RAD.BRZ ordered. EDMS EDMS 09:47 09:47 Hip Left 2 View+RAD.RAD.BRZ ordered. EDMS EDMS 09:47 09:47 Elbow Left 3 View+RAD.RAD.BRZ ordered. EDMS EDMS 17:24 14:14 Telemetry/MedSurg (Inpatient) rt kb3 17:24 14:14 rt kb3 18:13 17:24 [facility] ER HOLD kb3 bd 18:13 17:24 ERHOLD- kb3 bd
--- NOTE | 2024-11-17 14:15 | ER ---
Nurse's Notes [facility] Name: Ehsan Emmanuel Age: 74 yrs Sex: Male : 1950 Arrival Date: 11/17/2024 Time: 09:27 Bed 14 Private MD: Diagnosis: Generalized weakness;Mechanical fall;Acute kidney injury;NSTEMI;Leukocytosis Presentation: 11/17 09:44 Chief complaint: EMS states: FALL THIS AM WITNESSED BY GRAND DAUGHTER. PT MORE CONFUSED db PER FAMILY SINCE SATURDAY. BG 556. SKIN TEAR TO LEFT ELBOW. 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 Coronavirus screen: Client denies travel out of the [place] in the last 14 days. At this time, the client does not indicate any symptoms associated with coronavirus-19. Ebola Screen: Patient negative for fever greater than or equal to 101.5 degrees Fahrenheit, and additional compatible Ebola Virus Disease symptoms Patient denies exposure to infectious person. Patient denies travel to an Ebola-affected area in the 21 days before illness onset. No symptoms or risks identified at this time. Initial Sepsis Screen: Does the patient meet any 2 criteria? No. Patient's initial sepsis screen is negative. Does the patient have a suspected source of infection? No. Patient's initial sepsis screen is negative. Risk Assessment: Do you want to hurt yourself or someone else? Patient reports no desire to harm self or others. Onset of symptoms was November 17, 2024. 09:44 Method Of Arrival: EMS: [facility] db 09:44 Acuity: IZABELLA 2 db Triage Assessment: 09:55 General: Appears in no apparent distress. comfortable, Behavior is calm, cooperative. db Pain: Complains of pain in left elbow. Neuro: Level of Consciousness is awake, alert, obeys commands, Oriented to person, place. Respiratory: Airway is patent Respiratory effort is even, unlabored, Respiratory pattern is regular, symmetrical. Derm: Wound noted left arm. Historical: - Allergies: : No Known Allergies; db - PMHx: : Atrial fibrillation; coronary atherosclerosis; depressive disorder; db Hypercholesterolemia; Hypertensive disorder; IDDM; - PSHx: : Coronary artery bypass graft; db - Immunization history:: Adult Immunizations unknown. - Infectious Disease History:: Denies. - Social history:: Smoking status: Patient denies any tobacco usage or history of. - Family history:: not pertinent. Screenin:[facility] ED Fall Risk Assessment (Adult) History of falling in the last 3 months, db including since admission Yes- single mechanical fall (1 pt) Confusion or Disorientation Yes (5 pts) Intoxicated or Sedated No (0 pts) Impaired Gait No (0 pts) Mobility Assist Device Used No (0 pt) Altered Elimination No (0 pt) Score/Fall Risk Level 3 or more points = High Risk Oriented to surroundings, Maintained a safe environment, Hourly rounding (assess needs \T\ fall precautionary measures) done. Abuse screen: Denies threats or abuse. Denies injuries from another. Nutritional screening: No deficits noted. Tuberculosis screening: No symptoms or risk factors identified. Assessment: 10:25 Reassessment: PATIENT IS STILL IN RADIOLOGY. db 12:17 Reassessment: Patient appears in no apparent distress at this time. Patient and/or db family updated on plan of care and expected duration. Pain level reassessed. FAMILY IS AT PATIENT BEDSIDE. General: Appears in no apparent distress. comfortable, Behavior is calm, cooperative. Neuro: Level of Consciousness is awake, alert, obeys commands, Oriented to person. Respiratory: Airway is patent Respiratory effort is even, unlabored, Respiratory pattern is regular, symmetrical. 14:30 Reassessment: Patient appears in no apparent distress at this time. Patient and/or db family updated on plan of care and expected duration. Pain level reassessed. FAMILY IS AT BEDSIDE. 15:30 Reassessment: REPEAT EKG DONE DUE TO PATIENT BECAME INCREASINGLY AGITATED AND ANXIOUS. db NOTED PULSE IN 130S. NOTIFIED DR. ARELLANO. SEE MAR FOR MEDICATION ADMINISTRATION. Vital Signs: 09:44 BP 112 / 62; Pulse 75; Resp 18; Temp 98.5; Pulse Ox 99% ; db 10:35 BP 114 / 71; Pulse 70; Resp 18; Pulse Ox 95% ; db 11:00 BP 128 / 70; Pulse 76; Resp 18; Pulse Ox 95% on R/A; db 11:30 BP 119 / 72; Pulse 75; Resp 18; Pulse Ox 96% ; db 12:30 BP 127 / 69; Pulse 82; Resp 18; Pulse Ox 98% on R/A; db 13:30 BP 122 / 67; Pulse 82; Resp 18; Pulse Ox 95% ; db 14:00 BP 165 / 71; Pulse 89; Resp 18; Pulse Ox 99% on R/A; db 15:00 BP 188 / 151; Pulse 108; Resp 23; Pulse Ox 91% on R/A; db 15:20 BP 196 / 130; Pulse 124; db 15:29 Temp 98.7(R); db 15:30 BP 175 / 87; Pulse 140; Resp 24; Pulse Ox 96% on 2 lpm NC; db 15:40 BP 159 / 74; Pulse 88; db 18:55 Weight 113.85 kg; ty 15:00 PLACED ON NC 2 L O2 db 15:20 DR. ARELLANO NOTIFIED OF PATIENT. SEE MAR FOR MEDICATION ADMINISTRATION. db Vitals: 15:20 Cardiac Rhythm Assessment Irregular Atrial fibrillation. db ED Course: 09:31 Patient arrived in ED. bd 09:31 Arash Arellaon MD is Attending Physician. rt 09:52 Sandy Russo, RN is Primary Nurse. db 09:[address] via stretcher. db 09:55 Triage completed. db 09:56 Arm band placed on Patient placed in an exam room. db 10:00 CT Head C Spine In Process Unspecified. EDMS 10:00 Initial lab(s) drawn, by me, sent to lab. Maintain EMS IV. Dressing intact. Good blood db return noted. Site clean \T\ dry. Gauge \T\ site: 20 G LFA. Flushed with 10 mL NS. 10:29 XRAY Chest (1 view) In Process Unspecified. EDMS 10:29 Hip Left 2 View XRAY In Process Unspecified. EDMS 10:30 Elbow Left 3 View XRAY In Process Unspecified. EDMS 11:23 Patient has correct armband on for positive identification. Bed in low position. Call db light in reach. Side rails up X2. Client placed on continuous cardiac and pulse oximetry monitoring. NIBP monitoring applied. phototypesetting equipment monitor on. Pulse ox on. NIBP on. Warm blanket given. Pillow given. 11:42 Notified ED physician of a critical lab result(s). GLUCOSE 499, TROP 1407. db 13:04 CT Abd/Pelvis - Without Contrast In Process Unspecified. EDMS 13:55 Hernandez cath inserted, using sterile technique, 16 Fr., by me, balloon inflated, returned db rohan urine. Patient tolerated well. 13:55 First set of blood cultures drawn. db 14:14 Bill Mitchell MD is Hospitalizing Provider. rt 14:20 Initial lab(s) drawn, Second set of blood cultures drawn by me. Inserted saline lock: db 22 gauge in right hand, using aseptic technique. Blood collected. Flushed with 10 mL NS. Administered Medications: 13:10 Drug: NS 0.9% IV 1000 ml IV at 1000 ml once; to be given as a bolus over 60 minutes db Route: IV; Rate: 1000 ml; Site: left forearm; 14:15 Follow up: Response: No adverse reaction; IV Status: Completed infusion; IV Intake: db 1000ml 13:20 Drug: Insulin Regular Human IVP 10 units IVP once {Co-Signature: me1 (india Heredia RN).} Route: IVP; Site: right forearm; 14:28 Drug: Rocephin - Rocephin (cefTRIAXone) IVPB 2 grams IVPB once over 30 mins; (mix in db 100 mL NS) Route: IVPB; Infused Over: 30 mins; Site: right hand; 15:00 Follow up: Response: No adverse reaction; IV Status: Completed infusion; IV Intake: db 100ml 15:15 Drug: NS IV 0.45 % 1000 ml IV at 75 ml/hr continuous Route: IV; Rate: 75 ml/hr; Site: db right hand; 15:30 Drug: Diltiazem IVP 20 mg IVP once; Over 2 minutes Route: IVP; Site: right hand; db 18:03 Drug: Heparin ([place] Drip) 12 units/kg/[place] - ([place] [address] units, D5W IV 500 ml) IV at db calculated rate Per protocol; Max initial rate 1000 units/hr {Co-Signature: ll1 (Kenia Salinas RN).} Route: IV; Rate: calculated rate; Site: right hand; Intake: 14:15 IV: 1000ml; Total: 1000ml. db 15:00 IV: 100ml; Total: 1100ml. db Outcome: 14:14 Decision to Hospitalize by Provider. rt 19:48 Admitted to Med/surg accompanied by nurse, via stretcher, rg5 19:48 Condition: stable 19:48 Instructed on the need for admit, 19:48 Patient left the ED. rg5 Signatures: Dispatcher [employer] DAVYMS Luciana Collier Danielle, RN RN db Arash Arellano MD MD rt Nile Stokes Rommel, RN RN rg5 Hermelinda Heredia RN id1 Kenia Salinas RN 1
[2024-11-17 14:38] LABS: PT Prothrombin Time 12.7 SECONDS (10.0-13.0); PTT, Activated Partial Thromb 33.1 SECONDS (24.3-36.9); Protime INR 1.12
[2024-11-17 14:50] LABS: Albumin 2.4 g/dL (3.4-5.0); Albumin/Globulin Ratio 0.5 (1.1-1.8); Anion Gap 15.4 mEq/L (5.0-15.0); Bilirubin Total 0.7 mg/dL (0.2-1.0); Globulin 5.2 g/dL (2.3-3.5); Potassium 4.4 mEq/L (3.5-5.1); Protein, Total 7.6 g/dL (6.4-8.2)
[2024-11-17] MEDS: NACHLORIDE 0.45% 1,000 ML IV SCH ×2 (15:15→18:39)
[2024-11-17] MEDS ORDERED: NACHLORIDE 0.45% 1,000 ML IV ONE (15:32)
[2024-11-17] MEDS ORDERED: dilTIAZem HCL 25 MG/5 ML VIAL IV ONE (15:32)
--- NOTE | 2024-11-17 16:36 | P.CNS ---
Date of Consult: 11/17/24 Chief Complaint: NSTEMI History of Present Illness: Patient with PMH of CAD s/p CABG (JOHN-LAD, SVG-OM jump to RPDA), DD, AF, HTN, Dementia, DM, presented with altered mental status, per daughter patient has not been feeling good for last few days, weak, hardly walk, altered, complain of right hip pain, no other complains, manage his medications but she is recently admitted to the hospital. Allergies No Known Allergies Allergy (Verified 04/29/24 14:44) Home medications list reviewed: Yes Home Medications: Duloxetine HCl [Cymbalta] 60 mg PO BID 05/31/16 Areds 2 1 tab PO BID 06/08/22 Atorvastatin Calcium [Lipitor] 40 mg PO BEDTIME 06/08/22 Carvedilol [Coreg] 6.25 mg PO BID 06/08/22 Losartan Potassium [Cozaar] 50 mg PO BEDTIME 06/08/22 Rivaroxaban [Xarelto] 20 mg PO DAILY AT SUPPER 06/08/22 Furosemide [Lasix*] 40 mg PO BID 08/02/23 Metformin HCl 1,000 mg PO BID 08/02/23 Propylene Glycol/Peg 400/Pf [Systane 0.3-0.4% Eye Drop] 1 each OP BID 08/02/23 Repaglinide [Prandin] 2 mg PO SEECOM 08/02/23 Spironolactone [Aldactone] 50 mg PO DAILY 08/02/23 Insulin Glargine,Hum.rec.anlog [Lantus] 65 unit SQ BEDTIME 04/29/24 - Past Medical/Surgical History Diabetic: Yes -: A. fib on chronic anticoagulation -: CAD status post CABG -: Diabetes mellitus type 2insulin-dependent -: Hypertension -: Hyperlipidemia -: sleep apnea -: dementia -: colon CA -: CHF -: CABG 2002 -: Left arm had some veins removed 2002 -: Cataract lens implants to GHAN[place]YAM eyes -: turp -: Colon CA-segment of bowel removed 2016 -: L hip RIF 2019 Psychosocial/ Personal History: Patient is retired lives at home with his - Family History Mother Medical History: Heart disease Father Medical History: Cancer - Social History Alcohol use: No CD- Drugs: No Caffeine use: No Review of Systems is unable to be obtained (patient is altered) Physical Examination General: Mild distress HEENT: Atraumatic, PERRLA, Mucous membr. moist/pink, EOMI, Sclerae nonicteric Neck: Supple, 2+ carotid pulse no bruit, No LAD, Without JVD or thyroid abnormality Respiratory: Clear to auscultation bilaterally, Normal air movement Cardiovascular: Regular rate/rhythm, Normal S1 S2 Gastrointestinal: Normal bowel sounds, No tenderness Musculoskeletal: No tenderness Integumentary: No rashes Neurological: Normal gait, Normal speech, Normal tone, Normal affect Lymphatics: No axilla or inguinal lymphadenopathy Laboratory Data (last 24 hrs) 11/17/24 11/17/24 11/17/24 14:20 14:20 10:55 WBC 19.40 H Hgb 12.8 L Hct 37.3 L Plt Count 139 L PT 12.7 H INR 1.12 APTT 33.1 Sodium 127 L Potassium 4.4 BUN 75 H Creatinine 2.74 H Glucose 474 H* Total Bilirubin 0.7 AST 34 ALT 28 Alkaline Phosphatase 191 H 11/17/24 10:55 WBC Hgb Hct Plt Count PT INR APTT Sodium 126 L Potassium 5.0 BUN 66 H Creatinine 2.74 H Glucose 499 H* Total Bilirubin 0.6 AST 34 ALT 25 Alkaline Phosphatase 171 H - Problems (1) NSTEMI (non-ST elevated myocardial infarction) Current Visit: Yes Status: Acute Plan: EKG shows ST depression inferior and lateral leads, patient had a stress test at cardiology office almost 4 months ago that shown fixed inferoapical defect, echo was normal EF, hard to assess wall motions with DD, patient troponin leak can be type 2 due to acute kidney injury, hyperglycemia and sepsis. would recommend medical management at this point until patient condition is better keep troponin trend until peak and down trending ASA 81 mg daily Lipitor 40 mg daily Heparin drip ACS protocol Get Echo (2) Atrial fibrillation Current Visit: Yes Status: Acute Plan: Patient is currently in sinus rhythm, monitor on tele hold Xarelto and keep on Heparin drip. (3) Chronic diastolic heart failure Current Visit: Yes Status: Acute Plan: Patient looks euvolemic on exam with RHODA. Hold losartan, aldactone and gentle hydration.
[2024-11-17] MEDS ORDERED: HEPARIN/D5W 25,000 UNIT/500 ML BAG IV ONE (18:00)
[2024-11-17] MEDS: HEPARIN 10,000 UNIT/10 ML VIAL IV ONE (18:39)
[2024-11-17] MEDS ORDERED: REPAGLINIDE 2 MG PO SCH (18:45)
--- NOTE | 2024-11-17 18:48 | P.HP ---
Patient History Date of Service: 11/17/24 Reason for admission: CONFUSED, WEAK History of Present Illness: CORDELL IS A DIABETIC WITH MODERATE DEMENTIA AND IS NOT ABLE TO TAKE CARE OF HIMSELF. 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 HE COMES WITH CONFUSION AND WEAKNESS. HE IS FOUND TO HAVE HYPERGLYCEMIA, ACUTE RENAL FAILURE AND SEPSIS. HIS IS IN THE HOSPITAL FOR TWO DAYS WITH PE. Allergies No Known Allergies Allergy (Verified 04/29/24 14:44) Home medications list reviewed: Yes Home Medications: Duloxetine HCl [Cymbalta] 60 mg PO BID 05/31/16 Areds 2 1 tab PO BID 06/08/22 Atorvastatin Calcium [Lipitor] 40 mg PO BEDTIME 06/08/22 Carvedilol [Coreg] 6.25 mg PO BID 06/08/22 Losartan Potassium [Cozaar] 50 mg PO BEDTIME 06/08/22 Rivaroxaban [Xarelto] 20 mg PO DAILY AT SUPPER 06/08/22 Furosemide [Lasix*] 40 mg PO BID 08/02/23 Metformin HCl 1,000 mg PO BID 08/02/23 Propylene Glycol/Peg 400/Pf [Systane 0.3-0.4% Eye Drop] 1 each OP BID 08/02/23 Repaglinide [Prandin] 2 mg PO SEECOM 08/02/23 Spironolactone [Aldactone] 50 mg PO DAILY 08/02/23 Insulin Glargine,Hum.rec.anlog [Lantus] 65 unit SQ BEDTIME 04/29/24 - Past Medical/Surgical History Diabetic: Yes -: A. fib on chronic anticoagulation -: CAD status post CABG -: Diabetes mellitus type 2insulin-dependent -: Hypertension -: Hyperlipidemia -: sleep apnea -: dementia -: colon CA -: CHF -: CABG 2002 -: Left arm had some veins removed 2002 -: Cataract lens implants to [place] eyes -: turp -: Colon CA-segment of bowel removed 2016 -: L hip RIF 2019 Psychosocial/ Personal History: Patient is retired lives at home with his - Family History Mother -: Heart disease Father -: Cancer - Social History Alcohol use: No CD- Drugs: No Caffeine use: No Review of Systems 10-point ROS is otherwise unremarkable General: Weakness, Malaise, As per HPI Physical Examination - Vital Signs Temperature: 98.5 F Blood Pressure: 158/65 Pulse: 93 Respirations: 24 Pulse Ox (%): 99 - Physical Exam General: Oriented x1, Cooperative, Moderate distress, Obese, Other (DEHYDRATION. ) HEENT: Atraumatic, PERRLA, Mucous membr. moist/pink, EOMI, Sclerae nonicteric Neck: Supple, 2+ carotid pulse no bruit, No LAD, Without JVD or thyroid abn ormality Respiratory: Clear to auscultation bilaterally, Normal air movement Cardiovascular: Regular rate/rhythm, Normal S1 S2 Gastrointestinal: Normal bowel sounds, No tenderness Musculoskeletal: No tenderness Integumentary: No rashes Neurological: Normal gait, Normal speech, Normal strength at 5/5 x4 extr, Normal tone, Normal affect Lymphatics: No axilla or inguinal lymphadenopathy - Studies Laboratory Data (last 24 hrs) 11/17/24 11/17/24 11/17/24 14:20 14:20 10:55 WBC 19.40 H Hgb 12.8 L Hct 37.3 L Plt Count 139 L PT 12.7 H INR 1.12 APTT 33.1 Sodium 127 L Potassium 4.4 BUN 75 H Creatinine 2.74 H Glucose 474 H* Total Bilirubin 0.7 AST 34 ALT 28 Alkaline Phosphatase 191 H 11/17/24 10:55 WBC Hgb Hct Plt Count PT INR APTT Sodium 126 L Potassium 5.0 BUN 66 H Creatinine 2.74 H Glucose 499 H* Total Bilirubin 0.6 AST 34 ALT 25 Alkaline Phosphatase 171 H Assessment and Plan - Problems (Diagnosis) (1) Septic shock Current Visit: Yes Status: Acute Plan: SOURCE IS UNCLEAR HE MAY HAVE PNEUMONIA THAT IS NOT VISIBLE WITH DEHYDRATION. CT ABDOMEN IS NEGATIVE. IV MERREM BC2. WILL CONTINUE FU. (2) Acute renal failure Current Visit: Yes Status: Acute Plan: IV HYDRATION DAILY LAB. (3) Elevated troponin Current Visit: Yes Status: Acute Plan: MAY BE FALSE HIGH. DR. DANIELSON ON CASE IV HEPARIN STARTED. 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 IS NOT ABLE TO HANDLE HIS MEDICAL ISSUES. - Advance Directives Does patient have a Living Will: No Does patient have a Durable POA for Healthcare: No
[2024-11-17 19:12] LABS: PT Prothrombin Time 13.8 SECONDS (10.0-13.0); PTT, Activated Partial Thromb 35.2 SECONDS (24.3-36.9); Protime INR 1.22
[2024-11-17 19:17] VITALS: BMI 31.4
[2024-11-17] MEDS: carvediloL 6.25 MG TAB PO SCH (20:30)
[2024-11-17] MEDS: ATORVASTATIN 40 MG TAB PO SCH (20:30)
[2024-11-17] MEDS: Meropenem 1,000 MG in NA CHLORIDE 0.9% 100 ML IV SCH (20:30)
[2024-11-17] MEDS: INSULIN GLARGINE 100 UNIT/ML SQ SCH (20:31)
[2024-11-17] MEDS: LOSARTAN POTASSIUM 50 MG TABLET PO SCH (20:31)
[2024-11-18] MEDS: HEPARIN/D5W 25,000 UNIT/500 ML BAG IV SCH (00:47)
[2024-11-18 02:54] LABS: Absolute Eosinophils 0.1 K/uL (0-0.5); Absolute Lymphocytes (CBC) 0.6 K/uL (0.7-4.9); Absolute Monocytes 0.7 K/uL (0.1-1.3); Absolute Neutrophil 14.3 K/uL (1.8-8.0); Basophils % 0.2 % (0-1.3); Eosinophils % 0.7 % (0-4.4); Hematocrit 35.8 % (39.6-49.0); Hemoglobin 12.4 g/dL (13.6-17.9); MCH 32.5 pg (27.0-35.0); MCHC 34.5 g/dL (32.0-36.0); MCV 94.2 fL (80-100); MPV 10.1 fL (7.6-11.3); Monocytes % 4.2 % (3.3-12.3); Neutrophils % 90.9 % (41.7-73.7); Nucleated Red Blood Cells % 0.1 % (0-0); Platelets 127 thou/uL (152-406); Red Cell Distribution Width 13.2 % (12.1-15.2)
[2024-11-18 05:07] LABS: Band Neutrophils 41 % (0-1); Blood Morphology Comment NOT SEEN (NOT SEEN); Differential Total Cells Count 100; Lymphocytes 2 % (15-42); Monocytes 2 % (0-10); Platelet Estimate ADEQ; Segmented Neutrophils 55 % (40-80); Toxic Granulation 1+
[2024-11-18 06:22] LABS: MPV 9.7 fL (7.6-11.3); Platelets 121 thou/uL (152-406)
[2024-11-18 08:30] LABS: Anion Gap 17.6 mEq/L (5.0-15.0); Potassium 4.6 mEq/L (3.5-5.1)
[2024-11-18] MEDS: carvediloL 12.5 MG TAB PO SCH (09:09)
[2024-11-18] MEDS: Mupirocin NASAL 2 APPL/1 GM TUBE NAS SCH (09:11)
--- NOTE | 2024-11-18 12:38 | P.PN ---
Subjective Date of Service: 11/18/24 Chief Complaint: CONFUSED, WEAK Subjective: No new changes Review of Systems 10-point ROS is otherwise unremarkable Physical Examination - Vital Signs Temperature: 98.3 F Blood Pressure: 208/95 Pulse: 84 Respirations: 20 Pulse Ox (%): 95 - Physical Exam General: Alert, In no apparent distress HEENT: Atraumatic, PERRLA, EOMI Neck: Supple, JVD not distended Respiratory: Clear to auscultation bilaterally, Normal air movement Cardiovascular: Regular rate/rhythm, Normal S1 S2 Gastrointestinal: Normal bowel sounds, No tenderness Musculoskeletal: No tenderness Integumentary: No rashes Neurological: Normal speech, Normal tone, Normal affect Lymphatics: No axilla or inguinal lymphadenopathy - Studies Laboratory Data (last 24 hrs) 11/17/24 11/17/24 14:20 14:20 PT 12.7 H INR 1.12 APTT 33.1 Sodium 127 L Potassium 4.4 BUN 75 H Creatinine 2.74 H Glucose 474 H* Total Bilirubin 0.7 AST 34 ALT 28 Alkaline Phosphatase 191 H Medications List Reviewed: Yes Assessment And Plan - Current Problems (Diagnosis) (1) NSTEMI (non-ST elevated myocardial infarction) Current Visit: Yes Status: Acute Plan: EKG shows ST depression inferior and lateral leads, patient had a stress test at cardiology office almost 4 months ago that shown fixed inferoapical defect, echo was normal EF, hard to assess wall motions with DD, patient troponin leak plateaued which can be type 2 due to acute kidney injury, hyperglycemia and sepsis. would recommend medical management at this point until patient condition is better ASA 81 mg daily Lipitor 40 mg daily Heparin drip ACS protocol Get Echo (2) Atrial fibrillation Current Visit: Yes Status: Acute Plan: Patient is currently in AF, Rate controlled, monitor on tele continue Coreg 25 mg BID hold Xarelto and keep on Heparin drip. (3) Chronic diastolic heart failure Current Visit: Yes Status: Acute Plan: Patient looks euvolemic on exam with RHODA. Hold aldactone and gentle hydration.
--- NOTE | 2024-11-18 17:18 | P.PN ---
Subjective Date of Service: 11/18/24 Chief Complaint: CONFUSED, WEAK Subjective: Improving HE IS SOMEWHAT MORE AWAKE AND ORIENTED. STILL VERY WEAK AND NOT ORIENTED TO TIME,PLACE OR PERSON. Review of Systems 10-point ROS is otherwise unremarkable General: Weakness Physical Examination - Vital Signs Temperature: 98.1 F Blood Pressure: 146/83 Pulse: 84 Respirations: 20 Pulse Ox (%): 96 - Physical Exam General: Mild distress, Confused, Delirious, Obese HEENT: Atraumatic, PERRLA, EOMI Neck: Supple, JVD not distended Respiratory: Clear to auscultation bilaterally, Normal air movement Cardiovascular: Regular rate/rhythm, Normal S1 S2 Gastrointestinal: Normal bowel sounds, No tenderness Musculoskeletal: No tenderness Integumentary: No rashes Neurological: Normal speech, Normal tone, Normal affect Lymphatics: No axilla or inguinal lymphadenopathy - Studies Medications List Reviewed: Yes Assessment And Plan - Current Problems (Diagnosis) (1) Septic shock Current Visit: Yes Status: Acute Plan: SOURCE IS UNCLEAR HE MAY HAVE PNEUMONIA THAT IS NOT VISIBLE WITH DEHYDRATION. CT ABDOMEN IS NEGATIVE. IV MERREM BC2. WILL CONTINUE FU. WBC IS DOWN. CREAT IS DOWN CONT MERREM. NO SOURCE OF INFECTION YET . I WILL DO CT CHEST WHEN CREAT IS DOWNTO 1.4 OR LESS. (2) Acute renal failure Current Visit: Yes Status: Acute Plan: IV HYDRATION DAILY LAB. CREAT DOWN IMPROVED. (3) Elevated troponin Current Visit: Yes Status: Acute Plan: MAY BE FALSE HIGH. DR. DANIELSON ON CASE IV HEPARIN STARTED. 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 IS NOT ABLE TO HANDLE HIS MEDICAL ISSUES.
--- NOTE | 2024-11-18 19:23 | RAD REPORT ---
EXAMINATION: ONE VIEW CHEST XR CLINICAL INDICATION: PICC placement confirmation TECHNIQUE: Frontal chest projection is submitted. Examination is limited by patient positioning and t echnique. COMPARISON: 11/17/2024 FINDINGS: The right PICC line appears folded upon itself in the region of the right axillary/subclavian vein. R ecommend repositioning. The chest is otherwise unchanged.
--- NOTE | 2024-11-18 20:17 | RAD REPORT ---
EXAMINATION: ONE VIEW CHEST XR CLINICAL INDICATION: PICC line placement TECHNIQUE: Frontal chest projection is submitted. Examination is limited by patient positioning and t echnique. COMPARISON: Earlier study same date FINDINGS: Left-sided PICC line is in place. Tip is appears to be just entering the SVC.. No significant changes otherwise seen in the chest.
[2024-11-18] MEDS: INSULIN REGULAR (HUMAN) 100 UNIT/ML SQ SCH (21:06)
[2024-11-19 04:47] LABS: MPV 9.4 fL (7.6-11.3); Platelets 136 thou/uL (152-406)
[2024-11-19 05:02] LABS: Anion Gap 8.8 mEq/L (5.0-15.0); Potassium 3.8 mEq/L (3.5-5.1)
--- NOTE | 2024-11-19 09:34 | RAD REPORT ---
EXAM: CT Chest For Pe Angio TECHNIQUE: CT angiogram of the chest was performed following intravenous contrast administration, inc luding sagittal and coronal as well as maximum intensity projection reformats. One or more of the following dose reduction techniques were used: Automated exposure control, adjustment of the mA and k V according to patient size, and iterative reconstruction. Unless otherwise specified, incidental findings do not require dedicated imaging follow-up. INDICATION: HYPOXIA COMPARISON: 08/12/2019. FINDINGS: LINES/TUBES: None. PULMONARY ARTERIES: Main pulmonary arteries are normal in caliber. No filling defects within the pul monary arteries to suggest pulmonary embolus. LUNGS AND AIRWAYS: Elevation of the right hemidiaphragm. Mild platelike right more than left basilar atelectasis. The lungs and central airways are normal without focal abnormality. PLEURA: Trace bilateral layering effusions. No pneumothorax. HEART AND MEDIASTINUM: Mild cardiomegaly. The visualized thyroid gland is normal. No mediastinal, hil ar, or axillary lymphadenopathy. Heart is unremarkable. No pericardial effusion. SOFT TISSUES AND BONES: No acute osseous abnormality. No significant soft tissue finding. UPPER ABDOMEN: Dependent small gallstones. IMPRESSION: No evidence of acute central pulmonary emboli. Trace bilateral layering effusions. Mild cardiomegaly. Findings may reflect mild central congestion. Cholelithiasis.
[2024-11-19] MEDS: NACHLORIDE 0.45% 1,000 ML IV SCH (10:34)
--- NOTE | 2024-11-19 11:14 | ECHO ---
HEIGHT: 6 ft 3 in WEIGHT: 251 lb 0 oz DATE OF STUDY: 11/18/[address]: Daniel Kevin MD 2-DIMENSIONAL: YES M.MODE: YES DOPPLER: YES COLOR FLOW: YES TDS: PORTABLE: YES DEFINITY: BUBBLE STUDY: DIAGNOSIS: ELEVATED TROPONIN CARDIAC HISTORY: CATHERIZATION: YES SURGERY: YES PROSTHETIC VALVE: NO PACEMAKER: NO MEASUREMENTS (cm) DIASTOLIC (NORMALS) SYSTOLIC (NORMALS) IVSd 1.0 (0.6-1.2) LA Diam 4.8 (1.9-4.0) LVEF 50-55% LVIDd 4.9 (3.5-5.7) LVIDs 3.5 (2.0-3.5) %FS 30% LVPWd 1.2 (0.6-1.2) Ao Diam 3.0 (2.0-3.7) 2 DIMENSIONAL ASSESSMENT: RIGHT ATRIUM: NORMAL LEFT ATRIUM: NORMAL RIGHT VENTRICLE: NORMAL LEFT VENTRICLE: NORMAL TRICUSPID VALVE: MODERATE TRICUSPID REGURGITATION MITRAL VALVE: MILD MITRAL REGURGITATION PULMONIC VALVE: NORMAL AORTIC VALVE: NORMAL PERICARDIAL EFFUSION: NONE AORTIC ROOT: NORMAL LEFT VENTRICULAR WALL MOTION: NORMAL DOPPLER/COLOR FLOW: DIASTOLIC DYSFUNCTION COMMENTS: 1. NORMAL LEFT VENTRICULAR SYSTOLIC FUNCTION, EJECTION FRACTION 50-55%, NORMAL WALL MOTION 2. DIASTOLIC DYSFUNCTION 3. MODERATE TRICUSPID REGURGITATION 4. MODERATE PULMONARY HYPERTENSION (RIGHT VENTRICULAR SYSTOLIC PRESSURE 45-50 mmHg) 5. MILD ELEVATED FILLING PRESSURE (RIGHT ATRIUM 5-10 mmHg) TECHNOLOGIST: QUAN ACUÑA [facility]
--- NOTE | 2024-11-19 12:11 | P.PN ---
Subjective Date of Service: 11/19/24 Chief Complaint: CONFUSED, WEAK Subjective: No new changes, No C/O voiced, Doing well Review of Systems 10-point ROS is otherwise unremarkable Physical Examination - Vital Signs Temperature: 97.6 F Blood Pressure: 147/81 Pulse: 63 Respirations: 22 Pulse Ox (%): 100 - Physical Exam General: Alert, In no apparent distress HEENT: Atraumatic, PERRLA, EOMI Neck: Supple, JVD not distended Respiratory: Clear to auscultation bilaterally, Normal air movement Cardiovascular: Regular rate/rhythm, Normal S1 S2 Gastrointestinal: Normal bowel sounds, No tenderness Musculoskeletal: No tenderness Integumentary: No rashes Neurological: Normal speech, Normal tone, Normal affect Lymphatics: No axilla or inguinal lymphadenopathy - Studies Microbiology Data (last 24 hrs): 11/17/24 13:55 Blood - Blood Blood Culture Gram Stain - Final 11/17/24 13:55 Blood - Blood Gram Stain - Final 11/17/24 14:20 Blood - Blood Blood Culture Gram Stain - Final 11/17/24 14:20 Blood - Blood Gram Stain - Final Medications List Reviewed: Yes Assessment And Plan - Current Problems (Diagnosis) (1) NSTEMI (non-ST elevated myocardial infarction) Current Visit: Yes Status: Acute Plan: EKG shows ST depression inferior and lateral leads, patient had a stress test at cardiology office almost 4 months ago that shown fixed inferoapical defect, echo was normal EF, hard to assess wall motions with DD, repeated echo in hospital shows nor aEF, normal wills motion, patient troponin leak plateaued which can be type 2 due to acute kidney injury, hyperglycemia and sepsis. would recommend medical management at this point until patient condition is better ASA 81 mg daily Lipitor 40 mg daily Heparin drip ACS protocol (2) Atrial fibrillation Current Visit: Yes Status: Acute Plan: Patient is currently in AF, Rate controlled, monitor on tele continue Coreg 25 mg BID hold Xarelto and keep on Heparin drip. (3) Chronic diastolic heart failure Current Visit: Yes Status: Acute Plan: Patient looks euvolemic on exam with RHODA. Patient kidney function is better and back to normal. echo shows mild elevated filling pressure. recommend to start patient back on aldactone 25 mg daily and lasix 20 mg daily
--- NOTE | 2024-11-19 12:27 | P.PN ---
Subjective Date of Service: 11/19/24 Chief Complaint: CONFUSED, WEAK Subjective: Improving HE IS MUCH MORE AWAKE. WOKE UP AND RECOGNIZED ME. Review of Systems 10-point ROS is otherwise unremarkable General: Weakness Physical Examination - Vital Signs Temperature: 97.6 F Blood Pressure: 147/81 Pulse: 63 Respirations: 22 Pulse Ox (%): 100 - Physical Exam General: Oriented x3, Mild distress, Obese HEENT: Atraumatic, PERRLA, EOMI Neck: Supple, JVD not distended Respiratory: Clear to auscultation bilaterally, Normal air movement Cardiovascular: Regular rate/rhythm, Normal S1 S2 Gastrointestinal: Normal bowel sounds, No tenderness Musculoskeletal: No tenderness Integumentary: No rashes Neurological: Normal speech, Normal tone, Normal affect Lymphatics: No axilla or inguinal lymphadenopathy - Studies Microbiology Data (last 24 hrs): 11/17/24 13:55 Blood - Blood Blood Culture Gram Stain - Final 11/17/24 13:55 Blood - Blood Gram Stain - Final 11/17/24 14:20 Blood - Blood Blood Culture Gram Stain - Final 11/17/24 14:20 Blood - Blood Gram Stain - Final Medications List Reviewed: Yes Assessment And Plan - Current Problems (Diagnosis) (1) Septic shock Current Visit: Yes Status: Acute Plan: 4/ CULTURES POSITIVE. HE IS TOO WEAK FOR ZAIRA WILL DO ON SATURDAY. DISCUSSED WITH DR. DANIELSON ENDOCARDITIS IS LIKELY. 2D ECHO NEG, THAT CAN BE FALSE NEG. (2) Acute renal failure Current Visit: Yes Status: Acute Plan: IV HYDRATION DAILY LAB. CREAT DOWN IMPROVED. RESOLVED NOW. (3) Elevated troponin Current Visit: Yes Status: Acute Plan: MAY BE FALSE HIGH. DR. DANIELSON ON CASE IV HEPARIN STARTED. 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 IS NOT ABLE TO HANDLE HIS MEDICAL ISSUES.
[2024-11-19] MEDS ORDERED: ENOXAPARIN 40 MG/0.4 ML SQ SCH (13:16)
[2024-11-19] MEDS: RIVAROXABAN 20 MG TABLET PO SCH (16:50)
--- NOTE | 2024-11-19 16:52 | EKG ---
Test Date: 2024-11-17 Test Time: 15:18:33 Director [employer]: MEASUREMENT RESULTS: Intervals: Rate: 125 UT: QRSD: 124 QT: 322 QTc: 464 [place]: P: UT: QRS: 97 T: 240 INTERPRETIVE STATEMENTS: Atrial fibrillation Marked ST abnormality, possible inferior subendocardial injury Abnormal ECG Compared to ECG 11/17/2024 10:49:52 Possible ischemia no longer present ST (T wave) deviation still present Electronically Signed On 11-19-24 16:46:16 MANAGER PAPER by Daniel Kevin
--- NOTE | 2024-11-19 16:54 | EKG ---
Test Date: 2024-11-17 Test Time: 10:49:52 Finance Controller: NIRALI MEASUREMENT RESULTS: Intervals: Rate: 75 IL: QRSD: 122 QT: 470 QTc: 524 [place]: P: IL: QRS: 68 T: 255 INTERPRETIVE STATEMENTS: Atrial fibrillation ST & T wave abnormality, consider inferior ischemia or digitalis effect ST & T wave abnormality, consider anterolateral ischemia or digitalis effect Abnormal ECG Compared to ECG 08/02/2023 17:21:27 Right-axis deviation no longer present ST (T wave) deviation still present Possible ischemia still present Electronically Signed On 11-19-24 16:46:52 [employer] by Daniel Kevin
[2024-11-19 17:09] LABS: Absolute Eosinophils 0.1 K/uL (0-0.5); Absolute Lymphocytes (CBC) 1.2 K/uL (0.7-4.9); Absolute Monocytes 1.1 K/uL (0.1-1.3); Absolute Neutrophil 9.9 K/uL (1.8-8.0); Basophils % 0.3 % (0-1.3); Eosinophils % 0.6 % (0-4.4); Hemoglobin 12.3 g/dL (13.6-17.9); Lymphocytes % 9.6 % (15.3-44.8); MCH 32.9 pg (27.0-35.0); MCHC 35.1 g/dL (32.0-36.0); MCV 93.6 fL (80-100); MPV 9.4 fL (7.6-11.3); Monocytes % 8.7 % (3.3-12.3); Neutrophils % 80.8 % (41.7-73.7); Nucleated Red Blood Cells % 0.1 % (0-0); Platelets 126 thou/uL (152-406); RBC Red Blood Cell Count 3.74 M/uL (4.33-5.43); Red Cell Distribution Width 13.2 % (12.1-15.2)
[2024-11-20 05:45] LABS: Anion Gap 6.8 mEq/L (5.0-15.0); MPV 9.9 fL (7.6-11.3); Platelets 152 thou/uL (152-406); Potassium 3.8 mEq/L (3.5-5.1)
--- NOTE | 2024-11-20 13:50 | P.PN ---
Subjective Date of Service: 11/20/24 Chief Complaint: CONFUSED, WEAK Subjective: No new changes, No C/O voiced, Tolerating diet, Ambulating, Improving Review of Systems 10-point ROS is otherwise unremarkable Physical Examination - Vital Signs Temperature: 97.2 F Blood Pressure: 185/99 Pulse: 79 Respirations: 18 Pulse Ox (%): 92 - Physical Exam General: Alert, In no apparent distress HEENT: Atraumatic, PERRLA, EOMI Neck: Supple, JVD not distended Respiratory: Clear to auscultation bilaterally, Normal air movement Cardiovascular: Regular rate/rhythm, Normal S1 S2 Gastrointestinal: Normal bowel sounds, No tenderness Musculoskeletal: No tenderness Integumentary: No rashes Neurological: Normal speech, Normal tone, Normal affect Lymphatics: No axilla or inguinal lymphadenopathy - Studies Microbiology Data (last 24 hrs): 11/17/24 14:20 Blood - Blood Blood Culture Gram Stain - Final 11/17/24 14:20 Blood - Blood Gram Stain - Final 11/17/24 13:55 Blood - Blood Blood Culture Gram Stain - Final 11/17/24 13:55 Blood - Blood Gram Stain - Final Medications List Reviewed: Yes Assessment And Plan - Current Problems (Diagnosis) (1) NSTEMI (non-ST elevated myocardial infarction) Current Visit: Yes Status: Acute Plan: EKG shows ST depression inferior and lateral leads, patient had a stress test at cardiology office almost 4 months ago that shown fixed inferoapical defect, echo was normal EF, hard to assess wall motions with DD, repeated echo in hospital shows nor aEF, normal wills motion, patient troponin leak plateaued which can be type 2 due to acute kidney injury, hyperglycemia and sepsis. would recommend medical management at this point until patient condition is better, patient overall prognosis is poor. ASA 81 mg daily Lipitor 40 mg daily Heparin drip can be stopped and patient can be started on his oral anticoagulation. (2) Atrial fibrillation Current Visit: Yes Status: Acute Plan: Patient is currently in AF, Rate controlled, monitor on tele continue Coreg 25 mg BID restart Xarelto (3) Chronic diastolic heart failure Current Visit: Yes Status: Acute Plan: Patient looks euvolemic on exam with RHODA. Patient kidney function is better and back to normal. echo shows mild elevated filling pressure. recommend to start patient back on aldactone 25 mg daily and lasix 20 mg daily (4) Sepsis Current Visit: Yes Status: Acute Plan: patient blood cultures are positive, there is concern for endocarditis, will get ZAIRA Saturday.
--- NOTE | 2024-11-20 15:00 | P.PN ---
Subjective Date of Service: 11/20/24 Chief Complaint: WEAK, SEPTIC Subjective: Improving HE IS MUCH MORE AWAKE. WOKE UP AND RECOGNIZED ME. HEIS ABOUT THE SAME YESTERDAY CONFUSED ALL NIGHT WANTS DNR STATUS. Review of Systems 10-point ROS is otherwise unremarkable General: Weakness, Malaise Physical Examination - Vital Signs Temperature: 97.2 F Blood Pressure: 185/99 Pulse: 79 Respirations: 18 Pulse Ox (%): 92 - Physical Exam General: Mild distress, Confused, Delirious, Obese HEENT: Atraumatic, PERRLA, EOMI Neck: Supple, JVD not distended Respiratory: Clear to auscultation bilaterally, Normal air movement Cardiovascular: Regular rate/rhythm, Normal S1 S2 Gastrointestinal: Normal bowel sounds, No tenderness Musculoskeletal: No tenderness Integumentary: No rashes Neurological: Normal speech, Normal tone, Normal affect Lymphatics: No axilla or inguinal lymphadenopathy - Studies Microbiology Data (last 24 hrs): 11/17/24 14:20 Blood - Blood Blood Culture Gram Stain - Final 11/17/24 14:20 Blood - Blood Gram Stain - Final 11/17/24 13:55 Blood - Blood Blood Culture Gram Stain - Final 11/17/24 13:55 Blood - Blood Gram Stain - Final Medications List Reviewed: Yes Assessment And Plan - Current Problems (Diagnosis) (1) Septic shock Current Visit: Yes Status: Acute Plan: 4/4 CULTURES POSITIVE. HE IS TOO WEAK FOR ZAIRA WILL DO ON SATURDAY. DISCUSSED WITH DR. DANIELSON ENDOCARDITIS IS LIKELY. 2D ECHO NEG, THAT CAN BE FALSE NEG. (2) Acute renal failure Current Visit: Yes Status: Resolved Plan: IV HYDRATION DAILY LAB. CREAT DOWN IMPROVED. RESOLVED NOW. (3) Elevated troponin Current Visit: Yes Status: Acute Plan: MAY BE FALSE HIGH. DR. DANIELSON ON CASE IV HEPARIN STARTED. 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 IS NOT ABLE TO HANDLE HIS MEDICAL ISSUES. (5) Streptococcal sepsis Current Visit: Yes Status: Acute Plan: 4-4 CULTURES POS FOR STREP.S. ITIS PCN SENSITVE HE MAY HAVE ENDOCARDITIS. ZAIRA PENDING PLAN IS TO TREAT WITH 4 WEEKS WITH ROCEPHIN IV STOP MERREM TO USE MORE SPECIFIC THERAPY. PROGNOSIS POOR.
[2024-11-21 04:37] LABS: MPV 9.5 fL (7.6-11.3); Platelets 173 thou/uL (152-406)
[2024-11-21 04:57] LABS: Anion Gap 7.7 mEq/L (5.0-15.0); Potassium 3.7 mEq/L (3.5-5.1)
[2024-11-21] MEDS: CEFTRIAXONE 2,000 MG in NA CHLORIDE 0.9% 100 ML IV SCH (08:30)
[2024-11-21] MEDS: AMLODIPINE 5 MG TAB PO ONE (08:33)
--- NOTE | 2024-11-21 11:57 | P.PN ---
Subjective Date of Service: 11/21/24 Chief Complaint: WEAK, SEPTIC Subjective: Improving HE IS MUCH MORE AWAKE. WOKE UP AND RECOGNIZED ME. HEIS ABOUT THE SAME YESTERDAY CONFUSED ALL NIGHT WANTS DNR STATUS. LOT MORE AWAKE. PT CONSULTED. NO PT AVAILABLE TODAY. Review of Systems 10-point ROS is otherwise unremarkable General: Weakness Physical Examination - Vital Signs Temperature: 97.5 F Blood Pressure: 180/89 Pulse: 75 Respirations: 22 Pulse Ox (%): 98 - Physical Exam General: Mild distress HEENT: Atraumatic, PERRLA, EOMI Neck: Supple, JVD not distended Respiratory: Clear to auscultation bilaterally, Normal air movement Cardiovascular: Regular rate/rhythm, Normal S1 S2 Gastrointestinal: Normal bowel sounds, No tenderness Musculoskeletal: No tenderness Integumentary: No rashes Neurological: Normal speech, Abnormal strength, Dementia Lymphatics: No axilla or inguinal lymphadenopathy - Studies Microbiology Data (last 24 hrs): 11/17/24 14:20 Blood - Blood Blood Culture Gram Stain - Final 11/17/24 14:20 Blood - Blood Gram Stain - Final 11/17/24 13:55 Blood - Blood Blood Culture Gram Stain - Final 11/17/24 13:55 Blood - Blood Gram Stain - Final Medications List Reviewed: Yes Assessment And Plan - Current Problems (Diagnosis) (1) Septic shock Current Visit: Yes Status: Acute Plan: 4/4 CULTURES POSITIVE. HE IS TOO WEAK FOR ZAIRA WILL DO ON SATURDAY. DISCUSSED WITH DR. DANIELSON ENDOCARDITIS IS LIKELY. 2D ECHO NEG, THAT CAN BE FALSE NEG. (2) Acute renal failure Current Visit: Yes Status: Resolved Plan: IV HYDRATION DAILY LAB. CREAT DOWN IMPROVED. RESOLVED NOW. (3) Elevated troponin Current Visit: Yes Status: Acute Plan: MAY BE FALSE HIGH. DR. DANIELSON ON CASE IV HEPARIN STARTED. 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 IS NOT ABLE TO HANDLE HIS MEDICAL ISSUES. (5) Streptococcal sepsis Current Visit: Yes Status: Acute Plan: 4-4 CULTURES POS FOR STREP.S. ITIS PCN SENSITVE HE MAY HAVE ENDOCARDITIS. ZAIRA PENDING PLAN IS TO TREAT WITH 4 WEEKS WITH ROCEPHIN IV STOP MERREM TO USE MORE SPECIFIC THERAPY. PROGNOSIS POOR. STERP ANGINOSUS CAN BE ENDOCARDITIS RARELY. IT CAN ALSO PRESENT WITH BACTEREMIA WITHOUT SOURCE IN ABOUT 9 TO 16% OF PATIENTS ACCORDING TO UPTODATE.COM Bacteremia Unlike other viridans streptococci, S. anginosus group organisms rarely represent contaminants when isolated from blood cultures [78,79]. Within the S. anginosus group, S. anginosus may be more likely to cause bacteremia than S. constellatus or S. intermedius [28,80]. S. anginosus group bacteremia is often associated with a focal site of infection; isolated bacteremia without another identified site of infection has been reported in only 9 to 16 percent of cases [29,78]. Polymicrobial bacteremia is common and often associated with an underlying abscess [78]. The mortality rate of S. anginosus group bacteremia has ranged between 10 and 16 percent [79,81-84]. Because S. anginosus group organisms are not common causes of endocarditis, we do not routinely perform echocardiograms on all patients with bacteremia due to these organisms. For patients with bacteremia due to members of the S. anginosus group, we generally obtain echocardiography in patients with a prosthetic valve, those with persistent (>48 hours) bacteremia despite appropriate antibiotic therapy, and those who meet Monge criteria for possible endocarditis. If transthoracic echocardiography does not demonstrate findings consistent with endocarditis, then a transesophageal echocardiogram should be performed. Endocarditis Endocarditis due to the S. anginosus group is uncommon [85-88], typically representing <10 percent of endocarditis due to viridans streptococci [89], and bacteremia with these organisms is far less likely to be associated with endocarditis than bacteremia with S. mitis [86,90]. The presentation of endocarditis due to S. anginosus group is similar to that of other viridans streptococci [87,88,90]. S. anginosus seems more likely to cause endocarditis as compared with S. intermedius and S. constellatus [85,86].
[2024-11-21] MEDS: LOSARTAN POTASSIUM 50 MG TABLET PO SCH (20:15)
[2024-11-22 06:39] LABS: MPV 9.2 fL (7.6-11.3); Platelets 218 thou/uL (152-406)
[2024-11-22 07:12] LABS: Anion Gap 5.6 mEq/L (5.0-15.0); Potassium 3.6 mEq/L (3.5-5.1)
[2024-11-22] MEDS: AMLODIPINE 10 MG TAB PO SCH (08:30)
--- NOTE | 2024-11-22 09:42 | P.PN ---
Subjective Date of Service: 11/22/24 Chief Complaint: WEAK, SEPTIC Subjective: No new changes, No C/O voiced, Tolerating diet, Ambulating, Improving much more awake today Review of Systems 10-point ROS is otherwise unremarkable Physical Examination - Vital Signs Temperature: 97.6 F Blood Pressure: 183/91 Pulse: 67 Respirations: 20 Pulse Ox (%): 99 - Physical Exam General: Alert, In no apparent distress HEENT: Atraumatic, PERRLA, EOMI Neck: Supple, JVD not distended Respiratory: Clear to auscultation bilaterally, Normal air movement Cardiovascular: Regular rate/rhythm, Normal S1 S2 Gastrointestinal: Normal bowel sounds, No tenderness Musculoskeletal: No tenderness Integumentary: No rashes Neurological: Normal speech, Normal tone, Normal affect Lymphatics: No axilla or inguinal lymphadenopathy - Studies Microbiology Data (last 24 hrs): 11/17/24 14:20 Blood - Blood Aerobic Blood Culture - Final Streptococcus Anginosus [facility] 11/17/24 14:20 Blood - Blood Blood Culture Gram Stain - Final 11/17/24 14:20 Blood - Blood Anaerobic Blood Culture - Final Streptococcus Anginosus [facility] 11/17/24 14:20 Blood - Blood Gram Stain - Final 11/17/24 13:55 Blood - Blood Aerobic Blood Culture - Final Streptococcus Anginosus [facility] 11/17/24 13:55 Blood - Blood Blood Culture Gram Stain - Final 11/17/24 13:55 Blood - Blood Anaerobic Blood Culture - Final Streptococcus Anginosus [facility] 11/17/24 13:55 Blood - Blood Gram Stain - Final Medications List Reviewed: Yes Assessment And Plan - Current Problems (Diagnosis) (1) NSTEMI (non-ST elevated myocardial infarction) Current Visit: Yes Status: Acute Plan: EKG shows ST depression inferior and lateral leads, patient had a stress test at cardiology office almost 4 months ago that shown fixed inferoapical defect, echo was normal EF, hard to assess wall motions with DD, repeated echo in hospital shows nor aEF, normal wills motion, patient troponin leak plateaued which can be type 2 due to acute kidney injury, hyperglycemia and sepsis. would recommend medical management at this point, patient overall prognosis is poor. ASA 81 mg daily Lipitor 40 mg daily Heparin drip can be stopped and patient can be started on his oral anticoagulation. (2) Atrial fibrillation Current Visit: Yes Status: Acute Plan: Patient is currently in AF, Rate controlled, monitor on tele continue Coreg 25 mg BID restart Xarelto (3) Chronic diastolic heart failure Current Visit: Yes Status: Acute Plan: Patient looks euvolemic on exam with RHODA. Patient kidney function is better and back to normal. echo shows mild elevated filling pressure. recommend to start patient back on aldactone 25 mg daily and lasix 20 mg daily (4) Sepsis Current Visit: Yes Status: Acute Plan: patient blood cultures are positive, there is concern for endocarditis, will get ZAIRA Saturday.
--- NOTE | 2024-11-22 12:49 | P.PN ---
Subjective Date of Service: 11/22/24 Chief Complaint: WEAK, SEPTIC Subjective: Improving HE IS MUCH MORE AWAKE. WOKE UP AND RECOGNIZED ME. HEIS ABOUT THE SAME YESTERDAY CONFUSED ALL NIGHT WANTS DNR STATUS. LOT MORE AWAKE. PT CONSULTED. NO PT AVAILABLE TODAY. HE IS AWAKE, TRYING TO EAT BUT PER HE TENDS TO CHOKE. HAS R GREAT TOE WOUND THAT IS OLD AND TAKEN CARE BY FOOT DOCTOR BUT NEVER HAD MRI OR PVD STUDY. WOUND HAS NOT HEALED FOR A YEAR. Review of Systems 10-point ROS is otherwise unremarkable General: Weakness Physical Examination - Vital Signs Temperature: 97.6 F Blood Pressure: 183/91 Pulse: 67 Respirations: 20 Pulse Ox (%): 99 - Physical Exam General: Mild distress, Obese HEENT: Atraumatic, PERRLA, EOMI Neck: Supple, JVD not distended Respiratory: Clear to auscultation bilaterally, Normal air movement Cardiovascular: Regular rate/rhythm, Normal S1 S2 Gastrointestinal: Normal bowel sounds, No tenderness Musculoskeletal: No tenderness, Other (R GREAT TOE ULCER, CLEAN, NO PUS, NO GANGRENE. NO PULSE. ) Integumentary: No rashes Neurological: Normal speech, Normal tone, Normal affect Lymphatics: No axilla or inguinal lymphadenopathy - Studies Microbiology Data (last 24 hrs): 11/17/24 14:20 Blood - Blood Aerobic Blood Culture - Final Streptococcus Anginosus [facility] 11/17/24 14:20 Blood - Blood Blood Culture Gram Stain - Final 11/17/24 14:20 Blood - Blood Anaerobic Blood Culture - Final Streptococcus Anginosus [facility] 11/17/24 14:20 Blood - Blood Gram Stain - Final 11/17/24 13:55 Blood - Blood Aerobic Blood Culture - Final Streptococcus Anginosus [facility] 11/17/24 13:55 Blood - Blood Blood Culture Gram Stain - Final 11/17/24 13:55 Blood - Blood Anaerobic Blood Culture - Final Streptococcus Anginosus [facility] 11/17/24 13:55 Blood - Blood Gram Stain - Final Medications List Reviewed: Yes Assessment And Plan - Current Problems (Diagnosis) (1) Septic shock Current Visit: Yes Status: Acute Plan: 4/ CULTURES POSITIVE. HE IS TOO WEAK FOR ZAIRA WILL DO ON SATURDAY. DISCUSSED WITH DR. DANIELSON ENDOCARDITIS IS LIKELY. 2D ECHO NEG, THAT CAN BE FALSE NEG. (2) Acute renal failure Current Visit: Yes Status: Resolved Plan: IV HYDRATION DAILY LAB. CREAT DOWN IMPROVED. RESOLVED NOW. (3) Elevated troponin Current Visit: Yes Status: Acute Plan: MAY BE FALSE HIGH. DR. DANIELSON ON CASE IV HEPARIN STARTED. 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 IS NOT ABLE TO HANDLE HIS MEDICAL ISSUES. (5) Streptococcal sepsis Current Visit: Yes Status: Acute Plan: 4-4 CULTURES POS FOR STREP.S. ITIS PCN SENSITVE HE MAY HAVE ENDOCARDITIS. ZAIRA PENDING PLAN IS TO TREAT WITH 4 WEEKS WITH ROCEPHIN IV STOP MERREM TO USE MORE SPECIFIC THERAPY. PROGNOSIS POOR. STERP ANGINOSUS CAN BE ENDOCARDITIS RARELY. IT CAN ALSO PRESENT WITH BACTEREMIA WITHOUT SOURCE IN ABOUT 9 TO 16% OF PATIENTS ACCORDING TO UPTODATE.COM Bacteremia Unlike other viridans streptococci, S. anginosus group organisms rarely represent contaminants when isolated from blood cultures [78,79]. Within the S. anginosus group, S. anginosus may be more likely to cause bacteremia than S. constellatus or S. intermedius [28,80]. S. anginosus group bacteremia is often associated with a focal site of infection; isolated bacteremia without another identified site of infection has been reported in only 9 to 16 percent of cases [29,78]. Polymicrobial bacteremia is common and often associated with an underlying abscess [78]. The mortality rate of S. anginosus group bacteremia has ranged between 10 and 16 percent [79,81-84]. Because S. anginosus group organisms are not common causes of endocarditis, we do not routinely perform echocardiograms on all patients with bacteremia due to these organisms. For patients with bacteremia due to members of the S. anginosus group, we generally obtain echocardiography in patients with a prosthetic valve, those with persistent (>48 hours) bacteremia despite appropriate antibiotic therapy, and those who meet Monge criteria for possible endocarditis. If transthoracic echocardiography does not demonstrate findings consistent with endocarditis, then a transesophageal echocardiogram should be performed. Endocarditis Endocarditis due to the S. anginosus group is uncommon [85-88], typically representing <10 percent of endocarditis due to viridans streptococci [89], and bacteremia with these organisms is far less likely to be associated with endocarditis than bacteremia with S. mitis [86,90]. The presentation of endocarditis due to S. anginosus group is similar to that of other viridans streptococci [87,88,90]. S. anginosus seems more likely to cause endocarditis as compared with S. intermedius and S. constellatus [85,86]. (6) Diabetic foot ulcer Current Visit: Yes Status: Chronic Plan: MRI, DOPPLER MAY BE SOURCE OF BACTEREMIA (7) Aspiration into airway Current Visit: Yes Status: Acute Plan: POSSIBLE MBS ST
[2024-11-23 05:20] LABS: Absolute Basophils 0.1 K/uL (0-0.5); Absolute Eosinophils 0.1 K/uL (0-0.5); Absolute Lymphocytes (CBC) 1.7 K/uL (0.7-4.9); Absolute Monocytes 0.7 K/uL (0.1-1.3); Absolute Neutrophil 4.7 K/uL (1.8-8.0); Basophils % 0.8 % (0-1.3); Eosinophils % 1.6 % (0-4.4); Hematocrit 34.6 % (39.6-49.0); Hemoglobin 12.2 g/dL (13.6-17.9); Lymphocytes % 23.1 % (15.3-44.8); MCH 32.5 pg (27.0-35.0); MCHC 35.3 g/dL (32.0-36.0); MCV 91.9 fL (80-100); MPV 8.6 fL (7.6-11.3); Monocytes % 9.7 % (3.3-12.3); Neutrophils % 64.8 % (41.7-73.7); Nucleated Red Blood Cells % 0.1 % (0-0); Platelets 262 thou/uL (152-406); RBC Red Blood Cell Count 3.77 M/uL (4.33-5.43); Red Cell Distribution Width 13.2 % (12.1-15.2)
[2024-11-23 05:36] LABS: Anion Gap 7.9 mEq/L (5.0-15.0); Potassium 3.9 mEq/L (3.5-5.1)
[2024-11-23] MEDS: cloNIDine HCL 0.1 MG TAB PO PRN (06:11)
[2024-11-23] MEDS: D5 0.45 NS 1,000 ML IV SCH (08:24)
[2024-11-23] MEDS: carvediloL 25 MG TAB PO SCH (09:36)
--- NOTE | 2024-11-23 09:53 | RAD REPORT ---
EXAMINATION:Lower Extremity Arterial Bilat CLINICAL INDICATION: Male, 74 years old. pvd,bilateral TECHNIQUE: Arterial duplex ultrasound was performed of the bilateral lower extremities with real-time , color-flow, and spectral wave Doppler evaluation. Ankle brachial indices were not performed. COMPARISON: No prior exam. FINDINGS: Mild plaque throughout the evaluated arterial system. Biphasic waveforms are seen throughout the evaluated left lower extremity arterial system, to the lev el of the dorsalis pedis artery. No other suspicious findings. Biphasic waveforms are seen throughout the evaluated right lower extremity arterial system, to the le nini of the dorsalis pedis artery. No other suspicious findings. IMPRESSION: No evidence of significant peripheral vascular disease.
--- NOTE | 2024-11-23 09:59 | RAD REPORT ---
EXAM: MRI of the right foot without contrast HISTORY: Evaluate for osteomyelitis. om COMPARISON: TECHNIQUE: Multiplanar multisequence MR images were obtained of the right foot without contrast. FINDINGS: Mild elevated T2/IR signal is seen distal phalanx of the great toe. Mild edema signal is seen in the surrounding soft tissues. Ill-defined thickened skin and subcutaneous tissues seen along the plantar and medial aspects of the great toe. Marrow replacement is not seen to indicate osteomyelitis . No focal fluid collection is seen in the soft tissues. The muscles and tendons appear intact. IMPRESSION: No significant marrow signal abnormality to suggest osteomyelitis. Please note that evaluation is limited without IV contrast.
[2024-11-23] MEDS ORDERED: D50W 25 GM/50 ML SYRINGE IV PRN (11:11)
[2024-11-23] MEDS: D10W 125 ML IV PRN (11:24)
--- NOTE | 2024-11-23 12:12 | P.PN ---
Subjective Date of Service: 11/23/24 Chief Complaint: WEAK, SEPTIC Subjective: Improving HE IS AWAKE, TRYING TO EAT BUT PER HE TENDS TO CHOKE. HAS R GREAT TOE WOUND THAT IS OLD AND TAKEN CARE BY FOOT DOCTOR BUT NEVER HAD MRI OR PVD STUDY. WOUND HAS NOT HEALED FOR A YEAR. HE IS LOT BETTER STILL NEEDS PT TO AMBULATE. 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 Review of Systems 10-point ROS is otherwise unremarkable General: Weakness Physical Examination - Vital Signs Temperature: 98.2 F Blood Pressure: 167/63 Pulse: 65 Respirations: 16 Pulse Ox (%): 95 - Physical Exam General: Oriented x3, Mild distress, Obese HEENT: Atraumatic, PERRLA, EOMI Neck: Supple, JVD not distended Respiratory: Clear to auscultation bilaterally, Normal air movement Cardiovascular: Regular rate/rhythm, Normal S1 S2 Gastrointestinal: Normal bowel sounds, No tenderness Musculoskeletal: No tenderness Integumentary: No rashes, Other (R GREAT TOE DIABETIC ULCER, NO PUS, HAS SLIT LIKE ULCER.) Neurological: Normal speech, Normal tone, Normal affect Lymphatics: No axilla or inguinal lymphadenopathy - Studies Microbiology Data (last 24 hrs): 11/17/24 14:20 Blood - Blood Aerobic Blood Culture - Final Streptococcus Anginosus [facility] 11/17/24 14:20 Blood - Blood Blood Culture Gram Stain - Final 11/17/24 14:20 Blood - Blood Anaerobic Blood Culture - Final Streptococcus Anginosus [facility] 11/17/24 14:20 Blood - Blood Gram Stain - Final 11/17/24 13:55 Blood - Blood Aerobic Blood Culture - Final Streptococcus Anginosus [facility] 11/17/24 13:55 Blood - Blood Blood Culture Gram Stain - Final 11/17/24 13:55 Blood - Blood Anaerobic Blood Culture - Final Streptococcus Anginosus [facility] 11/17/24 13:55 Blood - Blood Gram Stain - Final Medications List Reviewed: Yes Assessment And Plan - Current Problems (Diagnosis) (1) Septic shock Current Visit: Yes Status: Acute Plan: 12/25 CULTURES POSITIVE. HE IS TOO WEAK FOR ZAIRA WILL DO ON SATURDAY. DISCUSSED WITH DR. DANIELSON ENDOCARDITIS IS LIKELY. 2D ECHO NEG, THAT CAN BE FALSE NEG. (2) Acute renal failure Current Visit: Yes Status: Resolved Plan: IV HYDRATION DAILY LAB. CREAT DOWN IMPROVED. RESOLVED NOW. (3) Elevated troponin Current Visit: Yes Status: Acute Plan: MAY BE FALSE HIGH. DR. DANIELSON ON CASE IV HEPARIN STARTED. 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 IS NOT ABLE TO HANDLE HIS MEDICAL ISSUES. (5) Streptococcal sepsis Current Visit: Yes Status: Acute Plan: 4-4 CULTURES POS FOR STREP.S. ITIS PCN SENSITVE HE MAY HAVE ENDOCARDITIS. ZAIRA PENDING PLAN IS TO TREAT WITH 4 WEEKS WITH ROCEPHIN IV STOP MERREM TO USE MORE SPECIFIC THERAPY. PROGNOSIS POOR. STERP ANGINOSUS CAN BE ENDOCARDITIS RARELY. IT CAN ALSO PRESENT WITH BACTEREMIA WITHOUT SOURCE IN ABOUT 9 TO 16% OF PATIENTS ACCORDING TO UPTODATE.COM Bacteremia Unlike other viridans streptococci, S. anginosus group organisms rarely represent contaminants when isolated from blood cultures [78,79]. Within the S. anginosus group, S. anginosus may be more likely to cause bacteremia than S. constellatus or S. intermedius [28,80]. S. anginosus group bacteremia is often associated with a focal site of infection; isolated bacteremia without another identified site of infection has been reported in only 9 to 16 percent of cases [29,78]. Polymicrobial bacteremia is common and often associated with an underlying abscess [78]. The mortality rate of S. anginosus group bacteremia has ranged between 10 and 16 percent [79,81-84]. Because S. anginosus group organisms are not common causes of endocarditis, we do not routinely perform echocardiograms on all patients with bacteremia due to these organisms. For patients with bacteremia due to members of the S. anginosus group, we generally obtain echocardiography in patients with a prosthetic valve, those with persistent (>48 hours) bacteremia despite appropriate antibiotic therapy, and those who meet Monge criteria for possible endocarditis. If transthoracic echocardiography does not demonstrate findings consistent with endocarditis, then a transesophageal echocardiogram should be performed. Endocarditis Endocarditis due to the S. anginosus group is uncommon [85-88], typically representing <10 percent of endocarditis due to viridans streptococci [89], and bacteremia with these organisms is far less likely to be associated with endocarditis than bacteremia with S. mitis [86,90]. The presentation of endocarditis due to S. anginosus group is similar to that of other viridans streptococci [87,88,90]. S. anginosus seems more likely to cause endocarditis as compared with S. intermedius and S. constellatus [85,86]. (6) Diabetic foot ulcer Current Visit: Yes Status: Chronic Plan: MRI, DOPPLER MAY BE SOURCE OF BACTEREMIA MRI NEG FOR OM DOPPLER NEG FOR PVD THIS IS GOOD NEWS. (7) Aspiration into airway Current Visit: Yes Status: Acute Plan: POSSIBLE MBS ST WAITING FOR ST AND MBS
--- NOTE | 2024-11-23 16:11 | RAD REPORT ---
Modified barium swallow exam with speech pathology service HISTORY: aspiration Fluoroscopy Time: 2:27 IMPRESSION: Please see the speech pathology service report for details. Barium contrast of multiple consistencies was provided the patient orally by the speech pathology dep artment. Fluoroscopic observation was performed during swallowing. The radiologist was not present for the examination. Provided images demonstrate no evidence for denis subglottic tracheal aspiration .
[2024-11-23] MEDS: INSULIN GLARGINE 100 UNIT/ML SQ SCH (21:11)
[2024-11-24 04:27] VITALS: O2SAT 99
[2024-11-24 05:31] LABS: MPV 8.2 fL (7.6-11.3); Platelets 281 thou/uL (152-406)
[2024-11-24 05:45] LABS: Anion Gap 5.7 mEq/L (5.0-15.0); Potassium 3.7 mEq/L (3.5-5.1)
--- NOTE | 2024-11-24 11:12 | P.PN ---
Subjective Date of Service: 11/24/24 Chief Complaint: WEAK, SEPTIC Subjective: No new changes, No C/O voiced, Tolerating diet, Ambulating, Improving much more awake today Review of Systems 10-point ROS is otherwise unremarkable Physical Examination - Vital Signs Temperature: 97.5 F Blood Pressure: 137/70 Pulse: 68 Respirations: 20 Pulse Ox (%): 98 - Physical Exam General: Alert, In no apparent distress HEENT: Atraumatic, PERRLA, EOMI Neck: Supple, JVD not distended Respiratory: Clear to auscultation bilaterally, Normal air movement Cardiovascular: Irregular heart rate/rhythm Gastrointestinal: Normal bowel sounds, No tenderness Musculoskeletal: No tenderness Integumentary: No rashes Neurological: Normal speech, Normal tone, Normal affect Lymphatics: No axilla or inguinal lymphadenopathy - Studies Medications List Reviewed: Yes Assessment And Plan - Current Problems (Diagnosis) (1) NSTEMI (non-ST elevated myocardial infarction) Current Visit: Yes Status: Acute Plan: EKG shows ST depression inferior and lateral leads, patient had a stress test at cardiology office almost 4 months ago that shown fixed inferoapical defect, echo was normal EF, hard to assess wall motions with DD, repeated echo in hospital shows nor aEF, normal wills motion, patient troponin leak plateaued which can be type 2 due to acute kidney injury, hyperglycemia and sepsis. would recommend medical management at this point, patient overall prognosis is poor. ASA 81 mg daily Lipitor 40 mg daily. (2) Atrial fibrillation Current Visit: Yes Status: Acute Plan: Patient is currently in AF, Rate controlled, monitor on tele continue Coreg 25 mg BID continue Xarelto (3) Chronic diastolic heart failure Current Visit: Yes Status: Acute Plan: Patient looks euvolemic on exam with RHODA. Patient kidney function is better and back to normal. echo shows mild elevated filling pressure. recommend to start patient back on aldactone 25 mg daily and lasix 20 mg daily (4) Sepsis Current Visit: Yes Status: Acute Plan: patient blood cultures are positive, there is concern for endocarditis, ZAIRA probe is not working so we can not do ZAIRA, would advise rat exterminator ABX as patient is not a surgical candidate anyway.
--- NOTE | 2024-11-24 12:04 | P.DS ---
Admission Date: 11/17/24 Discharge Date: 11/24/24 Disposition: TRANSFER TO ASSISTED Discharge Condition: GOOD Reason for Admission: WEAK, SEPTIC - Problems (1) Septic shock Current Visit: Yes Status: Acute (2) Acute renal failure Current Visit: Yes Status: Resolved (3) Elevated troponin Current Visit: Yes Status: Acute (4) Coronary artery disease due to type 2 diabetes mellitus Current Visit: No Status: Chronic (5) Streptococcal sepsis Current Visit: Yes Status: Acute (6) Diabetic foot ulcer Current Visit: Yes Status: Chronic (7) Aspiration into airway Current Visit: Yes Status: Acute Brief History of Present Illness: CORDELL IS A DIABETIC WITH MODERATE DEMENTIA AND IS NOT ABLE TO TAKE CARE OF HIMSELF. 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 HE COMES WITH CONFUSION AND WEAKNESS. HE IS FOUND TO HAVE HYPERGLYCEMIA, ACUTE RENAL FA ILURE AND SEPSIS. HIS IS IN THE HOSPITAL FOR TWO DAYS WITH PE. Hospital Course: CORDELL IS A POORLY CONTROLLED DIABETIC HE WITH DEMENTIA IS NOT ABLE TO CONTROL HIS DIET OR MEDS. 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 HE COMES WITH HYPERGLYCEMIA, SEPTIC SHOCK, ACUTE RENAL FAILURE AND IMPROVES ON IV MERREM WITH HYDRATION. HE IS MENTALLY BACK TO BASELINE BUT GENERALLY WEAK. HE GREW STREP BACTERIA IN 4/4 CULTURE BOTTLES. ECHO I SNORMAL. HIS FOOT ULCER THAT IS CHRONIC FOR A YEAR COULD BE SOURCE OF THIS BACTERIA. FOOT WOUND IS CLEAN AND MRI NEG FOR OM. HE WAS TO HAVE A ZAIRA BUT MACHINE IS BROKE AT [facility]. HE WILL CONTINUE FOUR WEEKS OF ANTIBIOTICS AND FINISH WITH ENDOCARDITIS TREATMENT. I DOWNGRADED ANTIBIOTIC TO ROCEPHIN WHEN CULTURE CAME BACK. 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 DW . Vital Signs/Physical Exam: Temp Pulse Resp BP Pulse Ox 97.5 F 68 20 137/70 98 11/24/24 11:11 11/24/24 11:11 11/24/24 11:11 11/24/24 11:11 11/24/24 11:11 Laboratory Data at Discharge: WBC 7.30 thou/uL (4.3-10.9) 11/23/24 05:07 Hgb 12.2 g/dL (13.6-17.9) L 11/23/24 05:07 Hct 34.6 % (39.6-49.0) L 11/23/24 05:07 Plt Count 281 thou/uL (152-406) 11/24/24 05:15 PT 13.8 SECONDS (10.0-13.0) H 11/17/24 18:52 INR 1.22 11/17/24 18:52 APTT 40.0 SECONDS (24.3-36.9) H 11/19/24 10:45 Sodium 137 mEq/L (136-145) 11/24/24 05:15 Potassium 3.7 mEq/L (3.5-5.1) 11/24/24 05:15 BUN 11 mg/dL (7-18) 11/24/24 05:15 Creatinine 0.63 mg/dL (0.70-1.30) L 11/24/24 05:15 Glucose 164 mg/dL (74-106) H 11/24/24 05:15 Total Bilirubin 0.7 mg/dL (0.2-1.0) 11/17/24 14:20 AST 34 U/L (15-37) 11/17/24 14:20 ALT 28 U/L (16-61) 11/17/24 14:20 Alkaline Phosphatase 191 U/L (45-117) H 11/17/24 14:20 Home Medications: Duloxetine HCl [Cymbalta] 60 mg PO BID 05/31/16 Areds 2 1 tab PO BID 06/08/22 Atorvastatin Calcium [Lipitor] 40 mg PO BEDTIME 06/08/22 Carvedilol [Coreg] 6.25 mg PO BID 06/08/22 Losartan Potassium [Cozaar] 50 mg PO BEDTIME 06/08/22 Rivaroxaban [Xarelto] 20 mg PO DAILY AT SUPPER 06/08/22 Furosemide [Lasix*] 40 mg PO BID 08/02/23 Metformin HCl 1,000 mg PO BID 08/02/23 Propylene Glycol/Peg 400/Pf [Systane 0.3-0.4% Eye Drop] 1 each OP BID 08/02/23 Repaglinide [Prandin] 2 mg PO SEECOM 08/02/23 Spironolactone [Aldactone] 50 mg PO DAILY 08/02/23 Insulin Glargine,Hum.rec.anlog [Lantus] 65 unit SQ BEDTIME 04/29/24 cloNIDine HCL [Catapres*] 0.1 mg PO Q4H PRN tab 11/24/24 Followup: Bill Mitchell MD [Primary Care Provider] - 1-2 Weeks
[2024-11-24 12:48] VITALS: BP 135/56; TEMP 98.3
== END 2024-11-24 15:56 | DRG 871 ==
LOC: ER 09:27 → ERHOLD 15:06 → 2ND 19:25
PROVIDERS: ADMIT Internal Medicine; ATTEND Internal Medicine
PROC: 02HV33Z Insertion of Infusion Device into Superior Vena Cava, Percutaneous Approach (ICD-10-PCS; principal; 2024-11-18)
DX: A40.1 Sepsis due to streptococcus, group B (principal); I21.A1 Myocardial infarction type 2; R65.21 Severe sepsis with septic shock; J18.9 Pneumonia, unspecified organism; E87.21 Acute metabolic acidosis; N17.9 Acute kidney failure, unspecified; I50.32 Chronic diastolic (congestive) heart failure; I38 Endocarditis, valve unspecified; I11.0 Hypertensive heart disease with heart failure; E11.65 Type 2 diabetes mellitus with hyperglycemia; E11.621 Type 2 diabetes mellitus with foot ulcer; L97.519 Non-pressure chronic ulcer of other part of right foot with unspecified severity; E86.0 Dehydration; E66.9 Obesity, unspecified; I48.91 Unspecified atrial fibrillation; E78.00 Pure hypercholesterolemia, unspecified; I25.10 Atherosclerotic heart disease of native coronary artery without angina pectoris; F03.B0 Unspecified dementia, moderate, without behavioral disturbance, psychotic disturbance, mood disturbance, and anxiety; Z96.1 Presence of intraocular lens; Z79.4 Long term (current) use of insulin; Z95.1 Presence of aortocoronary bypass graft; Z68.31 Body mass index [BMI] 31.0-31.9, adult; Z79.01 Long term (current) use of anticoagulants; Z96.642 Presence of left artificial hip joint; Z79.84 Long term (current) use of oral hypoglycemic drugs; Z79.899 Other long term (current) drug therapy; Z85.038 Personal history of other malignant neoplasm of large intestine; W18.30XA Fall on same level, unspecified, initial encounter; Y92.9 Unspecified place or not applicable; Y93.9 Activity, unspecified; Y99.9 Unspecified external cause status
CPT/HCPCS: 36415; 36569; 51702; 70450; 71045; 71275; 72125; 74176; 74230; 80048; 80053; 80076; 81001; 82947; 83605; 84484; 85025; 85049; 85610; 85730; 87040; 87077; 87186; 87205; 92611; 93005; 93306; 93925; 99285; J0696; J1815; J2185; J7030; J7799; Q9967